=== PATIENT | male | born 1950 | race Caucasian/White ===

== ENCOUNTER 2016-04-23 00:01 | Emergency (ER) | payer OTHER ==
[~2016-04-23 00:01] MED LIST: ATOR1TAB21 PO; LISI-538 PO; METRCRM TOP; MULTCAP PO; NEXI40CA PO; STOO100C PO
[2016-04-23] MEDS ORDERED: ASPIRIN 81 MG CHEW TABLET As Ordered ONE (00:15)
[2016-04-23 01:14] LABS: BASO # 0.1 K/mm3 (0.0-0.2); BASO % 0.7 % (0.0-1.0); EOS # 0.7 K/mm3 (0.0-0.50); EOS % 8.1 % (0.0-3.0); LARGE UNSTAINED CELL # 0.5 K/mm3 (0.0-0.4); LARGE UNSTAINED CELL % 5.2 % (0.0-4.0); LYMPH # 1.7 K/mm3 (1.5-4.5); LYMPH % 20.1 % (24.0-44.0); MEAN CORPUSCULAR HEMOGLOBIN 30.8 pg (27.0-33.0); MEAN CORPUSCULAR HGB CONC 33.4 g/dl (32.0-36.5); MEAN CORPUSCULAR VOLUME 92.4 fl (80.0-96.0); MONO # 0.9 K/mm3 (0.0-0.8); MONO % 10.2 % (0.0-5.0); NEUTROPHILS # 4.8 K/mm3 (1.8-7.7); NEUTROPHILS % 55.7 % (36.0-66.0); PLATELET COUNT, AUTOMATED 351 k/mm3 (150-450); RED CELL DISTRIBUTION WIDTH 13.7 % (11.5-14.5); WHITE BLOOD COUNT 8.7 K/mm3 (4.0-10.0)
[2016-04-23 01:27] LABS: ANION GAP 7 MEQ/L (8-16); BLOOD UREA NITROGEN 20 MG/DL (7-18); CALCIUM LEVEL 8.3 MG/DL (8.8-10.2); CARBON DIOXIDE LEVEL 28 MEQ/L (21-32); CHLORIDE LEVEL 112 MEQ/L (98-107); GLOMERULAR FILTRATION RATE > 60.0 (>49); GLUCOSE, FASTING 123 MG/DL (80-110); POTASSIUM SERUM 3.8 MEQ/L (3.5-5.1); SODIUM LEVEL 147 MEQ/L (136-145)
[2016-04-23] MEDS ORDERED: PERCOCET 5MG/325MG TAB As Ordered ONE (01:28)
[2016-04-23] MEDS ORDERED: ISOVUE-370 76% 100ML VIAL (Q9967) As Ordered ONE (01:34)
--- NOTE | 2016-04-23 02:30 | REPUSA ---
CLINICAL HISTORY: Dyspnea, exclude PE. TECHNIQUE: Multiple incremental axial, coronal and oblique images are obtained from the thoracic inle t to the upper abdomen. Intravenous contrast material was administered as per pulmonary embolism prot ocol. COMMENTS: Comparison is made to the prior exam on 05/01/2015. Calcified mediastinal and hilar lymph nodes. The largest measures 1.5 cm. Bilateral paramediastinal pulmonary interstitial thickening and scarring. Mild bilateral basilar subp leural interstitial chronic pulmonary thickening. Enlarged pulmonary arteries. There is excellent opacification of pulmonary arterial system without evidence for pulmonary embolism . Aorta is of normal caliber without evidence for dissection or aneurysm. Pacemaker lies in good posi tion. There is no evidence of pleural or parenchymal mass. There are no pleural effusions. There is no evid ence of hilar or mediastinal lymphadenopathy. The heart and great vessels are within normal limits. Images of the upper abdomen demonstrate no evidence of adrenal mass. The bony structures are free of lytic or blastic lesions. Multilevel degenerative changes are seen in volving the visualized thoracolumbar spine. Scattered calcifications are seen involving the aorta and major branches compatible with atherosclero sis. Moderate large bowel fecal stasis. IMPRESSION: No evidence for pulmonary embolism. Diffuse bilateral interstitial pulmonary thickening representing a chronic, unchanged finding. Suspected pulmonary hypertension. Cardiomegaly. Thank you for your kind referral of this patient.
--- NOTE | 2016-04-23 03:24 | EDDOCDS ---
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 Aspirin was not taken prior to arrival. Adult Sepsis Screening: The patient does not have new or worsening altered mentation. Patient's respiratory rate is less than 22. Systolic blood pressure is greater than 100. Patient has a qSOFA score of 0- Negative Sepsis Screen. Suicide/Homicide risk assessment- the patient denies having any suicidal and/or homicidal ideations and does not present with any other emotional, behavioral or mental health complaints. 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 Transition of care: patient was not received from another setting of care. 00:06 Acuity: KAREN Level 3 tm5 00:06 Method Of Arrival: Walkin/Carried/Asstd tm5 Triage Assessment: 00:12 General: Appears in no apparent distress, Behavior is appropriate for age, cooperative. tm5 Pain: Location: mid-sternal area Pain currently is 1 out of 10 on a pain scale. Quality of pain is described as aching. Pt Declines HIV testing. The patient is triaged at the bedside. See Assessment in Nurses Notes section of ED record. Neurological: Level of Consciousness is awake, alert, Oriented to person, place, time. Cardiovascular: Chest pain is described as vague, radiates Does not radiate. episodes past 2 days began 2 days. Respiratory: Airway is patent Respiratory effort is even, unlabored, Respiratory pattern is regular, symmetrical. Derm: Skin is pink, warm & dry. Historical: - Allergies: Polysporin; - Home Meds: 1. aspirin 325 mg Oral tab 1 tab once daily 2. lisinopril 20 mg Oral tab 1 tab once daily 3. Nexium 40 mg Oral cpDR 1 cap 2 times per day 4. atorvastatin 20 mg oral tab 1 tab once daily - PMHx: Hiatal Hernia; Hodgkin's Lymphoma; Hypercholesterolemia; Hypertension; - PSHx: Pacemaker Insertion; spleenectomy; - Social history: Smoking status: Patient states was never smoker of tobacco. No barriers to communication noted, The patient speaks fluent [place]. - Family history: Not pertinent. - : The pt / caregiver states he / she is not on anticoagulants. Home medication list is obtained from the patient. - Exposure Risk Screening:: None identified. Screenin:16 Screening information is obtained from the patient. Fall risk: No risks identified. tm5 Assistance ADL's: requires no assistance with activities of daily living. Abuse/DV Screen: The patient / caregiver reports he/she is: not in a situation that causes fear, pain or injury. Nutritional screening: No deficits noted. Advance Directives: Currently, there is no health care proxy. There is no active DNR order. home support is adequate. Assessment: 00:30 General: Appears in no apparent distress, comfortable, Behavior is appropriate for age, cf2 cooperative. 02:57 Cardiovascular: Rhythm is ventricular pacer Chest pain is denied Reports cough cold cf2 symptoms. Vital Signs: 00:12 Pulse 89; Resp 20 S; Temp 98.3(O); Pulse Ox 100% on R/A; Weight 79.38 kg; Height 5 ft. tm5 8 in. (172.72 cm); Pain 1/10; 00:18 BP 153 / 87; tm5 01:17 BP 134 / 64 (auto/); cf2 01:17 Pulse 90 MON; Pulse Ox 93% ; cf2 01:17 BP 122 / 71; cf2 01:23 Pulse 90 MON; Pulse Ox 93% ; cf2 01:33 Pulse 88 MON; Pulse Ox 94% ; cf2 01:49 Pulse 94 MON; Pulse Ox 95% ; cf2 01:55 Pulse 88 MON; Pulse Ox 93% ; cf2 02:02 Pulse 86 MON; Pulse Ox 95% ; cf2 02:12 Pulse 86 MON; Pulse Ox 93% ; cf2 02:19 Pulse 86 MON; Pulse Ox 93% ; cf2 02:27 Pulse 82 MON; Pulse Ox 94% ; cf2 02:34 Pulse 88 MON; Pulse Ox 95% ; cf2 02:41 Pulse 82 MON; Pulse Ox 93% ; cf2 02:45 Pulse 80 MON; Pulse Ox 93% ; cf2 00:12 Body Mass Index 26.61 (79.38 kg, 172.72 cm) tm5 Vitals: 00:12 Log In Time: April 23, 2016 at 00:14. tm5 ED Course: 00:02 Patient visited by Carlene Bauer. jp5 00:02 Patient moved to Waiting jp5 00:05 Patient visited by Suzy Bailey,JIA. tm5 00:05 Patient moved to 11 cz 00:07 Triage Initiated tm5 00:09 Ann Rangel MD is Attending Physician. fg 00:09 Patient visited by Ann Rangel MD. fg 00:11 Criss Jenkins,JIA is Primary Nurse. cf2 00:11 Patient visited by Criss Jenkins RN. cf2 00:12 Family accompanied patient. tm5 00:22 Patient visited by Criss Jenkins RN. cf2 00:24 Pt greeted and oriented to ED. Patient advised of names of staff involved in care, jmv location of call mata, wait times and NPO status. Accompanied by Significant Other, Patient has correct armband on for positive identification. Placed in gown. Bed in low position. Call light in reach. Side rails up X2. telemetry monitor on. Pulse ox on. NIBP on. 00:24 EKG done. (by ED staff). Reviewed by Ann Rangel MD. jmv 00:25 Patient visited by Mike Savage PCA. jmv 00:45 Troponin Sent. cf2 00:56 Patient visited by Criss Jenkins RN. cf2 00:57 -Influenza A&B Rapid Antigen - Nose Sent. cf2 00:57 -Blood Culture Sent. cf2 00:57 B-Type Natiuretic Peptide Sent. cf2 00:57 Basic Metabolic Profile Sent. cf2 00:57 CBC with Diff Sent. cf2 00:57 Cardiac Injury Profile Sent. cf2 01:09 Patient visited by Criss Jenkins RN. cf2 01:43 [facility] Payment Agreement was scanned into [employer] and attached to record. hs2 01:52 Patient visited by Criss Jenkins RN. cf2 02:35 Truong Arambula MD is Referral Physician. fg 02:53 CT Chest Angio R/O PE Returned. EDMS 02:57 Patient visited by Criss Jenkins RN. cf2 03:13 Patient moved to cz 03:23 The patient / caregiver is instructed regarding the plan of care and ED course. cf2 03:23 Discontinued lock. No procedures done that require assistance. cf2 Administered Medications: 00:20 Drug: Aspirin 324 mg [aspirin 81 mg chewable tablet (4 tabs)] Route: PO; cf2 01:30 Drug: oxyCODONE-acetaminophen 1 tabs [oxycodone-acetaminophen 5 mg-325 mg tablet (1 cf2 tabs)] Route: PO; Order Results: Lab Order: B-Type Natiuretic Peptide; SPEC'M 04/23/16 00:26 Test: BRAIN NATRIURETIC PEPTIDE; Value: 161; Range: <100; Abnormal: Above high normal; Units: PG/ML; Status: F Lab Order: Basic Metabolic Profile; SPEC'M 04/23/16 00:26 Test: GLUCOSE, FASTING; Value: 123; Range: 80-110; Abnormal: Above high normal; Units: MG/DL; Status: F Test: BLOOD UREA NITROGEN; Value: 20; Range: 7-18; Abnormal: Above high normal; Units: MG/DL; Status: F Test: CREATININE FOR GFR; Value: 1.00; Range: 0.70-1.30; Units: MG/DL; Status: F Test: GLOMERULAR FILTRATION RATE; Value: > 60.0; Range: >49; Status: F Test: SODIUM LEVEL; Value: 147; Range: 136-145; Abnormal: Above high normal; Units: MEQ/L; Status: F Test: POTASSIUM SERUM; Value: 3.8; Range: 3.5-5.1; Units: MEQ/L; Status: F Test: CHLORIDE LEVEL; Value: 112; Range: 98-107; Abnormal: Above high normal; Units: MEQ/L; Status: F Test: CARBON DIOXIDE LEVEL; Value: 28; Range: 21-32; Units: MEQ/L; Status: F Test: ANION GAP; Value: 7; Range: 8-16; Abnormal: Below low normal; Units: MEQ/L; Status: F Test: CALCIUM LEVEL; Value: 8.3; Range: 8.8-10.2; Abnormal: Below low normal; Units: MG/DL; Status: F Test Note: ; Units are mL/min/1.73 m2 Chronic Kidney Disease Staging per NKF: Stage I & II GFR >=60 Normal to Mildly Decreased Stage III GFR 30-59 Moderately Decreased Stage IV GFR 15-29 Severely Decreased Stage V GFR <15 Very Little GFR Left ESRD GFR <15 on MEDICAL INTERN Lab Order: CBC with Diff; MARILU 04/23/16 00:26 Test: WHITE BLOOD COUNT; Value: 8.7; Range: 4.0-10.0; Units: K/mm3; Status: F Test: RED BLOOD COUNT; Value: 4.37; Range: 4.30-6.10; Units: M/mm3; Status: F Test: HEMOGLOBIN; Value: 13.5; Range: 14.0-18.0; Abnormal: Below low normal; Units: g/dl; Status: F Test: HEMATOCRIT; Value: 40.3; Range: 42.0-52.0; Abnormal: Below low normal; Units: %; Status: F Test: MEAN CORPUSCULAR VOLUME; Value: 92.4; Range: 80.0-96.0; Units: fl; Status: F Test: MEAN CORPUSCULAR HEMOGLOBIN; Value: 30.8; Range: 27.0-33.0; Units: pg; Status: F Test: MEAN CORPUSCULAR HGB CONC; Value: 33.4; Range: 32.0-36.5; Units: g/dl; Status: F Test: RED CELL DISTRIBUTION WIDTH; Value: 13.7; Range: 11.5-14.5; Units: %; Status: F Test: PLATELET COUNT, AUTOMATED; Value: 351; Range: 150-450; Units: k/mm3; Status: F Test: NEUTROPHILS %; Value: 55.7; Range: 36.0-66.0; Units: %; Status: F Test: LYMPH %; Value: 20.1; Range: 24.0-44.0; Abnormal: Below low normal; Units: %; Status: F Test: MONO %; Value: 10.2; Range: 0.0-5.0; Abnormal: Above high normal; Units: %; Status: F Test: EOS %; Value: 8.1; Range: 0.0-3.0; Abnormal: Above high normal; Units: %; Status: F Test: BASO %; Value: 0.7; Range: 0.0-1.0; Units: %; Status: F Test: LARGE UNSTAINED CELL %; Value: 5.2; Range: 0.0-4.0; Abnormal: Above high normal; Units: %; Status: F Test: NEUTROPHILS #; Value: 4.8; Range: 1.8-7.7; Units: K/mm3; Status: F Test: LYMPH #; Value: 1.7; Range: 1.5-4.5; Units: K/mm3; Status: F Test: MONO #; Value: 0.9; Range: 0.0-0.8; Abnormal: Above high normal; Units: K/mm3; Status: F Test: EOS #; Value: 0.7; Range: 0.0-0.50; Abnormal: Above high normal; Units: K/mm3; Status: F Test: BASO #; Value: 0.1; Range: 0.0-0.2; Units: K/mm3; Status: F Test: LARGE UNSTAINED CELL #; Value: 0.5; Range: 0.0-0.4; Abnormal: Above high normal; Units: K/mm3; Status: F Lab Order: Cardiac Injury Profile; SPEC'M 04/23/16 00:26 Test: CPK CREATINE PHOSPHOKINASE; Value: 223; Range: 39-308; Units: U/L; Status: F Test: CK-MB VALUE MASS; Value: 3.7; Range: 0.0-3.6; Abnormal: Above high normal; Units: NG/ML; Status: F Test: MB/CK RELATIVE INDEX; Value: 1.65; Range: < OR =4; Status: F Test Note: ; DIAGNOSIS CRITERIA MMB ng/ml Relative Index (RI) NON-AMI < or = 5 N/A ARANA ZONE > 5 < or = 4 AMI > 5 > 4 Lab Order: Troponin; SPEC'M 04/23/16 00:26 Test: TROPONIN I; Value: 0.05; Range: < 0.10; Units: NG/ML; Status: F Test Note: ; Troponin I Reference Interval for [employer] LOCI: 99th Percentile= 0.00-0.045 ng/ml Risk Stratification: <= 0.10 ng/ml Decreased Risk for Adverse Clinical Events. 0.10-1.50 ng/ml Increased Risk for Adverse Clinical Events. Evaluation of additional criterion and/or repeat testing in 2-6 hours is suggested to rule out myocardial damage. >= 1.50 ng/ml Indicative of Myocardial Injury. Lab Order: -Influenza A&B Rapid Antigen - Nose; SPEC'M 04/23/16 00:26 Test: INFLUENZA A RAPID SCR by ICA; Value: INFLUENZA A RESULTS NEGATIVE; Status: F Test: INFLUENZA A RAPID SCR by ICA; Value: Comments:; Status: F Test: INFLUENZA B RAPID SCR by ICA; Value: INFLUENZA B RESULTS NEGATIVE; Status: F Test Note: ; The Influenza test is a direct rapid immunoassay for the qualitative detection of Influenza viral antigen. Cell culture (Viral Culture) testing should be considered to confirm NEGATIVE results and to assist in detecting other viruses that can provide similar clinical symptoms. Please contact the lab within 24 hours ([phone] if confirmatory testing is desired. Radiology Order: CT Chest Angio R/O PE Test: CT Chest Angio R/O PE REASON FOR EXAMINATION: Chest Pain;Shortness of Breath; ; CLINICAL HISTORY: Dyspnea, exclude PE.; TECHNIQUE: Multiple incremental axial, coronal and oblique images are obtained from the thoracic inle; t to the upper abdomen. Intravenous contrast material was administered as per pulmonary embolism prot; ocol.; COMMENTS:; Comparison is made to the prior exam on 05/01/2015.; Calcified mediastinal and hilar lymph nodes. The largest measures 1.5 cm.; Bilateral paramediastinal pulmonary interstitial thickening and scarring. Mild bilateral basilar subp; leural interstitial chronic pulmonary thickening.; Enlarged pulmonary arteries.; There is excellent opacification of pulmonary arterial system without evidence for pulmonary embolism; . Aorta is of normal caliber without evidence for dissection or aneurysm. Pacemaker lies in good posi; tion.; There is no evidence of pleural or parenchymal mass. There are no pleural effusions. There is no evid; ence of hilar or mediastinal lymphadenopathy. The heart and great vessels are within normal limits.; Images of the upper abdomen demonstrate no evidence of adrenal mass.; The bony structures are free of lytic or blastic lesions. Multilevel degenerative changes are seen in; volving the visualized thoracolumbar spine.; Scattered calcifications are seen involving the aorta and major branches compatible with atherosclero; sis.; Moderate large bowel fecal stasis.; IMPRESSION:; No evidence for pulmonary embolism.; Diffuse bilateral interstitial pulmonary thickening representing a chronic, unchanged finding.; Suspected pulmonary hypertension.; Cardiomegaly.; Thank you for your kind referral of this patient.; ; Outcome: 02:13 Discharge ordered by Provider. fg 02:35 Discharge ordered by Provider. fg 03:22 Discharge Assessment: Patient awake, alert and oriented x 3. No cognitive and/or cf2 functional deficits noted. Patient verbalized understanding of disposition instructions. Patient awake and alert. Oriented to person, place and time. patient administered narcotics - yes. Pt provided with safe discharge. The following High Risk Discharge criteria are identified: None. Discharged to home ambulatory. Condition: good. Discharge instructions given to patient, Instructed on discharge instructions, follow up and referral plans. Demonstrated understanding of instructions, Pt was receptive of discharge instructions/ teaching. CT Study completed. Property :Personal belongings accompany Pt. 03:23 Patient left the ED. cf2 Signatures: Dispatcher [employer] EDMS Donato Valera, RN RN Carlene Billings jp5 Ann Rangel MD MD fg Stanton, Hillary, Reg Reg hs2 Criss JenkinsRN RN cf2 Mike Savage, DISABILITY COORDINATOR DISABILITY COORDINATOR fernandav Suzy Bailey,RN RN tm5 Corrections: (The following items were deleted from the chart) 02:59 02:57 General: Appears in no apparent distress, comfortable, Behavior is appropriate cf2 for age, cooperative, cf2 MTDD
--- NOTE | 2016-04-23 03:24 | EDDOCDS ---
Physician Documentation [facility] Name: Phill Corey Age: 66 yrs Sex: Male : 1950 Arrival Date: 04/23/2016 Time: 00:01 Bed D1 Private MD: Disposition: 04/23/16 02:35 Discharged to Home/Self Care. Impression: Chest pain, unspecified. - Condition is Stable. - Discharge Instructions: Nonspecific Chest Pain. - Medication Reconciliation, Local Pharmacy Hours form. - Follow up: Truong Arambula MD; When: Tomorrow; Reason: Continuance of care. - Problem is an ongoing problem. - Symptoms are unchanged. Historical: - Allergies: Polysporin; - Home Meds: 1. aspirin 325 mg Oral tab 1 tab once daily 2. lisinopril 20 mg Oral tab 1 tab once daily 3. Nexium 40 mg Oral cpDR 1 cap 2 times per day 4. atorvastatin 20 mg oral tab 1 tab once daily - PMHx: Hiatal Hernia; Hodgkin's Lymphoma; Hypercholesterolemia; Hypertension; - PSHx: Pacemaker Insertion; spleenectomy; - Social history: Smoking status: Patient states was never smoker of tobacco. No barriers to communication noted, The patient speaks fluent [place]. - Family history: Not pertinent. - : The pt / caregiver states he / she is not on anticoagulants. Home medication list is obtained from the patient. - Exposure Risk Screening:: None identified. Vital Signs: 04/23 00:12 Pulse 89; Resp 20 S; Temp 98.3(O); Pulse Ox 100% on R/A; Weight 79.38 kg / 175 lbs; tm5 Height 5 ft. 8 in. (172.72 cm); Pain 03/10; 00:18 BP 153 / 87; tm5 01:17 BP 134 / 64 (auto/); cf2 01:17 Pulse 90 MON; Pulse Ox 93% ; cf2 01:17 BP 122 / 71; cf2 01:23 Pulse 90 MON; Pulse Ox 93% ; cf2 01:33 Pulse 88 MON; Pulse Ox 94% ; cf2 01:49 Pulse 94 MON; Pulse Ox 95% ; cf2 01:55 Pulse 88 MON; Pulse Ox 93% ; cf2 02:02 Pulse 86 MON; Pulse Ox 95% ; cf2 02:12 Pulse 86 MON; Pulse Ox 93% ; cf2 02:19 Pulse 86 MON; Pulse Ox 93% ; cf2 02:27 Pulse 82 MON; Pulse Ox 94% ; cf2 02:34 Pulse 88 MON; Pulse Ox 95% ; cf2 02:41 Pulse 82 MON; Pulse Ox 93% ; cf2 02:45 Pulse 80 MON; Pulse Ox 93% ; cf2 00:12 Body Mass Index 26.61 (79.38 kg, 172.72 cm) tm5 MDM: 00:05 ECG WITH READING ER PHYS+CARDIAG ordered. EDMS 00:06 Stringer Up Soldering Machine/Pulse Ox/q 15 min VS ordered. fg 00:06 IV Saline Lock ordered. fg 00:06 Oxygen at 4L/Min NC or Home dosage ordered. fg 00:06 Rhythm Strip to chart ordered. fg 00:06 Aspirin 324 mg PO once ordered. fg 00:07 -Blood Culture Ordered. EDMS 00:07 B-Type Natiuretic Peptide Ordered. EDMS 00:07 Basic Metabolic Profile Ordered. EDMS 00:07 CBC with Diff Ordered. EDMS 00:07 Cardiac Injury Profile Ordered. EDMS 00:07 Troponin Ordered. EDMS 00:09 Chest, 1 View Ordered. EDMS 00:28 CT Chest Angio R/O PE Ordered. EDMS 00:51 Obtain sample by nasal aspiration ordered. fg 00:52 -Influenza A&B Rapid Antigen - Nose Ordered. EDMS 01:14 Financial registration complete. hs2 01:25 oxyCODONE-acetaminophen 5 mg-325 mg 1 tabs PO once ordered. fg 01:43 [facility] Payment Agreement was scanned into [email or web address] and attached to record. hs2 Administered Medications: 00:20 Drug: Aspirin 324 mg [aspirin 81 mg chewable tablet (4 tabs)] Route: PO; cf2 01:30 Drug: oxyCODONE-acetaminophen 1 tabs [oxycodone-acetaminophen 5 mg-325 mg tablet (1 cf2 tabs)] Route: PO; Signatures: Dispatcher [employer] EDMS Ann Rangel MD MD fg Vania Klein, Reg Reg hs2 Criss Jenkins,RN RN cf2 Suzy Bailey RN RN tm5 The chart was reviewed and I authenticate all verbal orders and agree with the evaluation and treatment provided.Attachments: 01:43 [facility] Payment Agreement hs2 MTDD
--- NOTE | 2016-04-23 08:08 | REP ---
Clinical: Chest pain. Comparison: 07/19/2015 Findings: Mediastinum and cardiac silhouette are stable. Innumerable calcified hilar and mediastinal lymph nodes are again identified. Pacemaker. Lung dejesus are clear without acute consolidation, effusion or pneumothorax. Impression: Chronic stable changes. No acute cardiopulmonary process. Signed by Travis Shepherd MD 04/23/2016 08:00 A
--- NOTE | 2016-04-24 15:08 | ECGEPIP ---
Stationary ECG Study [facility] - ED Test Date: 2016-04-23 Pat Name: STEPHEN TODD Department: Room: - Gender: M Privacy Director: padilla : 1950 Requested By: RADHA Jackson Order Number: [id number] Reading MD: Nohemi Mathur Measurements Intervals [place] Rate: 94 P: 49 HI: 197 QRS: -54 QRSD: 169 T: 99 QT: 399 QTc: 499 Interpretive Statements ELECTRONIC VENTRICULAR PACEMAKER ABNORMAL RHYTHM ECG SINUS RHYTHM PRIOR 07/19/15 NOT PACED Electronically Signed On 04-24-2016 15:07:40 EST by Nohemi Mathur
--- NOTE | 2016-04-25 04:24 | EDDOCDS ---
Physician Documentation [facility] Name: Phill Corey Age: 66 yrs Sex: Male : 1950 Arrival Date: 04/23/2016 Time: 00:01 Bed D1 Private MD: Disposition: 04/23/16 02:35 Discharged to Home/Self Care. Impression: Chest pain, unspecified. - Condition is Stable. - Discharge Instructions: Nonspecific Chest Pain. - Medication Reconciliation, Local Pharmacy Hours form. - Follow up: Truong Arambula MD; When: Tomorrow; Reason: Continuance of care. - Problem is an ongoing problem. - Symptoms are unchanged. Historical: - Allergies: Polysporin; - Home Meds: 1. aspirin 325 mg Oral tab 1 tab once daily 2. lisinopril 20 mg Oral tab 1 tab once daily 3. Nexium 40 mg Oral cpDR 1 cap 2 times per day 4. atorvastatin 20 mg oral tab 1 tab once daily - PMHx: Hiatal Hernia; Hodgkin's Lymphoma; Hypercholesterolemia; Hypertension; - PSHx: Pacemaker Insertion; spleenectomy; - Social history: Smoking status: Patient states was never smoker of tobacco. No barriers to communication noted, The patient speaks fluent Croatian. - Family history: Not pertinent. - : The pt / caregiver states he / she is not on anticoagulants. Home medication list is obtained from the patient. - Exposure Risk Screening:: None identified. Vital Signs: 04/23 00:12 Pulse 89; Resp 20 S; Temp 98.3(O); Pulse Ox 100% on R/A; Weight 79.38 kg / 175 lbs; tm5 Height 5 ft. 8 in. (172.72 cm); Pain 03/10; 00:18 BP 153 / 87; tm5 01:17 BP 134 / 64 (auto/); cf2 01:17 Pulse 90 MON; Pulse Ox 93% ; cf2 01:17 BP 122 / 71; cf2 01:23 Pulse 90 MON; Pulse Ox 93% ; cf2 01:33 Pulse 88 MON; Pulse Ox 94% ; cf2 01:49 Pulse 94 MON; Pulse Ox 95% ; cf2 01:55 Pulse 88 MON; Pulse Ox 93% ; cf2 02:02 Pulse 86 MON; Pulse Ox 95% ; cf2 02:12 Pulse 86 MON; Pulse Ox 93% ; cf2 02:19 Pulse 86 MON; Pulse Ox 93% ; cf2 02:27 Pulse 82 MON; Pulse Ox 94% ; cf2 02:34 Pulse 88 MON; Pulse Ox 95% ; cf2 02:41 Pulse 82 MON; Pulse Ox 93% ; cf2 02:45 Pulse 80 MON; Pulse Ox 93% ; cf2 00:12 Body Mass Index 26.61 (79.38 kg, 172.72 cm) tm5 MDM: 00:05 ECG WITH READING ER PHYS+CARDIAG ordered. EDMS 00:06 Planer Hand/Pulse Ox/q 15 min VS ordered. fg 00:06 IV Saline Lock ordered. fg 00:06 Oxygen at 4L/Min NC or Home dosage ordered. fg 00:06 Rhythm Strip to chart ordered. fg 00:06 Aspirin 324 mg PO once ordered. fg 00:07 -Blood Culture Ordered. EDMS 00:07 B-Type Natiuretic Peptide Ordered. EDMS 00:07 Basic Metabolic Profile Ordered. EDMS 00:07 CBC with Diff Ordered. EDMS 00:07 Cardiac Injury Profile Ordered. EDMS 00:07 Troponin Ordered. EDMS 00:09 Chest, 1 View Ordered. EDMS 00:28 CT Chest Angio R/O PE Ordered. EDMS 00:51 Obtain sample by nasal aspiration ordered. fg 00:52 -Influenza A&B Rapid Antigen - Nose Ordered. EDMS 01:14 Financial registration complete. hs2 01:25 oxyCODONE-acetaminophen 5 mg-325 mg 1 tabs PO once ordered. fg 01:43 [facility] [place] Agreement was scanned into [email or web address] and attached to record. hs2 21:21 T-Sheet-- Draft Copy was scanned into [email or web address] and attached to record. klr Administered Medications: 00:20 Drug: Aspirin 324 mg [aspirin 81 mg chewable tablet (4 tabs)] Route: PO; cf2 01:30 Drug: oxyCODONE-acetaminophen 1 tabs [oxycodone-acetaminophen 5 mg-325 mg tablet (1 cf2 tabs)] Route: PO; Signatures: Dispatcher [employer] EDMS Ann Rangel MD MD fg Vania Klein, Reg Reg hs2 Hannah Griffith klCriss Marshall RN RN cf2 Suzy Bailey RN RN tm5 The chart was reviewed and I authenticate all verbal orders and agree with the evaluation and treatment provided.Attachments: 01:43 [facility] Payment Agreement hs2 21:21 T-Sheet-- Draft Copy klr Chart Complete MTDD
--- NOTE | 2016-04-25 04:25 | EDDOCDS ---
Physician Documentation [facility] Name: Phill Corey Age: 66 yrs Sex: Male : 1950 Arrival Date: 04/23/2016 Time: 00:01 Bed D1 Private MD: Disposition: 04/23/16 02:35 Discharged to Home/Self Care. Impression: Chest pain, unspecified. - Condition is Stable. - Discharge Instructions: Nonspecific Chest Pain. - Medication Reconciliation, Local Pharmacy Hours form. - Follow up: Truong Arambula MD; When: Tomorrow; Reason: Continuance of care. - Problem is an ongoing problem. - Symptoms are unchanged. Historical: - Allergies: Polysporin; - Home Meds: 1. aspirin 325 mg Oral tab 1 tab once daily 2. lisinopril 20 mg Oral tab 1 tab once daily 3. Nexium 40 mg Oral cpDR 1 cap 2 times per day 4. atorvastatin 20 mg oral tab 1 tab once daily - PMHx: Hiatal Hernia; Hodgkin's Lymphoma; Hypercholesterolemia; Hypertension; - PSHx: Pacemaker Insertion; spleenectomy; - Social history: Smoking status: Patient states was never smoker of tobacco. No barriers to communication noted, The patient speaks fluent Vietnamese. - Family history: Not pertinent. - : The pt / caregiver states he / she is not on anticoagulants. Home medication list is obtained from the patient. - Exposure Risk Screening:: None identified. Vital Signs: 04/23 00:12 Pulse 89; Resp 20 S; Temp 98.3(O); Pulse Ox 100% on R/A; Weight 79.38 kg / 175 lbs; tm5 Height 5 ft. 8 in. (172.72 cm); Pain 03/10; 00:18 BP 153 / 87; tm5 01:17 BP 134 / 64 (auto/); cf2 01:17 Pulse 90 MON; Pulse Ox 93% ; cf2 01:17 BP 122 / 71; cf2 01:23 Pulse 90 MON; Pulse Ox 93% ; cf2 01:33 Pulse 88 MON; Pulse Ox 94% ; cf2 01:49 Pulse 94 MON; Pulse Ox 95% ; cf2 01:55 Pulse 88 MON; Pulse Ox 93% ; cf2 02:02 Pulse 86 MON; Pulse Ox 95% ; cf2 02:12 Pulse 86 MON; Pulse Ox 93% ; cf2 02:19 Pulse 86 MON; Pulse Ox 93% ; cf2 02:27 Pulse 82 MON; Pulse Ox 94% ; cf2 02:34 Pulse 88 MON; Pulse Ox 95% ; cf2 02:41 Pulse 82 MON; Pulse Ox 93% ; cf2 02:45 Pulse 80 MON; Pulse Ox 93% ; cf2 00:12 Body Mass Index 26.61 (79.38 kg, 172.72 cm) tm5 MDM: 00:05 ECG WITH READING ER PHYS+CARDIAG ordered. EDMS 00:06 General Engineer/Pulse Ox/q 15 min VS ordered. fg 00:06 IV Saline Lock ordered. fg 00:06 Oxygen at 4L/Min NC or Home dosage ordered. fg 00:06 Rhythm Strip to chart ordered. fg 00:06 Aspirin 324 mg PO once ordered. fg 00:07 -Blood Culture Ordered. EDMS 00:07 B-Type Natiuretic Peptide Ordered. EDMS 00:07 Basic Metabolic Profile Ordered. EDMS 00:07 CBC with Diff Ordered. EDMS 00:07 Cardiac Injury Profile Ordered. EDMS 00:07 Troponin Ordered. EDMS 00:09 Chest, 1 View Ordered. EDMS 00:28 CT Chest Angio R/O PE Ordered. EDMS 00:51 Obtain sample by nasal aspiration ordered. fg 00:52 -Influenza A&B Rapid Antigen - Nose Ordered. EDMS 01:14 Financial registration complete. hs2 01:25 oxyCODONE-acetaminophen 5 mg-325 mg 1 tabs PO once ordered. fg 01:43 [facility] [place] Payment Agreement was scanned into [employer] and attached to record. hs2 21:21 T-Sheet-- Draft Copy was scanned into [employer] and attached to record. klr Administered Medications: 00:20 Drug: Aspirin 324 mg [aspirin 81 mg chewable tablet (4 tabs)] Route: PO; cf2 01:30 Drug: oxyCODONE-acetaminophen 1 tabs [oxycodone-acetaminophen 5 mg-325 mg tablet (1 cf2 tabs)] Route: PO; Signatures: Dispatcher MedHost EDMS Ann Rangel MD MD fg Vania Klein, Reg Reg hs2 Hannah Griffith klCriss Marshall RN RN cf2 Suzy Bailey RN RN tm5 The chart was reviewed and I authenticate all verbal orders and agree with the evaluation and treatment provided.Attachments: 01:43 [facility] Payment Agreement hs2 21:21 T-Sheet-- Draft Copy klr Chart Complete MTDD
--- NOTE | 2016-04-25 04:25 | EDDOCDS ---
Nurse's Notes [facility] Name: Stephen Corey Age: 66 yrs Sex: Male : 1950 Arrival Date: 04/23/2016 Time: 00:01 Bed D1 Private MD: Diagnosis: Chest pain, unspecified Presentation: 04/23 00:06 Presenting complaint: Patient states: per pt chest pain & SOB started a few days ago, tm5 but tonight chest pain became worse, pt was seen by his PMD today for neck pain, dry, HAMMERER cough as well, pt with history of Pacemaker. Aspirin was not taken prior to arrival. Adult Sepsis Screening: The patient does not have new or worsening altered mentation. Patient's respiratory rate is less than 22. Systolic blood pressure is greater than 100. Patient has a qSOFA score of 0- Negative Sepsis Screen. Suicide/Homicide risk assessment- the patient denies having any suicidal and/or homicidal ideations and does not present with any other emotional, behavioral or mental health complaints. Status: Patient is not a gas line servicer or dependent. Transition of care: patient was not received from another setting of care. 00:06 Acuity: KAREN Level 3 tm5 00:06 Method Of Arrival: Walkin/Carried/Asstd tm5 Triage Assessment: 00:12 General: Appears in no apparent distress, Behavior is appropriate for age, cooperative. tm5 Pain: Location: mid-sternal area Pain currently is 1 out of 10 on a pain scale. Quality of pain is described as aching. Pt Declines HIV testing. The patient is triaged at the bedside. See Assessment in Nurses Notes section of ED record. Neurological: Level of Consciousness is awake, alert, Oriented to person, place, time. Cardiovascular: Chest pain is described as vague, radiates Does not radiate. episodes past 2 days began 2 days. Respiratory: Airway is patent Respiratory effort is even, unlabored, Respiratory pattern is regular, symmetrical. Derm: Skin is pink, warm & dry. Historical: - Allergies: Polysporin; - Home Meds: 1. aspirin 325 mg Oral tab 1 tab once daily 2. lisinopril 20 mg Oral tab 1 tab once daily 3. Nexium 40 mg Oral cpDR 1 cap 2 times per day 4. atorvastatin 20 mg oral tab 1 tab once daily - PMHx: Hiatal Hernia; Hodgkin's Lymphoma; Hypercholesterolemia; Hypertension; - PSHx: Pacemaker Insertion; spleenectomy; - Social history: Smoking status: Patient states was never smoker of tobacco. No barriers to communication noted, The patient speaks fluent [place]. - Family history: Not pertinent. - : The pt / caregiver states he / she is not on anticoagulants. Home medication list is obtained from the patient. - Exposure Risk Screening:: None identified. Screenin:16 Screening information is obtained from the patient. Fall risk: No risks identified. tm5 Assistance ADL's: requires no assistance with activities of daily living. Abuse/DV Screen: The patient / caregiver reports he/she is: not in a situation that causes fear, pain or injury. Nutritional screening: No deficits noted. Advance Directives: Currently, there is no health care proxy. There is no active DNR order. home support is adequate. Assessment: 00:30 General: Appears in no apparent distress, comfortable, Behavior is appropriate for age, cf2 cooperative. 02:57 Cardiovascular: Rhythm is ventricular pacer Chest pain is denied Reports cough cold cf2 symptoms. Vital Signs: 00:12 Pulse 89; Resp 20 S; Temp 98.3(O); Pulse Ox 100% on R/A; Weight 79.38 kg; Height 5 ft. tm5 8 in. (172.72 cm); Pain 1/10; 00:18 BP 153 / 87; tm5 01:17 BP 134 / 64 (auto/); cf2 01:17 Pulse 90 MON; Pulse Ox 93% ; cf2 01:17 BP 122 / 71; cf2 01:23 Pulse 90 MON; Pulse Ox 93% ; cf2 01:33 Pulse 88 MON; Pulse Ox 94% ; cf2 01:49 Pulse 94 MON; Pulse Ox 95% ; cf2 01:55 Pulse 88 MON; Pulse Ox 93% ; cf2 02:02 Pulse 86 MON; Pulse Ox 95% ; cf2 02:12 Pulse 86 MON; Pulse Ox 93% ; cf2 02:19 Pulse 86 MON; Pulse Ox 93% ; cf2 02:27 Pulse 82 MON; Pulse Ox 94% ; cf2 02:34 Pulse 88 MON; Pulse Ox 95% ; cf2 02:41 Pulse 82 MON; Pulse Ox 93% ; cf2 02:45 Pulse 80 MON; Pulse Ox 93% ; cf2 00:12 Body Mass Index 26.61 (79.38 kg, 172.72 cm) tm5 Vitals: 00:12 Log In Time: April 23, 2016 at 00:14. tm5 ED Course: 00:02 Patient visited by Carlene Bauer. jp5 00:02 Patient moved to Waiting jp5 00:05 Patient visited by Suzy Bailey,JIA. tm5 00:05 Patient moved to 11 cz 00:07 Triage Initiated tm5 00:09 Ann Rangel MD is Attending Physician. fg 00:09 Patient visited by Ann Rangel MD. fg 00:11 Criss Jenkins,JIA is Primary Nurse. cf2 00:11 Patient visited by Criss Jenkins RN. cf2 00:12 Family accompanied patient. tm5 00:22 Patient visited by Criss Jenkins RN. cf2 00:24 Pt greeted and oriented to ED. Patient advised of names of staff involved in care, jmv location of call mata, wait times and NPO status. Accompanied by Significant Other, Patient has correct armband on for positive identification. Placed in gown. Bed in low position. Call light in reach. Side rails up X2. quality control tester on. Pulse ox on. NIBP on. 00:24 EKG done. (by ED staff). Reviewed by Ann Rangel MD. jmv 00:25 Patient visited by Mike Savage PCA. jmv 00:45 Troponin Sent. cf2 00:56 Patient visited by Criss Jenkins RN. cf2 00:57 -Influenza A&B Rapid Antigen - Nose Sent. cf2 00:57 -Blood Culture Sent. cf2 00:57 B-Type Natiuretic Peptide Sent. cf2 00:57 Basic Metabolic Profile Sent. cf2 00:57 CBC with Diff Sent. cf2 00:57 Cardiac Injury Profile Sent. cf2 01:09 Patient visited by Criss Jenkins RN. cf2 01:43 [facility] Payment Agreement was scanned into [employer] and attached to record. hs2 01:52 Patient visited by Criss Jenkins RN. cf2 02:35 Truong Arambula MD is Referral Physician. fg 02:53 CT Chest Angio R/O PE Returned. EDMS 02:57 Patient visited by Criss Jenkins RN. cf2 03:13 Patient moved to D1 cz 03:23 The patient / caregiver is instructed regarding the plan of care and ED course. cf2 03:23 Discontinued lock. No procedures done that require assistance. cf2 08:33 Chest, 1 View Returned. EDMS 21:21 T-Sheet-- Draft Copy was scanned into Cognitive Code and attached to record. [facility] 04/24 15:14 EKG-ADULT Returned. EDMS Administered Medications: 04/23 00:20 Drug: Aspirin 324 mg [aspirin 81 mg chewable tablet (4 tabs)] Route: PO; cf2 01:30 Drug: oxyCODONE-acetaminophen 1 tabs [oxycodone-acetaminophen 5 mg-325 mg tablet (1 cf2 tabs)] Route: PO; Order Results: Lab Order: -Blood Culture; SPEC'M 04/23/16 00:26 Test: BLOOD CULTURE; Value: No growth after 24 hours . All specimens observed; Status: F Test: BLOOD CULTURE; Value: for 5 days. Results final at that time.; Status: F Test: BLOOD CULTURE; Value: No Growth after 48 hours. All Specimens observed; Status: F Test: BLOOD CULTURE; Value: for 7 days. Results final at that time.; Status: F Lab Order: B-Type Natiuretic Peptide; SPEC'M 04/23/16 00:26 Test: BRAIN NATRIURETIC PEPTIDE; Value: 161; Range: <100; Abnormal: Above high normal; Units: PG/ML; Status: F Lab Order: Basic Metabolic Profile; SPEC'M 04/23/16 00:26 Test: GLUCOSE, FASTING; Value: 123; Range: 80-110; Abnormal: Above high normal; Units: MG/DL; Status: F Test: BLOOD UREA NITROGEN; Value: 20; Range: 7-18; Abnormal: Above high normal; Units: MG/DL; Status: F Test: CREATININE FOR GFR; Value: 1.00; Range: 0.70-1.30; Units: MG/DL; Status: F Test: GLOMERULAR FILTRATION RATE; Value: > 60.0; Range: >49; Status: F Test: SODIUM LEVEL; Value: 147; Range: 136-145; Abnormal: Above high normal; Units: MEQ/L; Status: F Test: POTASSIUM SERUM; Value: 3.8; Range: 3.5-5.1; Units: MEQ/L; Status: F Test: CHLORIDE LEVEL; Value: 112; Range: 98-107; Abnormal: Above high normal; Units: MEQ/L; Status: F Test: CARBON DIOXIDE LEVEL; Value: 28; Range: 21-32; Units: MEQ/L; Status: F Test: ANION GAP; Value: 7; Range: 8-16; Abnormal: Below low normal; Units: MEQ/L; Status: F Test: CALCIUM LEVEL; Value: 8.3; Range: 8.8-10.2; Abnormal: Below low normal; Units: MG/DL; Status: F Test Note: ; Units are mL/min/1.73 m2 Chronic Kidney Disease Staging per NKF: Stage I & II GFR >=60 Normal to Mildly Decreased Stage III GFR 30-59 Moderately Decreased Stage IV GFR 15-29 Severely Decreased Stage V GFR <15 Very Little GFR Left ESRD GFR <15 on REED FIXER Lab Order: CBC with Diff; SPEC'M 04/23/16 00:26 Test: WHITE BLOOD COUNT; Value: 8.7; Range: 4.0-10.0; Units: K/mm3; Status: F Test: RED BLOOD COUNT; Value: 4.37; Range: 4.30-6.10; Units: M/mm3; Status: F Test: HEMOGLOBIN; Value: 13.5; Range: 14.0-18.0; Abnormal: Below low normal; Units: g/dl; Status: F Test: HEMATOCRIT; Value: 40.3; Range: 42.0-52.0; Abnormal: Below low normal; Units: %; Status: F Test: MEAN CORPUSCULAR VOLUME; Value: 92.4; Range: 80.0-96.0; Units: fl; Status: F Test: MEAN CORPUSCULAR HEMOGLOBIN; Value: 30.8; Range: 27.0-33.0; Units: pg; Status: F Test: MEAN CORPUSCULAR HGB CONC; Value: 33.4; Range: 32.0-36.5; Units: g/dl; Status: F Test: RED CELL DISTRIBUTION WIDTH; Value: 13.7; Range: 11.5-14.5; Units: %; Status: F Test: PLATELET COUNT, AUTOMATED; Value: 351; Range: 150-450; Units: k/mm3; Status: F Test: NEUTROPHILS %; Value: 55.7; Range: 36.0-66.0; Units: %; Status: F Test: LYMPH %; Value: 20.1; Range: 24.0-44.0; Abnormal: Below low normal; Units: %; Status: F Test: MONO %; Value: 10.2; Range: 0.0-5.0; Abnormal: Above high normal; Units: %; Status: F Test: EOS %; Value: 8.1; Range: 0.0-3.0; Abnormal: Above high normal; Units: %; Status: F Test: BASO %; Value: 0.7; Range: 0.0-1.0; Units: %; Status: F Test: LARGE UNSTAINED CELL %; Value: 5.2; Range: 0.0-4.0; Abnormal: Above high normal; Units: %; Status: F Test: NEUTROPHILS #; Value: 4.8; Range: 1.8-7.7; Units: K/mm3; Status: F Test: LYMPH #; Value: 1.7; Range: 1.5-4.5; Units: K/mm3; Status: F Test: MONO #; Value: 0.9; Range: 0.0-0.8; Abnormal: Above high normal; Units: K/mm3; Status: F Test: EOS #; Value: 0.7; Range: 0.0-0.50; Abnormal: Above high normal; Units: K/mm3; Status: F Test: BASO #; Value: 0.1; Range: 0.0-0.2; Units: K/mm3; Status: F Test: LARGE UNSTAINED CELL #; Value: 0.5; Range: 0.0-0.4; Abnormal: Above high normal; Units: K/mm3; Status: F Lab Order: Cardiac Injury Profile; SPEC'M 04/23/16 00:26 Test: CPK CREATINE PHOSPHOKINASE; Value: 223; Range: 39-308; Units: U/L; Status: F Test: CK-MB VALUE MASS; Value: 3.7; Range: 0.0-3.6; Abnormal: Above high normal; Units: NG/ML; Status: F Test: MB/CK RELATIVE INDEX; Value: 1.65; Range: < OR =4; Status: F Test Note: ; DIAGNOSIS CRITERIA MMB ng/ml Relative Index (RI) NON-AMI < or = 5 N/A ARANA ZONE > 5 < or = 4 AMI > 5 > 4 Lab Order: Troponin; SPEC'M 04/23/16 00:26 Test: TROPONIN I; Value: 0.05; Range: < 0.10; Units: NG/ML; Status: F Test Note: ; Troponin I Reference Interval for Siemens [employer]. LOCI: 99th Percentile= 0.00-0.045 ng/ml Risk Stratification: <= 0.10 ng/ml Decreased Risk for Adverse Clinical Events. 0.10-1.50 ng/ml Increased Risk for Adverse Clinical Events. Evaluation of additional criterion and/or repeat testing in 2-6 hours is suggested to rule out myocardial damage. >= 1.50 ng/ml Indicative of Myocardial Injury. Lab Order: -Influenza A&B Rapid Antigen - Nose; SPEC'M 04/23/16 00:26 Test: INFLUENZA A RAPID SCR by ICA; Value: INFLUENZA A RESULTS NEGATIVE; Status: F Test: INFLUENZA A RAPID SCR by ICA; Value: Comments:; Status: F Test: INFLUENZA B RAPID SCR by ICA; Value: INFLUENZA B RESULTS NEGATIVE; Status: F Test Note: ; The Influenza test is a direct rapid immunoassay for the qualitative detection of Influenza viral antigen. Cell culture (Viral Culture) testing should be considered to confirm NEGATIVE results and to assist in detecting other viruses that can provide similar clinical symptoms. Please contact the lab within 24 hours ([phone] if confirmatory testing is desired. Radiology Order: EKG-ADULT Test: EKG-ADULT REASON FOR EXAMINATION: Chest Pain; Stationary ECG Study; 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 Innumerable calcified hilar and; mediastinal lymph nodes are again identified. Pacemaker. Lung dejesus are clear; without acute consolidation, effusion or pneumothorax.; ; Impression:; Chronic stable changes. No acute cardiopulmonary process.; ; ; Signed by; Travis Shepherd MD 04/23/2016 08:00 A; Radiology Order: CT Chest Angio R/O PE Test: CT Chest Angio R/O PE REASON FOR EXAMINATION: Chest Pain;Shortness of Breath; ; CLINICAL HISTORY: Dyspnea, exclude PE.; TECHNIQUE: Multiple incremental axial, coronal and oblique images are obtained from the thoracic inle; t to the upper abdomen. Intravenous contrast material was administered as per pulmonary embolism prot; ocol.; COMMENTS:; Comparison is made to the prior exam on 05/01/2015.; Calcified mediastinal and hilar lymph nodes. The largest measures 1.5 cm.; Bilateral paramediastinal pulmonary interstitial thickening and scarring. Mild bilateral basilar subp; leural interstitial chronic pulmonary thickening.; Enlarged pulmonary arteries.; There is excellent opacification of pulmonary arterial system without evidence for pulmonary embolism; . Aorta is of normal caliber without evidence for dissection or aneurysm. Pacemaker lies in good posi; tion.; There is no evidence of pleural or parenchymal mass. There are no pleural effusions. There is no evid; ence of hilar or mediastinal lymphadenopathy. The heart and great vessels are within normal limits.; Images of the upper abdomen demonstrate no evidence of adrenal mass.; The bony structures are free of lytic or blastic lesions. Multilevel degenerative changes are seen in; volving the visualized thoracolumbar spine.; Scattered calcifications are seen involving the aorta and major branches compatible with atherosclero; sis.; Moderate large bowel fecal stasis.; IMPRESSION:; No evidence for pulmonary embolism.; Diffuse bilateral interstitial pulmonary thickening representing a chronic, unchanged finding.; Suspected pulmonary hypertension.; Cardiomegaly.; Thank you for your kind referral of this patient.; ; Outcome: 02:13 Discharge ordered by Provider. fg 02:35 Discharge ordered by Provider. fg 03:22 Discharge Assessment: Patient awake, alert and oriented x 3. No cognitive and/or cf2 functional deficits noted. Patient verbalized understanding of disposition instructions. Patient awake and alert. Oriented to person, place and time. patient administered narcotics - yes. Pt provided with safe discharge. The following High Risk Discharge criteria are identified: None. Discharged to home ambulatory. Condition: good. Discharge instructions given to patient, Instructed on discharge instructions, follow up and referral plans. Demonstrated understanding of instructions, Pt was receptive of discharge instructions/ teaching. CT Study completed. Property :Personal belongings accompany Pt. 03:23 Patient left the ED. cf2 Signatures: Dispatcher Med[employer] EDMS Donato Valera, RN RN cz Carlene Bauer jp5 Ann Rangel MD MD Vania Klein, Reg Reg hs2 Hannah Griffith Christina,RN RN cf2 Mike Savage, CAN STERILIZER CAN STERILIZER Suzy Subramanian,RN RN tm5 Corrections: (The following items were deleted from the chart) 02:59 02:57 General: Appears in no apparent distress, comfortable, Behavior is appropriate cf2 for age, cooperative, cf2 Chart Complete MTDD
--- NOTE | 2016-04-25 20:24 | EDDOCDS ---
Physician Documentation [facility] Name: Phill Corey Age: 66 yrs Sex: Male : 1950 Arrival Date: 04/23/2016 Time: 00:01 Bed D1 Private MD: Disposition: 04/23/16 02:35 Discharged to Home/Self Care. Impression: Chest pain, unspecified. - Condition is Stable. - Discharge Instructions: Nonspecific Chest Pain. - Medication Reconciliation, Local Pharmacy Hours form. - Follow up: Truong Arambula MD; When: Tomorrow; Reason: Continuance of care. - Problem is an ongoing problem. - Symptoms are unchanged. Historical: - Allergies: Polysporin; - Home Meds: 1. aspirin 325 mg Oral tab 1 tab once daily 2. lisinopril 20 mg Oral tab 1 tab once daily 3. Nexium 40 mg Oral cpDR 1 cap 2 times per day 4. atorvastatin 20 mg oral tab 1 tab once daily - PMHx: Hiatal Hernia; Hodgkin's Lymphoma; Hypercholesterolemia; Hypertension; - PSHx: Pacemaker Insertion; spleenectomy; - Social history: Smoking status: Patient states was never smoker of tobacco. No barriers to communication noted, The patient speaks fluent Urdu. - Family history: Not pertinent. - : The pt / caregiver states he / she is not on anticoagulants. Home medication list is obtained from the patient. - Exposure Risk Screening:: None identified. Vital Signs: 04/23 00:12 Pulse 89; Resp 20 S; Temp 98.3(O); Pulse Ox 100% on R/A; Weight 79.38 kg / 175 lbs; tm5 Height 5 ft. 8 in. (172.72 cm); Pain 03/10; 00:18 BP 153 / 87; tm5 01:17 BP 134 / 64 (auto/); cf2 01:17 Pulse 90 MON; Pulse Ox 93% ; cf2 01:17 BP 122 / 71; cf2 01:23 Pulse 90 MON; Pulse Ox 93% ; cf2 01:33 Pulse 88 MON; Pulse Ox 94% ; cf2 01:49 Pulse 94 MON; Pulse Ox 95% ; cf2 01:55 Pulse 88 MON; Pulse Ox 93% ; cf2 02:02 Pulse 86 MON; Pulse Ox 95% ; cf2 02:12 Pulse 86 MON; Pulse Ox 93% ; cf2 02:19 Pulse 86 MON; Pulse Ox 93% ; cf2 02:27 Pulse 82 MON; Pulse Ox 94% ; cf2 02:34 Pulse 88 MON; Pulse Ox 95% ; cf2 02:41 Pulse 82 MON; Pulse Ox 93% ; cf2 02:45 Pulse 80 MON; Pulse Ox 93% ; cf2 00:12 Body Mass Index 26.61 (79.38 kg, 172.72 cm) tm5 MDM: 00:05 ECG WITH READING ER PHYS+CARDIAG ordered. EDMS 00:06 Nurse Supervisor/Pulse Ox/q 15 min VS ordered. fg 00:06 IV Saline Lock ordered. fg 00:06 Oxygen at 4L/Min NC or Home dosage ordered. fg 00:06 Rhythm Strip to chart ordered. fg 00:06 Aspirin 324 mg PO once ordered. fg 00:07 -Blood Culture Ordered. EDMS 00:07 B-Type Natiuretic Peptide Ordered. EDMS 00:07 Basic Metabolic Profile Ordered. EDMS 00:07 CBC with Diff Ordered. EDMS 00:07 Cardiac Injury Profile Ordered. EDMS 00:07 Troponin Ordered. EDMS 00:09 Chest, 1 View Ordered. EDMS 00:28 CT Chest Angio R/O PE Ordered. EDMS 00:51 Obtain sample by nasal aspiration ordered. fg 00:52 -Influenza A&B Rapid Antigen - Nose Ordered. EDMS 01:14 Financial registration complete. hs2 01:25 oxyCODONE-acetaminophen 5 mg-325 mg 1 tabs PO once ordered. fg 01:43 [facility] [place] Payment Agreement was scanned into [employer] and attached to record. hs2 21:21 T-Sheet-- Draft Copy was scanned into [employer] and attached to record. klr Administered Medications: 00:20 Drug: Aspirin 324 mg [aspirin 81 mg chewable tablet (4 tabs)] Route: PO; cf2 01:30 Drug: oxyCODONE-acetaminophen 1 tabs [oxycodone-acetaminophen 5 mg-325 mg tablet (1 cf2 tabs)] Route: PO; Signatures: Dispatcher [employer] EDMS Ann Rangel MD MD fg Vania Klein, Reg Reg hs2 Hannah Griffith klCriss Marshall RN RN cf2 Suzy Bailey RN RN tm5 The chart was reviewed and I authenticate all verbal orders and agree with the evaluation and treatment provided.Attachments: 01:43 [facility] Payment Agreement hs2 21:21 T-Sheet-- Draft Copy klr Chart Complete MTDD
--- NOTE | 2016-04-25 20:24 | EDDOCDS ---
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 Aspirin was not taken prior to arrival. Adult Sepsis Screening: The patient does not have new or worsening altered mentation. Patient's respiratory rate is less than 22. Systolic blood pressure is greater than 100. Patient has a qSOFA score of 0- Negative Sepsis Screen. Suicide/Homicide risk assessment- the patient denies having any suicidal and/or homicidal ideations and does not present with any other emotional, behavioral or mental health complaints. 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 Transition of care: patient was not received from another setting of care. 00:06 Acuity: KAREN Level 3 tm5 00:06 Method Of Arrival: Walkin/Carried/Asstd tm5 Triage Assessment: 00:12 General: Appears in no apparent distress, Behavior is appropriate for age, cooperative. tm5 Pain: Location: mid-sternal area Pain currently is 1 out of 10 on a pain scale. Quality of pain is described as aching. Pt Declines HIV testing. The patient is triaged at the bedside. See Assessment in Nurses Notes section of ED record. Neurological: Level of Consciousness is awake, alert, Oriented to person, place, time. Cardiovascular: Chest pain is described as vague, radiates Does not radiate. episodes past 2 days began 2 days. Respiratory: Airway is patent Respiratory effort is even, unlabored, Respiratory pattern is regular, symmetrical. Derm: Skin is pink, warm & dry. Historical: - Allergies: Polysporin; - Home Meds: 1. aspirin 325 mg Oral tab 1 tab once daily 2. lisinopril 20 mg Oral tab 1 tab once daily 3. Nexium 40 mg Oral cpDR 1 cap 2 times per day 4. atorvastatin 20 mg oral tab 1 tab once daily - PMHx: Hiatal Hernia; Hodgkin's Lymphoma; Hypercholesterolemia; Hypertension; - PSHx: Pacemaker Insertion; spleenectomy; - Social history: Smoking status: Patient states was never smoker of tobacco. No barriers to communication noted, The patient speaks fluent Somali. - Family history: Not pertinent. - : The pt / caregiver states he / she is not on anticoagulants. Home medication list is obtained from the patient. - Exposure Risk Screening:: None identified. Screenin:16 Screening information is obtained from the patient. Fall risk: No risks identified. tm5 Assistance ADL's: requires no assistance with activities of daily living. Abuse/DV Screen: The patient / caregiver reports he/she is: not in a situation that causes fear, pain or injury. Nutritional screening: No deficits noted. Advance Directives: Currently, there is no health care proxy. There is no active DNR order. home support is adequate. Assessment: 00:30 General: Appears in no apparent distress, comfortable, Behavior is appropriate for age, cf2 cooperative. 02:57 Cardiovascular: Rhythm is ventricular pacer Chest pain is denied Reports cough cold cf2 symptoms. Vital Signs: 00:12 Pulse 89; Resp 20 S; Temp 98.3(O); Pulse Ox 100% on R/A; Weight 79.38 kg; Height 5 ft. tm5 8 in. (172.72 cm); Pain 1/10; 00:18 BP 153 / 87; tm5 01:17 BP 134 / 64 (auto/); cf2 01:17 Pulse 90 MON; Pulse Ox 93% ; cf2 01:17 BP 122 / 71; cf2 01:23 Pulse 90 MON; Pulse Ox 93% ; cf2 01:33 Pulse 88 MON; Pulse Ox 94% ; cf2 01:49 Pulse 94 MON; Pulse Ox 95% ; cf2 01:55 Pulse 88 MON; Pulse Ox 93% ; cf2 02:02 Pulse 86 MON; Pulse Ox 95% ; cf2 02:12 Pulse 86 MON; Pulse Ox 93% ; cf2 02:19 Pulse 86 MON; Pulse Ox 93% ; cf2 02:27 Pulse 82 MON; Pulse Ox 94% ; cf2 02:34 Pulse 88 MON; Pulse Ox 95% ; cf2 02:41 Pulse 82 MON; Pulse Ox 93% ; cf2 02:45 Pulse 80 MON; Pulse Ox 93% ; cf2 00:12 Body Mass Index 26.61 (79.38 kg, 172.72 cm) tm5 Vitals: 00:12 Log In Time: April 23, 2016 at 00:14. tm5 ED Course: 00:02 Patient visited by Carlene Bauer. jp5 00:02 Patient moved to Waiting jp5 00:05 Patient visited by Suzy Bailey,JIA. tm5 00:05 Patient moved to 11 cz 00:07 Triage Initiated tm5 00:09 Ann Rangel MD is Attending Physician. fg 00:09 Patient visited by Ann Rangel MD. fg 00:11 Criss Jenkins,JIA is Primary Nurse. cf2 00:11 Patient visited by Criss Jenkins RN. cf2 00:12 Family accompanied patient. tm5 00:22 Patient visited by Criss Jenkins RN. cf2 00:24 Pt greeted and oriented to ED. Patient advised of names of staff involved in care, jmv location of call mata, wait times and NPO status. Accompanied by Significant Other, Patient has correct armband on for positive identification. Placed in gown. Bed in low position. Call light in reach. Side rails up X2. monitoring specialist on. Pulse ox on. NIBP on. 00:24 EKG done. (by ED staff). Reviewed by Ann Rangel MD. jmv 00:25 Patient visited by Mike Savage PCA. jmv 00:45 Troponin Sent. cf2 00:56 Patient visited by Criss Jenkins RN. cf2 00:57 -Influenza A&B Rapid Antigen - Nose Sent. cf2 00:57 -Blood Culture Sent. cf2 00:57 B-Type Natiuretic Peptide Sent. cf2 00:57 Basic Metabolic Profile Sent. cf2 00:57 CBC with Diff Sent. cf2 00:57 Cardiac Injury Profile Sent. cf2 01:09 Patient visited by Criss Jenkins RN. cf2 01:43 [facility] Payment Agreement was scanned into [employer] and attached to record. hs2 01:52 Patient visited by Criss Jenkins RN. cf2 02:35 Truong Arambula MD is Referral Physician. fg 02:53 CT Chest Angio R/O PE Returned. EDMS 02:57 Patient visited by Criss Jenkins RN. cf2 03:13 Patient moved to D1 cz 03:23 The patient / caregiver is instructed regarding the plan of care and ED course. cf2 03:23 Discontinued lock. No procedures done that require assistance. cf2 08:33 Chest, 1 View Returned. EDMS 21:21 T-Sheet-- Draft Copy was scanned into [employer] and attached to record. [facility] 04/24 15:14 EKG-ADULT Returned. EDMS Administered Medications: 04/23 00:20 Drug: Aspirin 324 mg [aspirin 81 mg chewable tablet (4 tabs)] Route: PO; cf2 01:30 Drug: oxyCODONE-acetaminophen 1 tabs [oxycodone-acetaminophen 5 mg-325 mg tablet (1 cf2 tabs)] Route: PO; Order Results: Lab Order: -Blood Culture; SPEC'M 04/23/16 00:26 Test: BLOOD CULTURE; Value: No growth after 24 hours . All specimens observed; Status: F Test: BLOOD CULTURE; Value: for 5 days. Results final at that time.; Status: F Test: BLOOD CULTURE; Value: No Growth after 48 hours. All Specimens observed; Status: F Test: BLOOD CULTURE; Value: for 7 days. Results final at that time.; Status: F Lab Order: B-Type Natiuretic Peptide; SPEC'M 04/23/16 00:26 Test: BRAIN NATRIURETIC PEPTIDE; Value: 161; Range: <100; Abnormal: Above high normal; Units: PG/ML; Status: F Lab Order: Basic Metabolic Profile; SPEC'M 04/23/16 00:26 Test: GLUCOSE, FASTING; Value: 123; Range: 80-110; Abnormal: Above high normal; Units: MG/DL; Status: F Test: BLOOD UREA NITROGEN; Value: 20; Range: 7-18; Abnormal: Above high normal; Units: MG/DL; Status: F Test: CREATININE FOR GFR; Value: 1.00; Range: 0.70-1.30; Units: MG/DL; Status: F Test: GLOMERULAR FILTRATION RATE; Value: > 60.0; Range: >49; Status: F Test: SODIUM LEVEL; Value: 147; Range: 136-145; Abnormal: Above high normal; Units: MEQ/L; Status: F Test: POTASSIUM SERUM; Value: 3.8; Range: 3.5-5.1; Units: MEQ/L; Status: F Test: CHLORIDE LEVEL; Value: 112; Range: 98-107; Abnormal: Above high normal; Units: MEQ/L; Status: F Test: CARBON DIOXIDE LEVEL; Value: 28; Range: 21-32; Units: MEQ/L; Status: F Test: ANION GAP; Value: 7; Range: 8-16; Abnormal: Below low normal; Units: MEQ/L; Status: F Test: CALCIUM LEVEL; Value: 8.3; Range: 8.8-10.2; Abnormal: Below low normal; Units: MG/DL; Status: F Test Note: ; Units are mL/min/1.73 m2 Chronic Kidney Disease Staging per NKF: Stage I & II GFR >=60 Normal to Mildly Decreased Stage III GFR 30-59 Moderately Decreased Stage IV GFR 15-29 Severely Decreased Stage V GFR <15 Very Little GFR Left ESRD GFR <15 on WORKFORCE DEVELOPMENT SPECIALIST Lab Order: CBC with Diff; SPEC'M 04/23/16 00:26 Test: WHITE BLOOD COUNT; Value: 8.7; Range: 4.0-10.0; Units: K/mm3; Status: F Test: RED BLOOD COUNT; Value: 4.37; Range: 4.30-6.10; Units: M/mm3; Status: F Test: HEMOGLOBIN; Value: 13.5; Range: 14.0-18.0; Abnormal: Below low normal; Units: g/dl; Status: F Test: HEMATOCRIT; Value: 40.3; Range: 42.0-52.0; Abnormal: Below low normal; Units: %; Status: F Test: MEAN CORPUSCULAR VOLUME; Value: 92.4; Range: 80.0-96.0; Units: fl; Status: F Test: MEAN CORPUSCULAR HEMOGLOBIN; Value: 30.8; Range: 27.0-33.0; Units: pg; Status: F Test: MEAN CORPUSCULAR HGB CONC; Value: 33.4; Range: 32.0-36.5; Units: g/dl; Status: F Test: RED CELL DISTRIBUTION WIDTH; Value: 13.7; Range: 11.5-14.5; Units: %; Status: F Test: PLATELET COUNT, AUTOMATED; Value: 351; Range: 150-450; Units: k/mm3; Status: F Test: NEUTROPHILS %; Value: 55.7; Range: 36.0-66.0; Units: %; Status: F Test: LYMPH %; Value: 20.1; Range: 24.0-44.0; Abnormal: Below low normal; Units: %; Status: F Test: MONO %; Value: 10.2; Range: 0.0-5.0; Abnormal: Above high normal; Units: %; Status: F Test: EOS %; Value: 8.1; Range: 0.0-3.0; Abnormal: Above high normal; Units: %; Status: F Test: BASO %; Value: 0.7; Range: 0.0-1.0; Units: %; Status: F Test: LARGE UNSTAINED CELL %; Value: 5.2; Range: 0.0-4.0; Abnormal: Above high normal; Units: %; Status: F Test: NEUTROPHILS #; Value: 4.8; Range: 1.8-7.7; Units: K/mm3; Status: F Test: LYMPH #; Value: 1.7; Range: 1.5-4.5; Units: K/mm3; Status: F Test: MONO #; Value: 0.9; Range: 0.0-0.8; Abnormal: Above high normal; Units: K/mm3; Status: F Test: EOS #; Value: 0.7; Range: 0.0-0.50; Abnormal: Above high normal; Units: K/mm3; Status: F Test: BASO #; Value: 0.1; Range: 0.0-0.2; Units: K/mm3; Status: F Test: LARGE UNSTAINED CELL #; Value: 0.5; Range: 0.0-0.4; Abnormal: Above high normal; Units: K/mm3; Status: F Lab Order: Cardiac Injury Profile; SPEC'M 04/23/16 00:26 Test: CPK CREATINE PHOSPHOKINASE; Value: 223; Range: 39-308; Units: U/L; Status: F Test: CK-MB VALUE MASS; Value: 3.7; Range: 0.0-3.6; Abnormal: Above high normal; Units: NG/ML; Status: F Test: MB/CK RELATIVE INDEX; Value: 1.65; Range: < OR =4; Status: F Test Note: ; DIAGNOSIS CRITERIA MMB ng/ml Relative Index (RI) NON-AMI < or = 5 N/A ARANA ZONE > 5 < or = 4 AMI > 5 > 4 Lab Order: Troponin; SPEC'M 04/23/16 00:26 Test: TROPONIN I; Value: 0.05; Range: < 0.10; Units: NG/ML; Status: F Test Note: ; Troponin I Reference Interval for Siemens Nugg-it LOCI: 99th Percentile= 0.00-0.045 ng/ml Risk Stratification: <= 0.10 ng/ml Decreased Risk for Adverse Clinical Events. 0.10-1.50 ng/ml Increased Risk for Adverse Clinical Events. Evaluation of additional criterion and/or repeat testing in 2-6 hours is suggested to rule out myocardial damage. >= 1.50 ng/ml Indicative of Myocardial Injury. Lab Order: -Influenza A&B Rapid Antigen - Nose; SPEC'M 04/23/16 00:26 Test: INFLUENZA A RAPID SCR by ICA; Value: INFLUENZA A RESULTS NEGATIVE; Status: F Test: INFLUENZA A RAPID SCR by ICA; Value: Comments:; Status: F Test: INFLUENZA B RAPID SCR by ICA; Value: INFLUENZA B RESULTS NEGATIVE; Status: F Test Note: ; The Influenza test is a direct rapid immunoassay for the qualitative detection of Influenza viral antigen. Cell culture (Viral Culture) testing should be considered to confirm NEGATIVE results and to assist in detecting other viruses that can provide similar clinical symptoms. Please contact the lab within 24 hours ([phone]) if confirmatory testing is desired. 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 Innumerable calcified hilar and; mediastinal lymph nodes are again identified. Pacemaker. Lung dejesus are clear; without acute consolidation, effusion or pneumothorax.; ; Impression:; Chronic stable changes. No acute cardiopulmonary process.; ; ; Signed by; Travis Shepherd MD 04/23/2016 08:00 A; Radiology Order: CT Chest Angio R/O PE Test: CT Chest Angio R/O PE REASON FOR EXAMINATION: Chest Pain;Shortness of Breath; ; CLINICAL HISTORY: Dyspnea, exclude PE.; TECHNIQUE: Multiple incremental axial, coronal and oblique images are obtained from the thoracic inle; t to the upper abdomen. Intravenous contrast material was administered as per pulmonary embolism prot; ocol.; COMMENTS:; Comparison is made to the prior exam on 05/01/2015.; Calcified mediastinal and hilar lymph nodes. The largest measures 1.5 cm.; Bilateral paramediastinal pulmonary interstitial thickening and scarring. Mild bilateral basilar subp; leural interstitial chronic pulmonary thickening.; Enlarged pulmonary arteries.; There is excellent opacification of pulmonary arterial system without evidence for pulmonary embolism; . Aorta is of normal caliber without evidence for dissection or aneurysm. Pacemaker lies in good posi; tion.; There is no evidence of pleural or parenchymal mass. There are no pleural effusions. There is no evid; ence of hilar or mediastinal lymphadenopathy. The heart and great vessels are within normal limits.; Images of the upper abdomen demonstrate no evidence of adrenal mass.; The bony structures are free of lytic or blastic lesions. Multilevel degenerative changes are seen in; volving the visualized thoracolumbar spine.; Scattered calcifications are seen involving the aorta and major branches compatible with atherosclero; sis.; Moderate large bowel fecal stasis.; IMPRESSION:; No evidence for pulmonary embolism.; Diffuse bilateral interstitial pulmonary thickening representing a chronic, unchanged finding.; Suspected pulmonary hypertension.; Cardiomegaly.; Thank you for your kind referral of this patient.; ; Outcome: 02:13 Discharge ordered by Provider. fg 02:35 Discharge ordered by Provider. fg 03:22 Discharge Assessment: Patient awake, alert and oriented x 3. No cognitive and/or cf2 functional deficits noted. Patient verbalized understanding of disposition instructions. Patient awake and alert. Oriented to person, place and time. patient administered narcotics - yes. Pt provided with safe discharge. The following High Risk Discharge criteria are identified: None. Discharged to home ambulatory. Condition: good. Discharge instructions given to patient, Instructed on discharge instructions, follow up and referral plans. Demonstrated understanding of instructions, Pt was receptive of discharge instructions/ teaching. CT Study completed. Property :Personal belongings accompany Pt. 03:23 Patient left the ED. cf2 Signatures: Dispatcher [employer] EDMS Donato Valera, RN RN cz Carlene Bauer jp5 Ann Rangel MD MD Vania Klein, Reg Reg hs2 Hannah Griffith Christina,RN RN cf2 Mike Savage, RECYCLING MANAGER RECYCLING MANAGER Suzy Subramanian,RN RN tm5 Corrections: (The following items were deleted from the chart) 02:59 02:57 General: Appears in no apparent distress, comfortable, Behavior is appropriate cf2 for age, cooperative, cf2 Chart Complete MTDD
--- NOTE | 2016-04-25 20:24 | EDDOCDS ---
Physician Documentation [facility] Name: Phill Corey Age: 66 yrs Sex: Male : 1950 Arrival Date: 04/23/2016 Time: 00:01 Bed D1 Private MD: Disposition: 04/23/16 02:35 Discharged to Home/Self Care. Impression: Chest pain, unspecified. - Condition is Stable. - Discharge Instructions: Nonspecific Chest Pain. - Medication Reconciliation, Local Pharmacy Hours form. - Follow up: Truong Arambula MD; When: Tomorrow; Reason: Continuance of care. - Problem is an ongoing problem. - Symptoms are unchanged. Historical: - Allergies: Polysporin; - Home Meds: 1. aspirin 325 mg Oral tab 1 tab once daily 2. lisinopril 20 mg Oral tab 1 tab once daily 3. Nexium 40 mg Oral cpDR 1 cap 2 times per day 4. atorvastatin 20 mg oral tab 1 tab once daily - PMHx: Hiatal Hernia; Hodgkin's Lymphoma; Hypercholesterolemia; Hypertension; - PSHx: Pacemaker Insertion; spleenectomy; - Social history: Smoking status: Patient states was never smoker of tobacco. No barriers to communication noted, The patient speaks fluent Chinese. - Family history: Not pertinent. - : The pt / caregiver states he / she is not on anticoagulants. Home medication list is obtained from the patient. - Exposure Risk Screening:: None identified. Vital Signs: 04/23 00:12 Pulse 89; Resp 20 S; Temp 98.3(O); Pulse Ox 100% on R/A; Weight 79.38 kg / 175 lbs; tm5 Height 5 ft. 8 in. (172.72 cm); Pain 03/10; 00:18 BP 153 / 87; tm5 01:17 BP 134 / 64 (auto/); cf2 01:17 Pulse 90 MON; Pulse Ox 93% ; cf2 01:17 BP 122 / 71; cf2 01:23 Pulse 90 MON; Pulse Ox 93% ; cf2 01:33 Pulse 88 MON; Pulse Ox 94% ; cf2 01:49 Pulse 94 MON; Pulse Ox 95% ; cf2 01:55 Pulse 88 MON; Pulse Ox 93% ; cf2 02:02 Pulse 86 MON; Pulse Ox 95% ; cf2 02:12 Pulse 86 MON; Pulse Ox 93% ; cf2 02:19 Pulse 86 MON; Pulse Ox 93% ; cf2 02:27 Pulse 82 MON; Pulse Ox 94% ; cf2 02:34 Pulse 88 MON; Pulse Ox 95% ; cf2 02:41 Pulse 82 MON; Pulse Ox 93% ; cf2 02:45 Pulse 80 MON; Pulse Ox 93% ; cf2 00:12 Body Mass Index 26.61 (79.38 kg, 172.72 cm) tm5 MDM: 00:05 ECG WITH READING ER PHYS+CARDIAG ordered. EDMS 00:06 Compress Engineer/Pulse Ox/q 15 min VS ordered. fg 00:06 IV Saline Lock ordered. fg 00:06 Oxygen at 4L/Min NC or Home dosage ordered. fg 00:06 Rhythm Strip to chart ordered. fg 00:06 Aspirin 324 mg PO once ordered. fg 00:07 -Blood Culture Ordered. EDMS 00:07 B-Type Natiuretic Peptide Ordered. EDMS 00:07 Basic Metabolic Profile Ordered. EDMS 00:07 CBC with Diff Ordered. EDMS 00:07 Cardiac Injury Profile Ordered. EDMS 00:07 Troponin Ordered. EDMS 00:09 Chest, 1 View Ordered. EDMS 00:28 CT Chest Angio R/O PE Ordered. EDMS 00:51 Obtain sample by nasal aspiration ordered. fg 00:52 -Influenza A&B Rapid Antigen - Nose Ordered. EDMS 01:14 Financial registration complete. hs2 01:25 oxyCODONE-acetaminophen 5 mg-325 mg 1 tabs PO once ordered. fg 01:43 [facility] [place] [facility] Payment Agreement was scanned into [employer] and attached to record. hs2 21:21 T-Sheet-- Draft Copy was scanned into [employer] and attached to record. klr Administered Medications: 00:20 Drug: Aspirin 324 mg [aspirin 81 mg chewable tablet (4 tabs)] Route: PO; cf2 01:30 Drug: oxyCODONE-acetaminophen 1 tabs [oxycodone-acetaminophen 5 mg-325 mg tablet (1 cf2 tabs)] Route: PO; Signatures: Dispatcher [employer] EDMS Ann Rangel MD MD fg Vania Klein, Reg Reg hs2 Hannah Griffith klCriss Marshall RN RN cf2 Suzy Bailey RN RN tm5 The chart was reviewed and I authenticate all verbal orders and agree with the evaluation and treatment provided.Attachments: 01:43 [facility] Payment Agreement hs2 21:21 T-Sheet-- Draft Copy klr Chart Complete MTDD
--- NOTE | 2016-04-25 20:26 | EDDOCDS ---
Nurse's Notes 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 Aspirin was not taken prior to arrival. Adult Sepsis Screening: The patient does not have new or worsening altered mentation. Patient's respiratory rate is less than 22. Systolic blood pressure is greater than 100. Patient has a qSOFA score of 0- Negative Sepsis Screen. Suicide/Homicide risk assessment- the patient denies having any suicidal and/or homicidal ideations and does not present with any other emotional, behavioral or mental health complaints. 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 Transition of care: patient was not received from another setting of care. 00:06 Acuity: KAREN Level 3 tm5 00:06 Method Of Arrival: Walkin/Carried/Asstd tm5 Triage Assessment: 00:12 General: Appears in no apparent distress, Behavior is appropriate for age, cooperative. tm5 Pain: Location: mid-sternal area Pain currently is 1 out of 10 on a pain scale. Quality of pain is described as aching. Pt Declines HIV testing. The patient is triaged at the bedside. See Assessment in Nurses Notes section of ED record. Neurological: Level of Consciousness is awake, alert, Oriented to person, place, time. Cardiovascular: Chest pain is described as vague, radiates Does not radiate. episodes past 2 days began 2 days. Respiratory: Airway is patent Respiratory effort is even, unlabored, Respiratory pattern is regular, symmetrical. Derm: Skin is pink, warm & dry. Historical: - Allergies: Polysporin; - Home Meds: 1. aspirin 325 mg Oral tab 1 tab once daily 2. lisinopril 20 mg Oral tab 1 tab once daily 3. Nexium 40 mg Oral cpDR 1 cap 2 times per day 4. atorvastatin 20 mg oral tab 1 tab once daily - PMHx: Hiatal Hernia; Hodgkin's Lymphoma; Hypercholesterolemia; Hypertension; - PSHx: Pacemaker Insertion; spleenectomy; - Social history: Smoking status: Patient states was never smoker of tobacco. No barriers to communication noted, The patient speaks fluent Burkinan. - Family history: Not pertinent. - : The pt / caregiver states he / she is not on anticoagulants. Home medication list is obtained from the patient. - Exposure Risk Screening:: None identified. Screenin:16 Screening information is obtained from the patient. Fall risk: No risks identified. tm5 Assistance ADL's: requires no assistance with activities of daily living. Abuse/DV Screen: The patient / caregiver reports he/she is: not in a situation that causes fear, pain or injury. Nutritional screening: No deficits noted. Advance Directives: Currently, there is no health care proxy. There is no active DNR order. home support is adequate. Assessment: 00:30 General: Appears in no apparent distress, comfortable, Behavior is appropriate for age, cf2 cooperative. 02:57 Cardiovascular: Rhythm is ventricular pacer Chest pain is denied Reports cough cold cf2 symptoms. Vital Signs: 00:12 Pulse 89; Resp 20 S; Temp 98.3(O); Pulse Ox 100% on R/A; Weight 79.38 kg; Height 5 ft. tm5 8 in. (172.72 cm); Pain 1/10; 00:18 BP 153 / 87; tm5 01:17 BP 134 / 64 (auto/); cf2 01:17 Pulse 90 MON; Pulse Ox 93% ; cf2 01:17 BP 122 / 71; cf2 01:23 Pulse 90 MON; Pulse Ox 93% ; cf2 01:33 Pulse 88 MON; Pulse Ox 94% ; cf2 01:49 Pulse 94 MON; Pulse Ox 95% ; cf2 01:55 Pulse 88 MON; Pulse Ox 93% ; cf2 02:02 Pulse 86 MON; Pulse Ox 95% ; cf2 02:12 Pulse 86 MON; Pulse Ox 93% ; cf2 02:19 Pulse 86 MON; Pulse Ox 93% ; cf2 02:27 Pulse 82 MON; Pulse Ox 94% ; cf2 02:34 Pulse 88 MON; Pulse Ox 95% ; cf2 02:41 Pulse 82 MON; Pulse Ox 93% ; cf2 02:45 Pulse 80 MON; Pulse Ox 93% ; cf2 00:12 Body Mass Index 26.61 (79.38 kg, 172.72 cm) tm5 Vitals: 00:12 Log In Time: April 23, 2016 at 00:14. tm5 ED Course: 00:02 Patient visited by Carlene Bauer. jp5 00:02 Patient moved to Waiting jp5 00:05 Patient visited by Suzy Bailey,JIA. tm5 00:05 Patient moved to 11 cz 00:07 Triage Initiated tm5 00:09 Ann Rangel MD is Attending Physician. fg 00:09 Patient visited by Ann Rangel MD. fg 00:11 Criss Jenkins,JIA is Primary Nurse. cf2 00:11 Patient visited by Criss Jenkins RN. cf2 00:12 Family accompanied patient. tm5 00:22 Patient visited by Criss Jenkins RN. cf2 00:24 Pt greeted and oriented to ED. Patient advised of names of staff involved in care, jmv location of call mata, wait times and NPO status. Accompanied by Significant Other, Patient has correct armband on for positive identification. Placed in gown. Bed in low position. Call light in reach. Side rails up X2. broadcast meteorologist on. Pulse ox on. NIBP on. 00:24 EKG done. (by ED staff). Reviewed by Ann Rangel MD. jmv 00:25 Patient visited by Mike Savage PCA. jmv 00:45 Troponin Sent. cf2 00:56 Patient visited by Criss Jenkins RN. cf2 00:57 -Influenza A&B Rapid Antigen - Nose Sent. cf2 00:57 -Blood Culture Sent. cf2 00:57 B-Type Natiuretic Peptide Sent. cf2 00:57 Basic Metabolic Profile Sent. cf2 00:57 CBC with Diff Sent. cf2 00:57 Cardiac Injury Profile Sent. cf2 01:09 Patient visited by Criss Jenkins RN. cf2 01:43 [facility] Payment Agreement was scanned into [employer] and attached to record. hs2 01:52 Patient visited by Criss Jenkins RN. cf2 02:35 Truong Arambula MD is Referral Physician. fg 02:53 CT Chest Angio R/O PE Returned. EDMS 02:57 Patient visited by Criss Jenkins RN. cf2 03:13 Patient moved to D1 cz 03:23 The patient / caregiver is instructed regarding the plan of care and ED course. cf2 03:23 Discontinued lock. No procedures done that require assistance. cf2 08:33 Chest, 1 View Returned. EDMS 21:21 T-Sheet-- Draft Copy was scanned into [employer] and attached to record. [facility] 04/24 15:14 EKG-ADULT Returned. EDMS Administered Medications: 04/23 00:20 Drug: Aspirin 324 mg [aspirin 81 mg chewable tablet (4 tabs)] Route: PO; cf2 01:30 Drug: oxyCODONE-acetaminophen 1 tabs [oxycodone-acetaminophen 5 mg-325 mg tablet (1 cf2 tabs)] Route: PO; Order Results: Lab Order: -Blood Culture; SPEC'M 04/23/16 00:26 Test: BLOOD CULTURE; Value: No growth after 24 hours . All specimens observed; Status: F Test: BLOOD CULTURE; Value: for 5 days. Results final at that time.; Status: F Test: BLOOD CULTURE; Value: No Growth after 48 hours. All Specimens observed; Status: F Test: BLOOD CULTURE; Value: for 7 days. Results final at that time.; Status: F Lab Order: B-Type Natiuretic Peptide; SPEC'M 04/23/16 00:26 Test: BRAIN NATRIURETIC PEPTIDE; Value: 161; Range: <100; Abnormal: Above high normal; Units: PG/ML; Status: F Lab Order: Basic Metabolic Profile; SPEC'M 04/23/16 00:26 Test: GLUCOSE, FASTING; Value: 123; Range: 80-110; Abnormal: Above high normal; Units: MG/DL; Status: F Test: BLOOD UREA NITROGEN; Value: 20; Range: 7-18; Abnormal: Above high normal; Units: MG/DL; Status: F Test: CREATININE FOR GFR; Value: 1.00; Range: 0.70-1.30; Units: MG/DL; Status: F Test: GLOMERULAR FILTRATION RATE; Value: > 60.0; Range: >49; Status: F Test: SODIUM LEVEL; Value: 147; Range: 136-145; Abnormal: Above high normal; Units: MEQ/L; Status: F Test: POTASSIUM SERUM; Value: 3.8; Range: 3.5-5.1; Units: MEQ/L; Status: F Test: CHLORIDE LEVEL; Value: 112; Range: 98-107; Abnormal: Above high normal; Units: MEQ/L; Status: F Test: CARBON DIOXIDE LEVEL; Value: 28; Range: 21-32; Units: MEQ/L; Status: F Test: ANION GAP; Value: 7; Range: 8-16; Abnormal: Below low normal; Units: MEQ/L; Status: F Test: CALCIUM LEVEL; Value: 8.3; Range: 8.8-10.2; Abnormal: Below low normal; Units: MG/DL; Status: F Test Note: ; Units are mL/min/1.73 m2 Chronic Kidney Disease Staging per NKF: Stage I & II GFR >=60 Normal to Mildly Decreased Stage III GFR 30-59 Moderately Decreased Stage IV GFR 15-29 Severely Decreased Stage V GFR <15 Very Little GFR Left ESRD GFR <15 on [employer]ICE [employer]IDENT [employer]ELOPMENT Lab Order: CBC with Diff; SPEC'M 04/23/16 00:26 Test: WHITE BLOOD COUNT; Value: 8.7; Range: 4.0-10.0; Units: K/mm3; Status: F Test: RED BLOOD COUNT; Value: 4.37; Range: 4.30-6.10; Units: M/mm3; Status: F Test: HEMOGLOBIN; Value: 13.5; Range: 14.0-18.0; Abnormal: Below low normal; Units: g/dl; Status: F Test: HEMATOCRIT; Value: 40.3; Range: 42.0-52.0; Abnormal: Below low normal; Units: %; Status: F Test: MEAN CORPUSCULAR VOLUME; Value: 92.4; Range: 80.0-96.0; Units: fl; Status: F Test: MEAN CORPUSCULAR HEMOGLOBIN; Value: 30.8; Range: 27.0-33.0; Units: pg; Status: F Test: MEAN CORPUSCULAR HGB CONC; Value: 33.4; Range: 32.0-36.5; Units: g/dl; Status: F Test: RED CELL DISTRIBUTION WIDTH; Value: 13.7; Range: 11.5-14.5; Units: %; Status: F Test: PLATELET COUNT, AUTOMATED; Value: 351; Range: 150-450; Units: k/mm3; Status: F Test: NEUTROPHILS %; Value: 55.7; Range: 36.0-66.0; Units: %; Status: F Test: LYMPH %; Value: 20.1; Range: 24.0-44.0; Abnormal: Below low normal; Units: %; Status: F Test: MONO %; Value: 10.2; Range: 0.0-5.0; Abnormal: Above high normal; Units: %; Status: F Test: EOS %; Value: 8.1; Range: 0.0-3.0; Abnormal: Above high normal; Units: %; Status: F Test: BASO %; Value: 0.7; Range: 0.0-1.0; Units: %; Status: F Test: LARGE UNSTAINED CELL %; Value: 5.2; Range: 0.0-4.0; Abnormal: Above high normal; Units: %; Status: F Test: NEUTROPHILS #; Value: 4.8; Range: 1.8-7.7; Units: K/mm3; Status: F Test: LYMPH #; Value: 1.7; Range: 1.5-4.5; Units: K/mm3; Status: F Test: MONO #; Value: 0.9; Range: 0.0-0.8; Abnormal: Above high normal; Units: K/mm3; Status: F Test: EOS #; Value: 0.7; Range: 0.0-0.50; Abnormal: Above high normal; Units: K/mm3; Status: F Test: BASO #; Value: 0.1; Range: 0.0-0.2; Units: K/mm3; Status: F Test: LARGE UNSTAINED CELL #; Value: 0.5; Range: 0.0-0.4; Abnormal: Above high normal; Units: K/mm3; Status: F Lab Order: Cardiac Injury Profile; SPEC'M 04/23/16 00:26 Test: CPK CREATINE PHOSPHOKINASE; Value: 223; Range: 39-308; Units: U/L; Status: F Test: CK-MB VALUE MASS; Value: 3.7; Range: 0.0-3.6; Abnormal: Above high normal; Units: NG/ML; Status: F Test: MB/CK RELATIVE INDEX; Value: 1.65; Range: < OR =4; Status: F Test Note: ; DIAGNOSIS CRITERIA MMB ng/ml Relative Index (RI) NON-AMI < or = 5 N/A ARANA ZONE > 5 < or = 4 AMI > 5 > 4 Lab Order: Troponin; SPEC'M 04/23/16 00:26 Test: TROPONIN I; Value: 0.05; Range: < 0.10; Units: NG/ML; Status: F Test Note: ; Troponin I Reference Interval for Siemens turntable.fm LOCI: 99th Percentile= 0.00-0.045 ng/ml Risk Stratification: <= 0.10 ng/ml Decreased Risk for Adverse Clinical Events. 0.10-1.50 ng/ml Increased Risk for Adverse Clinical Events. Evaluation of additional criterion and/or repeat testing in 2-6 hours is suggested to rule out myocardial damage. >= 1.50 ng/ml Indicative of Myocardial Injury. Lab Order: -Influenza A&B Rapid Antigen - Nose; SPEC'M 04/23/16 00:26 Test: INFLUENZA A RAPID SCR by ICA; Value: INFLUENZA A RESULTS NEGATIVE; Status: F Test: INFLUENZA A RAPID SCR by ICA; Value: Comments:; Status: F Test: INFLUENZA B RAPID SCR by ICA; Value: INFLUENZA B RESULTS NEGATIVE; Status: F Test Note: ; The Influenza test is a direct rapid immunoassay for the qualitative detection of Influenza viral antigen. Cell culture (Viral Culture) testing should be considered to confirm NEGATIVE results and to assist in detecting other viruses that can provide similar clinical symptoms. Please contact the lab within 24 hours ([phone]) if confirmatory testing is desired. 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 Innumerable calcified hilar and; mediastinal lymph nodes are again identified. Pacemaker. Lung dejesus are clear; without acute consolidation, effusion or pneumothorax.; ; Impression:; Chronic stable changes. No acute cardiopulmonary process.; ; ; Signed by; Travis Shepherd MD 04/23/2016 08:00 A; Radiology Order: CT Chest Angio R/O PE Test: CT Chest Angio R/O PE REASON FOR EXAMINATION: Chest Pain;Shortness of Breath; ; CLINICAL HISTORY: Dyspnea, exclude PE.; TECHNIQUE: Multiple incremental axial, coronal and oblique images are obtained from the thoracic inle; t to the upper abdomen. Intravenous contrast material was administered as per pulmonary embolism prot; ocol.; COMMENTS:; Comparison is made to the prior exam on 05/01/2015.; Calcified mediastinal and hilar lymph nodes. The largest measures 1.5 cm.; Bilateral paramediastinal pulmonary interstitial thickening and scarring. Mild bilateral basilar subp; leural interstitial chronic pulmonary thickening.; Enlarged pulmonary arteries.; There is excellent opacification of pulmonary arterial system without evidence for pulmonary embolism; . Aorta is of normal caliber without evidence for dissection or aneurysm. Pacemaker lies in good posi; tion.; There is no evidence of pleural or parenchymal mass. There are no pleural effusions. There is no evid; ence of hilar or mediastinal lymphadenopathy. The heart and great vessels are within normal limits.; Images of the upper abdomen demonstrate no evidence of adrenal mass.; The bony structures are free of lytic or blastic lesions. Multilevel degenerative changes are seen in; volving the visualized thoracolumbar spine.; Scattered calcifications are seen involving the aorta and major branches compatible with atherosclero; sis.; Moderate large bowel fecal stasis.; IMPRESSION:; No evidence for pulmonary embolism.; Diffuse bilateral interstitial pulmonary thickening representing a chronic, unchanged finding.; Suspected pulmonary hypertension.; Cardiomegaly.; Thank you for your kind referral of this patient.; ; Outcome: 02:13 Discharge ordered by Provider. fg 02:35 Discharge ordered by Provider. fg 03:22 Discharge Assessment: Patient awake, alert and oriented x 3. No cognitive and/or cf2 functional deficits noted. Patient verbalized understanding of disposition instructions. Patient awake and alert. Oriented to person, place and time. patient administered narcotics - yes. Pt provided with safe discharge. The following High Risk Discharge criteria are identified: None. Discharged to home ambulatory. Condition: good. Discharge instructions given to patient, Instructed on discharge instructions, follow up and referral plans. Demonstrated understanding of instructions, Pt was receptive of discharge instructions/ teaching. CT Study completed. Property :Personal belongings accompany Pt. 03:23 Patient left the ED. cf2 Signatures: Dispatcher [employer] EDMS Donato Valera, RN RN cz Carlene Bauer jp5 Ann Rangel MD MD Vania Klein, Reg Reg hs2 Hannah Griffith Christina,RN RN cf2 Mike Savage, DIRECTOR OF STRATEGY & MOBILE DIRECTOR OF STRATEGY & MOBILE Suzy Subramanian,RN RN tm5 Corrections: (The following items were deleted from the chart) 02:59 02:57 General: Appears in no apparent distress, comfortable, Behavior is appropriate cf2 for age, cooperative, cf2 Chart Complete MTDD
--- NOTE | 2016-04-25 20:26 | EDDOCDS ---
Physician Documentation [facility] Name: Phill Corey Age: 66 yrs Sex: Male : 1950 Arrival Date: 04/23/2016 Time: 00:01 Bed D1 Private MD: Disposition: 04/23/16 02:35 Discharged to Home/Self Care. Impression: Chest pain, unspecified. - Condition is Stable. - Discharge Instructions: Nonspecific Chest Pain. - Medication Reconciliation, Local Pharmacy Hours form. - Follow up: Truong Arambula MD; When: Tomorrow; Reason: Continuance of care. - Problem is an ongoing problem. - Symptoms are unchanged. Historical: - Allergies: Polysporin; - Home Meds: 1. aspirin 325 mg Oral tab 1 tab once daily 2. lisinopril 20 mg Oral tab 1 tab once daily 3. Nexium 40 mg Oral cpDR 1 cap 2 times per day 4. atorvastatin 20 mg oral tab 1 tab once daily - PMHx: Hiatal Hernia; Hodgkin's Lymphoma; Hypercholesterolemia; Hypertension; - PSHx: Pacemaker Insertion; spleenectomy; - Social history: Smoking status: Patient states was never smoker of tobacco. No barriers to communication noted, The patient speaks fluent Yi. - Family history: Not pertinent. - : The pt / caregiver states he / she is not on anticoagulants. Home medication list is obtained from the patient. - Exposure Risk Screening:: None identified. Vital Signs: 04/23 00:12 Pulse 89; Resp 20 S; Temp 98.3(O); Pulse Ox 100% on R/A; Weight 79.38 kg / 175 lbs; tm5 Height 5 ft. 8 in. (172.72 cm); Pain 03/10; 00:18 BP 153 / 87; tm5 01:17 BP 134 / 64 (auto/); cf2 01:17 Pulse 90 MON; Pulse Ox 93% ; cf2 01:17 BP 122 / 71; cf2 01:23 Pulse 90 MON; Pulse Ox 93% ; cf2 01:33 Pulse 88 MON; Pulse Ox 94% ; cf2 01:49 Pulse 94 MON; Pulse Ox 95% ; cf2 01:55 Pulse 88 MON; Pulse Ox 93% ; cf2 02:02 Pulse 86 MON; Pulse Ox 95% ; cf2 02:12 Pulse 86 MON; Pulse Ox 93% ; cf2 02:19 Pulse 86 MON; Pulse Ox 93% ; cf2 02:27 Pulse 82 MON; Pulse Ox 94% ; cf2 02:34 Pulse 88 MON; Pulse Ox 95% ; cf2 02:41 Pulse 82 MON; Pulse Ox 93% ; cf2 02:45 Pulse 80 MON; Pulse Ox 93% ; cf2 00:12 Body Mass Index 26.61 (79.38 kg, 172.72 cm) tm5 MDM: 00:05 ECG WITH READING ER PHYS+CARDIAG ordered. EDMS 00:06 Automobile And Property Underwriter/Pulse Ox/q 15 min VS ordered. fg 00:06 IV Saline Lock ordered. fg 00:06 Oxygen at 4L/Min NC or Home dosage ordered. fg 00:06 Rhythm Strip to chart ordered. fg 00:06 Aspirin 324 mg PO once ordered. fg 00:07 -Blood Culture Ordered. EDMS 00:07 B-Type Natiuretic Peptide Ordered. EDMS 00:07 Basic Metabolic Profile Ordered. EDMS 00:07 CBC with Diff Ordered. EDMS 00:07 Cardiac Injury Profile Ordered. EDMS 00:07 Troponin Ordered. EDMS 00:09 Chest, 1 View Ordered. EDMS 00:28 CT Chest Angio R/O PE Ordered. EDMS 00:51 Obtain sample by nasal aspiration ordered. fg 00:52 -Influenza A&B Rapid Antigen - Nose Ordered. EDMS 01:14 Financial registration complete. hs2 01:25 oxyCODONE-acetaminophen 5 mg-325 mg 1 tabs PO once ordered. fg 01:43 [facility] Payment Agreement was scanned into [employer] and attached to record. hs2 21:21 T-Sheet-- Draft Copy was scanned into [employer] and attached to record. klr Administered Medications: 00:20 Drug: Aspirin 324 mg [aspirin 81 mg chewable tablet (4 tabs)] Route: PO; cf2 01:30 Drug: oxyCODONE-acetaminophen 1 tabs [oxycodone-acetaminophen 5 mg-325 mg tablet (1 cf2 tabs)] Route: PO; Signatures: Dispatcher [employer] EDMS Ann Rangel MD MD fg Vania Klein, Reg Reg hs2 Hannah Griffith klCriss Marshall RN RN cf2 Suzy Bailey RN RN tm5 The chart was reviewed and I authenticate all verbal orders and agree with the evaluation and treatment provided.Attachments: 01:43 [facility] Payment Agreement hs2 21:21 T-Sheet-- Draft Copy klr Chart Complete MTDD
--- NOTE | 2016-04-25 20:26 | EDDOCDS ---
Physician Documentation [facility] Name: Phill Corey Age: 66 yrs Sex: Male : 1950 Arrival Date: 04/23/2016 Time: 00:01 Bed D1 Private MD: Disposition: 04/23/16 02:35 Discharged to Home/Self Care. Impression: Chest pain, unspecified. - Condition is Stable. - Discharge Instructions: Nonspecific Chest Pain. - Medication Reconciliation, Local Pharmacy Hours form. - Follow up: Truong Arambula MD; When: Tomorrow; Reason: Continuance of care. - Problem is an ongoing problem. - Symptoms are unchanged. Historical: - Allergies: Polysporin; - Home Meds: 1. aspirin 325 mg Oral tab 1 tab once daily 2. lisinopril 20 mg Oral tab 1 tab once daily 3. Nexium 40 mg Oral cpDR 1 cap 2 times per day 4. atorvastatin 20 mg oral tab 1 tab once daily - PMHx: Hiatal Hernia; Hodgkin's Lymphoma; Hypercholesterolemia; Hypertension; - PSHx: Pacemaker Insertion; spleenectomy; - Social history: Smoking status: Patient states was never smoker of tobacco. No barriers to communication noted, The patient speaks fluent Setswana. - Family history: Not pertinent. - : The pt / caregiver states he / she is not on anticoagulants. Home medication list is obtained from the patient. - Exposure Risk Screening:: None identified. Vital Signs: 04/23 00:12 Pulse 89; Resp 20 S; Temp 98.3(O); Pulse Ox 100% on R/A; Weight 79.38 kg / 175 lbs; tm5 Height 5 ft. 8 in. (172.72 cm); Pain 03/10; 00:18 BP 153 / 87; tm5 01:17 BP 134 / 64 (auto/); cf2 01:17 Pulse 90 MON; Pulse Ox 93% ; cf2 01:17 BP 122 / 71; cf2 01:23 Pulse 90 MON; Pulse Ox 93% ; cf2 01:33 Pulse 88 MON; Pulse Ox 94% ; cf2 01:49 Pulse 94 MON; Pulse Ox 95% ; cf2 01:55 Pulse 88 MON; Pulse Ox 93% ; cf2 02:02 Pulse 86 MON; Pulse Ox 95% ; cf2 02:12 Pulse 86 MON; Pulse Ox 93% ; cf2 02:19 Pulse 86 MON; Pulse Ox 93% ; cf2 02:27 Pulse 82 MON; Pulse Ox 94% ; cf2 02:34 Pulse 88 MON; Pulse Ox 95% ; cf2 02:41 Pulse 82 MON; Pulse Ox 93% ; cf2 02:45 Pulse 80 MON; Pulse Ox 93% ; cf2 00:12 Body Mass Index 26.61 (79.38 kg, 172.72 cm) tm5 MDM: 00:05 ECG WITH READING ER PHYS+CARDIAG ordered. EDMS 00:06 Electrode Turner And Finisher/Pulse Ox/q 15 min VS ordered. fg 00:06 IV Saline Lock ordered. fg 00:06 Oxygen at 4L/Min NC or Home dosage ordered. fg 00:06 Rhythm Strip to chart ordered. fg 00:06 Aspirin 324 mg PO once ordered. fg 00:07 -Blood Culture Ordered. EDMS 00:07 B-Type Natiuretic Peptide Ordered. EDMS 00:07 Basic Metabolic Profile Ordered. EDMS 00:07 CBC with Diff Ordered. EDMS 00:07 Cardiac Injury Profile Ordered. EDMS 00:07 Troponin Ordered. EDMS 00:09 Chest, 1 View Ordered. EDMS 00:28 CT Chest Angio R/O PE Ordered. EDMS 00:51 Obtain sample by nasal aspiration ordered. fg 00:52 -Influenza A&B Rapid Antigen - Nose Ordered. EDMS 01:14 Financial registration complete. hs2 01:25 oxyCODONE-acetaminophen 5 mg-325 mg 1 tabs PO once ordered. fg 01:43 [facility] Payment Agreement was scanned into [employer] and attached to record. hs2 21:21 T-Sheet-- Draft Copy was scanned into [employer] and attached to record. klr Administered Medications: 00:20 Drug: Aspirin 324 mg [aspirin 81 mg chewable tablet (4 tabs)] Route: PO; cf2 01:30 Drug: oxyCODONE-acetaminophen 1 tabs [oxycodone-acetaminophen 5 mg-325 mg tablet (1 cf2 tabs)] Route: PO; Signatures: Dispatcher [employer] EDMS Ann Rangel MD MD fg Vania Klein, Reg Reg hs2 Hannah Griffith klCriss Marshall RN RN cf2 Suzy Bailey RN RN tm5 The chart was reviewed and I authenticate all verbal orders and agree with the evaluation and treatment provided.Attachments: 01:43 [facility] Payment Agreement hs2 21:21 T-Sheet-- Draft Copy klr Chart Complete MTDD
--- NOTE | 2016-04-26 20:11 | EDDOCDS ---
Physician Documentation [facility] Name: Phill Corey Age: 66 yrs Sex: Male : 1950 Arrival Date: 04/23/2016 Time: 00:01 Bed D1 Private MD: Disposition: 04/23/16 02:35 Discharged to Home/Self Care. Impression: Chest pain, unspecified. - Condition is Stable. - Discharge Instructions: Nonspecific Chest Pain. - Medication Reconciliation, Local Pharmacy Hours form. - Follow up: Truong Arambula MD; When: Tomorrow; Reason: Continuance of care. - Problem is an ongoing problem. - Symptoms are unchanged. Historical: - Allergies: Polysporin; - Home Meds: 1. aspirin 325 mg Oral tab 1 tab once daily 2. lisinopril 20 mg Oral tab 1 tab once daily 3. Nexium 40 mg Oral cpDR 1 cap 2 times per day 4. atorvastatin 20 mg oral tab 1 tab once daily - PMHx: Hiatal Hernia; Hodgkin's Lymphoma; Hypercholesterolemia; Hypertension; - PSHx: Pacemaker Insertion; spleenectomy; - Social history: Smoking status: Patient states was never smoker of tobacco. No barriers to communication noted, The patient speaks fluent Kyrgyz. - Family history: Not pertinent. - : The pt / caregiver states he / she is not on anticoagulants. Home medication list is obtained from the patient. - Exposure Risk Screening:: None identified. Vital Signs: 04/23 00:12 Pulse 89; Resp 20 S; Temp 98.3(O); Pulse Ox 100% on R/A; Weight 79.38 kg / 175 lbs; tm5 Height 5 ft. 8 in. (172.72 cm); Pain 03/10; 00:18 BP 153 / 87; tm5 01:17 BP 134 / 64 (auto/); cf2 01:17 Pulse 90 MON; Pulse Ox 93% ; cf2 01:17 BP 122 / 71; cf2 01:23 Pulse 90 MON; Pulse Ox 93% ; cf2 01:33 Pulse 88 MON; Pulse Ox 94% ; cf2 01:49 Pulse 94 MON; Pulse Ox 95% ; cf2 01:55 Pulse 88 MON; Pulse Ox 93% ; cf2 02:02 Pulse 86 MON; Pulse Ox 95% ; cf2 02:12 Pulse 86 MON; Pulse Ox 93% ; cf2 02:19 Pulse 86 MON; Pulse Ox 93% ; cf2 02:27 Pulse 82 MON; Pulse Ox 94% ; cf2 02:34 Pulse 88 MON; Pulse Ox 95% ; cf2 02:41 Pulse 82 MON; Pulse Ox 93% ; cf2 02:45 Pulse 80 MON; Pulse Ox 93% ; cf2 00:12 Body Mass Index 26.61 (79.38 kg, 172.72 cm) tm5 MDM: 00:05 ECG WITH READING ER PHYS+CARDIAG ordered. EDMS 00:06 Occupational Health Professional/Pulse Ox/q 15 min VS ordered. fg 00:06 IV Saline Lock ordered. fg 00:06 Oxygen at 4L/Min NC or Home dosage ordered. fg 00:06 Rhythm Strip to chart ordered. fg 00:06 Aspirin 324 mg PO once ordered. fg 00:07 -Blood Culture Ordered. EDMS 00:07 B-Type Natiuretic Peptide Ordered. EDMS 00:07 Basic Metabolic Profile Ordered. EDMS 00:07 CBC with Diff Ordered. EDMS 00:07 Cardiac Injury Profile Ordered. EDMS 00:07 Troponin Ordered. EDMS 00:09 Chest, 1 View Ordered. EDMS 00:28 CT Chest Angio R/O PE Ordered. EDMS 00:51 Obtain sample by nasal aspiration ordered. fg 00:52 -Influenza A&B Rapid Antigen - Nose Ordered. EDMS 01:14 Financial registration complete. hs2 01:25 oxyCODONE-acetaminophen 5 mg-325 mg 1 tabs PO once ordered. fg 01:43 [facility] [place] was scanned into [email or web address] and attached to record. hs2 21:21 T-Sheet-- Draft Copy was scanned into [email or web address] and attached to record. klr Administered Medications: 00:20 Drug: Aspirin 324 mg [aspirin 81 mg chewable tablet (4 tabs)] Route: PO; cf2 01:30 Drug: oxyCODONE-acetaminophen 1 tabs [oxycodone-acetaminophen 5 mg-325 mg tablet (1 cf2 tabs)] Route: PO; Signatures: Dispatcher [employer] EDMS Ann Rangel MD MD fg Vania Klein, Reg Reg hs2 Hannah Griffith klCriss Marshall RN RN cf2 Suzy Bailey RN RN tm5 The chart was reviewed and I authenticate all verbal orders and agree with the evaluation and treatment provided.Attachments: 01:43 [facility] Payment Agreement hs2 21:21 T-Sheet-- Draft Copy klr Chart Complete MTDD
--- NOTE | 2016-04-26 20:11 | EDDOCDS ---
Physician Documentation [facility] Name: Phill Corey Age: 66 yrs Sex: Male : 1950 Arrival Date: 04/23/2016 Time: 00:01 Bed D1 Private MD: Disposition: 04/23/16 02:35 Discharged to Home/Self Care. Impression: Chest pain, unspecified. - Condition is Stable. - Discharge Instructions: Nonspecific Chest Pain. - Medication Reconciliation, Local Pharmacy Hours form. - Follow up: Truong Arambula MD; When: Tomorrow; Reason: Continuance of care. - Problem is an ongoing problem. - Symptoms are unchanged. Historical: - Allergies: Polysporin; - Home Meds: 1. aspirin 325 mg Oral tab 1 tab once daily 2. lisinopril 20 mg Oral tab 1 tab once daily 3. Nexium 40 mg Oral cpDR 1 cap 2 times per day 4. atorvastatin 20 mg oral tab 1 tab once daily - PMHx: Hiatal Hernia; Hodgkin's Lymphoma; Hypercholesterolemia; Hypertension; - PSHx: Pacemaker Insertion; spleenectomy; - Social history: Smoking status: Patient states was never smoker of tobacco. No barriers to communication noted, The patient speaks fluent Portuguese. - Family history: Not pertinent. - : The pt / caregiver states he / she is not on anticoagulants. Home medication list is obtained from the patient. - Exposure Risk Screening:: None identified. Vital Signs: 04/23 00:12 Pulse 89; Resp 20 S; Temp 98.3(O); Pulse Ox 100% on R/A; Weight 79.38 kg / 175 lbs; tm5 Height 5 ft. 8 in. (172.72 cm); Pain 03/10; 00:18 BP 153 / 87; tm5 01:17 BP 134 / 64 (auto/); cf2 01:17 Pulse 90 MON; Pulse Ox 93% ; cf2 01:17 BP 122 / 71; cf2 01:23 Pulse 90 MON; Pulse Ox 93% ; cf2 01:33 Pulse 88 MON; Pulse Ox 94% ; cf2 01:49 Pulse 94 MON; Pulse Ox 95% ; cf2 01:55 Pulse 88 MON; Pulse Ox 93% ; cf2 02:02 Pulse 86 MON; Pulse Ox 95% ; cf2 02:12 Pulse 86 MON; Pulse Ox 93% ; cf2 02:19 Pulse 86 MON; Pulse Ox 93% ; cf2 02:27 Pulse 82 MON; Pulse Ox 94% ; cf2 02:34 Pulse 88 MON; Pulse Ox 95% ; cf2 02:41 Pulse 82 MON; Pulse Ox 93% ; cf2 02:45 Pulse 80 MON; Pulse Ox 93% ; cf2 00:12 Body Mass Index 26.61 (79.38 kg, 172.72 cm) tm5 MDM: 00:05 ECG WITH READING ER PHYS+CARDIAG ordered. EDMS 00:06 Choke Setter/Pulse Ox/q 15 min VS ordered. fg 00:06 IV Saline Lock ordered. fg 00:06 Oxygen at 4L/Min NC or Home dosage ordered. fg 00:06 Rhythm Strip to chart ordered. fg 00:06 Aspirin 324 mg PO once ordered. fg 00:07 -Blood Culture Ordered. EDMS 00:07 B-Type Natiuretic Peptide Ordered. EDMS 00:07 Basic Metabolic Profile Ordered. EDMS 00:07 CBC with Diff Ordered. EDMS 00:07 Cardiac Injury Profile Ordered. EDMS 00:07 Troponin Ordered. EDMS 00:09 Chest, 1 View Ordered. EDMS 00:28 CT Chest Angio R/O PE Ordered. EDMS 00:51 Obtain sample by nasal aspiration ordered. fg 00:52 -Influenza A&B Rapid Antigen - Nose Ordered. EDMS 01:14 Financial registration complete. hs2 01:25 oxyCODONE-acetaminophen 5 mg-325 mg 1 tabs PO once ordered. fg 01:43 [facility] [place] was scanned into [employer] and attached to record. hs2 21:21 T-Sheet-- Draft Copy was scanned into [employer] and attached to record. klr Administered Medications: 00:20 Drug: Aspirin 324 mg [aspirin 81 mg chewable tablet (4 tabs)] Route: PO; cf2 01:30 Drug: oxyCODONE-acetaminophen 1 tabs [oxycodone-acetaminophen 5 mg-325 mg tablet (1 cf2 tabs)] Route: PO; Signatures: Dispatcher [employer] EDMS Ann Rangel MD MD fg Vania Klein, Reg Reg hs2 Hannah Griffith klCriss Marshall RN RN cf2 Suzy Bailey RN RN tm5 The chart was reviewed and I authenticate all verbal orders and agree with the evaluation and treatment provided.Attachments: 01:43 [facility] Payment Agreement hs2 21:21 T-Sheet-- Draft Copy klr Chart Complete MTDD
--- NOTE | 2016-04-26 20:12 | EDDOCDS ---
Nurse's Notes [facility] Name: Stephen Corey Age: 66 yrs Sex: Male : 1950 Arrival Date: 04/23/2016 Time: 00:01 Bed D1 Private MD: Diagnosis: Chest pain, unspecified Presentation: 04/23 00:06 Presenting complaint: Patient states: per pt chest pain & SOB started a few days ago, tm5 but tonight chest pain became worse, pt was seen by his PMD today for neck pain, dry, CHIEF OF INTERNAL MEDICINE cough as well, pt with history of Pacemaker. Aspirin was not taken prior to arrival. Adult Sepsis Screening: The patient does not have new or worsening altered mentation. Patient's respiratory rate is less than 22. Systolic blood pressure is greater than 100. Patient has a qSOFA score of 0- Negative Sepsis Screen. Suicide/Homicide risk assessment- the patient denies having any suicidal and/or homicidal ideations and does not present with any other emotional, behavioral or mental health complaints. 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 Transition of care: patient was not received from another setting of care. 00:06 Acuity: KAREN Level 3 tm5 00:06 Method Of Arrival: Walkin/Carried/Asstd tm5 Triage Assessment: 00:12 General: Appears in no apparent distress, Behavior is appropriate for age, cooperative. tm5 Pain: Location: mid-sternal area Pain currently is 1 out of 10 on a pain scale. Quality of pain is described as aching. Pt Declines HIV testing. The patient is triaged at the bedside. See Assessment in Nurses Notes section of ED record. Neurological: Level of Consciousness is awake, alert, Oriented to person, place, time. Cardiovascular: Chest pain is described as vague, radiates Does not radiate. episodes past 2 days began 2 days. Respiratory: Airway is patent Respiratory effort is even, unlabored, Respiratory pattern is regular, symmetrical. Derm: Skin is pink, warm & dry. Historical: - Allergies: Polysporin; - Home Meds: 1. aspirin 325 mg Oral tab 1 tab once daily 2. lisinopril 20 mg Oral tab 1 tab once daily 3. Nexium 40 mg Oral cpDR 1 cap 2 times per day 4. atorvastatin 20 mg oral tab 1 tab once daily - PMHx: Hiatal Hernia; Hodgkin's Lymphoma; Hypercholesterolemia; Hypertension; - PSHx: Pacemaker Insertion; spleenectomy; - Social history: Smoking status: Patient states was never smoker of tobacco. No barriers to communication noted, The patient speaks fluent Guinean. - Family history: Not pertinent. - : The pt / caregiver states he / she is not on anticoagulants. Home medication list is obtained from the patient. - Exposure Risk Screening:: None identified. Screenin:16 Screening information is obtained from the patient. Fall risk: No risks identified. tm5 Assistance ADL's: requires no assistance with activities of daily living. Abuse/DV Screen: The patient / caregiver reports he/she is: not in a situation that causes fear, pain or injury. Nutritional screening: No deficits noted. Advance Directives: Currently, there is no health care proxy. There is no active DNR order. home support is adequate. Assessment: 00:30 General: Appears in no apparent distress, comfortable, Behavior is appropriate for age, cf2 cooperative. 02:57 Cardiovascular: Rhythm is ventricular pacer Chest pain is denied Reports cough cold cf2 symptoms. Vital Signs: 00:12 Pulse 89; Resp 20 S; Temp 98.3(O); Pulse Ox 100% on R/A; Weight 79.38 kg; Height 5 ft. tm5 8 in. (172.72 cm); Pain 1/10; 00:18 BP 153 / 87; tm5 01:17 BP 134 / 64 (auto/); cf2 01:17 Pulse 90 MON; Pulse Ox 93% ; cf2 01:17 BP 122 / 71; cf2 01:23 Pulse 90 MON; Pulse Ox 93% ; cf2 01:33 Pulse 88 MON; Pulse Ox 94% ; cf2 01:49 Pulse 94 MON; Pulse Ox 95% ; cf2 01:55 Pulse 88 MON; Pulse Ox 93% ; cf2 02:02 Pulse 86 MON; Pulse Ox 95% ; cf2 02:12 Pulse 86 MON; Pulse Ox 93% ; cf2 02:19 Pulse 86 MON; Pulse Ox 93% ; cf2 02:27 Pulse 82 MON; Pulse Ox 94% ; cf2 02:34 Pulse 88 MON; Pulse Ox 95% ; cf2 02:41 Pulse 82 MON; Pulse Ox 93% ; cf2 02:45 Pulse 80 MON; Pulse Ox 93% ; cf2 00:12 Body Mass Index 26.61 (79.38 kg, 172.72 cm) tm5 Vitals: 00:12 Log In Time: April 23, 2016 at 00:14. tm5 ED Course: 00:02 Patient visited by Carlene Bauer. jp5 00:02 Patient moved to Waiting jp5 00:05 Patient visited by Suzy Bailey,JIA. tm5 00:05 Patient moved to 11 cz 00:07 Triage Initiated tm5 00:09 Ann Rangel MD is Attending Physician. fg 00:09 Patient visited by Ann Rangel MD. fg 00:11 Criss Jenkins,JIA is Primary Nurse. cf2 00:11 Patient visited by Criss Jenkins RN. cf2 00:12 Family accompanied patient. tm5 00:22 Patient visited by Criss Jenkins RN. cf2 00:24 Pt greeted and oriented to ED. Patient advised of names of staff involved in care, jmv location of call mata, wait times and NPO status. Accompanied by Significant Other, Patient has correct armband on for positive identification. Placed in gown. Bed in low position. Call light in reach. Side rails up X2. cardiac monitor on. Pulse ox on. NIBP on. 00:24 EKG done. (by ED staff). Reviewed by Ann Rangel MD. jmv 00:25 Patient visited by Mike Savage PCA. jmv 00:45 Troponin Sent. cf2 00:56 Patient visited by Criss Jenkins RN. cf2 00:57 -Influenza A&B Rapid Antigen - Nose Sent. cf2 00:57 -Blood Culture Sent. cf2 00:57 B-Type Natiuretic Peptide Sent. cf2 00:57 Basic Metabolic Profile Sent. cf2 00:57 CBC with Diff Sent. cf2 00:57 Cardiac Injury Profile Sent. cf2 01:09 Patient visited by Criss Jenkins RN. cf2 01:43 [facility] Payment Agreement was scanned into [employer] and attached to record. hs2 01:52 Patient visited by Criss Jenkins RN. cf2 02:35 Truong Arambula MD is Referral Physician. fg 02:53 CT Chest Angio R/O PE Returned. EDMS 02:57 Patient visited by Criss Jenkins RN. cf2 03:13 Patient moved to cz 03:23 The patient / caregiver is instructed regarding the plan of care and ED course. cf2 03:23 Discontinued lock. No procedures done that require assistance. cf2 08:33 Chest, 1 View Returned. EDMS 21:21 T-Sheet-- Draft Copy was scanned into [employer] and attached to record. [facility] 04/24 15:14 EKG-ADULT Returned. EDMS Administered Medications: 04/23 00:20 Drug: Aspirin 324 mg [aspirin 81 mg chewable tablet (4 tabs)] Route: PO; cf2 01:30 Drug: oxyCODONE-acetaminophen 1 tabs [oxycodone-acetaminophen 5 mg-325 mg tablet (1 cf2 tabs)] Route: PO; Order Results: Lab Order: -Blood Culture; SPEC'M 04/23/16 00:26 Test: BLOOD CULTURE; Value: No growth after 48 hours . All specimens observed; Status: F Test: BLOOD CULTURE; Value: for 5 days. Results final at that time.; Status: F Test: BLOOD CULTURE; Status: F Test: BLOOD CULTURE; Value: No growth after 24 hours . All specimens observed; Status: F Test: BLOOD CULTURE; Value: for 5 days. Results final at that time.; Status: F Test: BLOOD CULTURE; Value: No Growth after 72 hours. All specimens observed; Status: F Test: BLOOD CULTURE; Value: for 7 days. Results final at that time.; Status: F Lab Order: B-Type Natiuretic Peptide; SPEC' 04/23/16 00:26 Test: BRAIN NATRIURETIC PEPTIDE; Value: 161; Range: <100; Abnormal: Above high normal; Units: PG/ML; Status: F Lab Order: Basic Metabolic Profile; SPEC'M 04/23/16 00:26 Test: GLUCOSE, FASTING; Value: 123; Range: 80-110; Abnormal: Above high normal; Units: MG/DL; Status: F Test: BLOOD UREA NITROGEN; Value: 20; Range: 7-18; Abnormal: Above high normal; Units: MG/DL; Status: F Test: CREATININE FOR GFR; Value: 1.00; Range: 0.70-1.30; Units: MG/DL; Status: F Test: GLOMERULAR FILTRATION RATE; Value: > 60.0; Range: >49; Status: F Test: SODIUM LEVEL; Value: 147; Range: 136-145; Abnormal: Above high normal; Units: MEQ/L; Status: F Test: POTASSIUM SERUM; Value: 3.8; Range: 3.5-5.1; Units: MEQ/L; Status: F Test: CHLORIDE LEVEL; Value: 112; Range: 98-107; Abnormal: Above high normal; Units: MEQ/L; Status: F Test: CARBON DIOXIDE LEVEL; Value: 28; Range: 21-32; Units: MEQ/L; Status: F Test: ANION GAP; Value: 7; Range: 8-16; Abnormal: Below low normal; Units: MEQ/L; Status: F Test: CALCIUM LEVEL; Value: 8.3; Range: 8.8-10.2; Abnormal: Below low normal; Units: MG/DL; Status: F Test Note: ; Units are mL/min/1.73 m2 Chronic Kidney Disease Staging per NKF: Stage I & II GFR >=60 Normal to Mildly Decreased Stage III GFR 30-59 Moderately Decreased Stage IV GFR 15-29 Severely Decreased Stage V GFR <15 Very Little GFR Left ESRD GFR <15 on EXCEL EXPERT Lab Order: CBC with Diff; SPEC'M 04/23/16 00:26 Test: WHITE BLOOD COUNT; Value: 8.7; Range: 4.0-10.0; Units: K/mm3; Status: F Test: RED BLOOD COUNT; Value: 4.37; Range: 4.30-6.10; Units: M/mm3; Status: F Test: HEMOGLOBIN; Value: 13.5; Range: 14.0-18.0; Abnormal: Below low normal; Units: g/dl; Status: F Test: HEMATOCRIT; Value: 40.3; Range: 42.0-52.0; Abnormal: Below low normal; Units: %; Status: F Test: MEAN CORPUSCULAR VOLUME; Value: 92.4; Range: 80.0-96.0; Units: fl; Status: F Test: MEAN CORPUSCULAR HEMOGLOBIN; Value: 30.8; Range: 27.0-33.0; Units: pg; Status: F Test: MEAN CORPUSCULAR HGB CONC; Value: 33.4; Range: 32.0-36.5; Units: g/dl; Status: F Test: RED CELL DISTRIBUTION WIDTH; Value: 13.7; Range: 11.5-14.5; Units: %; Status: F Test: PLATELET COUNT, AUTOMATED; Value: 351; Range: 150-450; Units: k/mm3; Status: F Test: NEUTROPHILS %; Value: 55.7; Range: 36.0-66.0; Units: %; Status: F Test: LYMPH %; Value: 20.1; Range: 24.0-44.0; Abnormal: Below low normal; Units: %; Status: F Test: MONO %; Value: 10.2; Range: 0.0-5.0; Abnormal: Above high normal; Units: %; Status: F Test: EOS %; Value: 8.1; Range: 0.0-3.0; Abnormal: Above high normal; Units: %; Status: F Test: BASO %; Value: 0.7; Range: 0.0-1.0; Units: %; Status: F Test: LARGE UNSTAINED CELL %; Value: 5.2; Range: 0.0-4.0; Abnormal: Above high normal; Units: %; Status: F Test: NEUTROPHILS #; Value: 4.8; Range: 1.8-7.7; Units: K/mm3; Status: F Test: LYMPH #; Value: 1.7; Range: 1.5-4.5; Units: K/mm3; Status: F Test: MONO #; Value: 0.9; Range: 0.0-0.8; Abnormal: Above high normal; Units: K/mm3; Status: F Test: EOS #; Value: 0.7; Range: 0.0-0.50; Abnormal: Above high normal; Units: K/mm3; Status: F Test: BASO #; Value: 0.1; Range: 0.0-0.2; Units: K/mm3; Status: F Test: LARGE UNSTAINED CELL #; Value: 0.5; Range: 0.0-0.4; Abnormal: Above high normal; Units: K/mm3; Status: F Lab Order: Cardiac Injury Profile; SPEC'M 04/23/16 00:26 Test: CPK CREATINE PHOSPHOKINASE; Value: 223; Range: 39-308; Units: U/L; Status: F Test: CK-MB VALUE MASS; Value: 3.7; Range: 0.0-3.6; Abnormal: Above high normal; Units: NG/ML; Status: F Test: MB/CK RELATIVE INDEX; Value: 1.65; Range: < OR =4; Status: F Test Note: ; DIAGNOSIS CRITERIA MMB ng/ml Relative Index (RI) NON-AMI < or = 5 N/A ARANA ZONE > 5 < or = 4 AMI > 5 > 4 Lab Order: Troponin; SPEC'M 04/23/16 00:26 Test: TROPONIN I; Value: 0.05; Range: < 0.10; Units: NG/ML; Status: F Test Note: ; Troponin I Reference Interval for [employer] LOCI: 99th Percentile= 0.00-0.045 ng/ml Risk Stratification: <= 0.10 ng/ml Decreased Risk for Adverse Clinical Events. 0.10-1.50 ng/ml Increased Risk for Adverse Clinical Events. Evaluation of additional criterion and/or repeat testing in 2-6 hours is suggested to rule out myocardial damage. >= 1.50 ng/ml Indicative of Myocardial Injury. Lab Order: -Influenza A&B Rapid Antigen - Nose; SPEC'M 04/23/16 00:26 Test: INFLUENZA A RAPID SCR by ICA; Value: INFLUENZA A RESULTS NEGATIVE; Status: F Test: INFLUENZA A RAPID SCR by ICA; Value: Comments:; Status: F Test: INFLUENZA B RAPID SCR by ICA; Value: INFLUENZA B RESULTS NEGATIVE; Status: F Test Note: ; The Influenza test is a direct rapid immunoassay for the qualitative detection of Influenza viral antigen. Cell culture (Viral Culture) testing should be considered to confirm NEGATIVE results and to assist in detecting other viruses that can provide similar clinical symptoms. Please contact the lab within 24 hours ([phone]) if confirmatory testing is desired. Radiology Order: EKG-ADULT Test: EKG-ADULT REASON FOR EXAMINATION: Chest Pain; Stationary ECG Study; [facility] - ED; ; Test Date: 2016-04-23; Pat Name: STEPHEN [place] Department:; Room: -; Gender: M Director Instructional Material: padilla; : 1950 Requested By: ANN Jackson; Order Number: [id number] Reading MD: Nohemi Mathur; Measurements; Intervals [place]; Rate: 94 P: 49; WA: 197 QRS: -54; QRSD: 169 T: 99; QT: 399; QTc: 499; Interpretive Statements; ELECTRONIC VENTRICULAR PACEMAKER; ABNORMAL RHYTHM ECG; SINUS RHYTHM; PRIOR 07/19/15 NOT PACED; Electronically Signed On 04-24-2016 15:07:40 EST by Nohemi Mathur; Radiology Order: Chest, 1 View Test: Chest, 1 View REASON FOR EXAMINATION: Chest Pain; Clinical: Chest pain.; ; Comparison: 07/19/2015; ; Findings:; Mediastinum and cardiac silhouette are stable. Innumerable calcified hilar and; mediastinal lymph nodes are again identified. Pacemaker. Lung dejesus are clear; without acute consolidation, effusion or pneumothorax.; ; Impression:; Chronic stable changes. No acute cardiopulmonary process.; ; ; Signed by; Travis Shepherd MD 04/23/2016 08:00 A; Radiology Order: CT Chest Angio R/O PE Test: CT Chest Angio R/O PE REASON FOR EXAMINATION: Chest Pain;Shortness of Breath; ; CLINICAL HISTORY: Dyspnea, exclude PE.; TECHNIQUE: Multiple incremental axial, coronal and oblique images are obtained from the thoracic inle; t to the upper abdomen. Intravenous contrast material was administered as per pulmonary embolism prot; ocol.; COMMENTS:; Comparison is made to the prior exam on 05/01/2015.; Calcified mediastinal and hilar lymph nodes. The largest measures 1.5 cm.; Bilateral paramediastinal pulmonary interstitial thickening and scarring. Mild bilateral basilar subp; leural interstitial chronic pulmonary thickening.; Enlarged pulmonary arteries.; There is excellent opacification of pulmonary arterial system without evidence for pulmonary embolism; . Aorta is of normal caliber without evidence for dissection or aneurysm. Pacemaker lies in good posi; tion.; There is no evidence of pleural or parenchymal mass. There are no pleural effusions. There is no evid; ence of hilar or mediastinal lymphadenopathy. The heart and great vessels are within normal limits.; Images of the upper abdomen demonstrate no evidence of adrenal mass.; The bony structures are free of lytic or blastic lesions. Multilevel degenerative changes are seen in; volving the visualized thoracolumbar spine.; Scattered calcifications are seen involving the aorta and major branches compatible with atherosclero; sis.; Moderate large bowel fecal stasis.; IMPRESSION:; No evidence for pulmonary embolism.; Diffuse bilateral interstitial pulmonary thickening representing a chronic, unchanged finding.; Suspected pulmonary hypertension.; Cardiomegaly.; Thank you for your kind referral of this patient.; ; Outcome: 02:13 Discharge ordered by Provider. fg 02:35 Discharge ordered by Provider. fg 03:22 Discharge Assessment: Patient awake, alert and oriented x 3. No cognitive and/or cf2 functional deficits noted. Patient verbalized understanding of disposition instructions. Patient awake and alert. Oriented to person, place and time. patient administered narcotics - yes. Pt provided with safe discharge. The following High Risk Discharge criteria are identified: None. Discharged to home ambulatory. Condition: good. Discharge instructions given to patient, Instructed on discharge instructions, follow up and referral plans. Demonstrated understanding of instructions, Pt was receptive of discharge instructions/ teaching. CT Study completed. Property :Personal belongings accompany Pt. 03:23 Patient left the ED. cf2 Signatures: Dispatcher [employer] EDMS Donato Valera, RN RN Carlene Billings jp5 Ann Rangel MD MD fg Vania Klein, Reg Reg hs2 Hannah Griffith Christina,RN RN cf2 Mike Savage, SANDWICH WRAPPER SANDWICH WRAPPER jmv Suzy Bailey,RN RN tm5 Corrections: (The following items were deleted from the chart) 02:59 02:57 General: Appears in no apparent distress, comfortable, Behavior is appropriate cf2 for age, cooperative, cf2 Chart Complete MTDD
== END 2016-04-23 03:23 | disposition home or self-care (01) ==
LOC: M ED 00:01
DX: R07.9 Chest pain, unspecified (principal); I51.7 Cardiomegaly; I10 Essential (primary) hypertension; K44.9 Diaphragmatic hernia without obstruction or gangrene; E78.00 Pure hypercholesterolemia, unspecified; C81.90 Hodgkin lymphoma, unspecified, unspecified site; Z90.5 Acquired absence of kidney; Z90.89 Acquired absence of other organs; Z79.82 Long term (current) use of aspirin; Z79.899 Other long term (current) drug therapy; Z88.8 Allergy status to other drugs, medicaments and biological substances
CPT/HCPCS: 71010; 71275; 80048; 82550; 82553; 83880; 85025; 87040; 87804; 93005; 93041; 99285; Q9967

== ENCOUNTER → 2016-10-06 | Outpatient (REF) | payer OTHER ==
[2016-10-06 19:33] LABS: INR 0.85
== END ==
LOC: M LAB REF 18:07
PROVIDERS: ATTEND Family Medicine
DX: D69.2 Other nonthrombocytopenic purpura (principal)

== ENCOUNTER 2016-10-28 10:30 | Outpatient (RCR) | payer OTHER | END 2016-10-29 | LOC: M CR 10:30 | PROVIDERS: ATTEND Internal Medicine Cardiovascular Disease | DX: Z51.89 Encounter for other specified aftercare (principal) ==

== ENCOUNTER → 2016-11-16 | Outpatient (REF) | payer OTHER | LOC: M LAB REF 09:26 | PROVIDERS: ATTEND Family Medicine | DX: R74.8 Abnormal levels of other serum enzymes (principal) ==

== ENCOUNTER 2016-11-27 11:02 | Outpatient (RCR) | payer OTHER | END 2016-11-28 | LOC: M CR 11:02 | PROVIDERS: ATTEND Internal Medicine Cardiovascular Disease | DX: Z51.89 Encounter for other specified aftercare (principal); Z95.4 Presence of other heart-valve replacement ==

== ENCOUNTER → 2017-08-06 | Outpatient (REF) | payer MEDICARE, OTHER ==
[2017-08-11 00:06] LABS: C6 BORRELIA BURGDORFERI (LYME) <0.91 index (0.00-0.90)
== END ==
LOC: M LAB REF 16:19
DX: D23.9 Other benign neoplasm of skin, unspecified (principal); A69.29 Other conditions associated with Lyme disease
CPT/HCPCS: 86618

== ENCOUNTER → 2017-08-10 | Day surgery (SDC) | payer OTHER ==
[~2017-08-10] MED LIST changes: -ATOR1TAB21 PO; +LIDOCAINE 2% INJ 100 MG/5 ML SDV (FOR ANES.) As Ordered; -LISI-538 PO; -METRCRM TOP; -MULTCAP PO; -NEXI40CA PO; +PROPOFOL 200 MG/20 ML VIAL As Ordered; -STOO100C PO; +fentaNYL 100 MCG/2 ML INJECTION (J3010) As Ordered
[2017-08-10] MEDS: NS 1,000 ML IV (09:28)
== END | disposition home or self-care (01) ==
LOC: M OPP 08:54
DX: Z12.11 Encounter for screening for malignant neoplasm of colon (principal); D12.2 Benign neoplasm of ascending colon; Q43.8 Other specified congenital malformations of intestine; Z86.010 Personal history of colon polyps; R13.10 Dysphagia, unspecified; K44.9 Diaphragmatic hernia without obstruction or gangrene; R12 Heartburn; K64.8 Other hemorrhoids; I48.91 Unspecified atrial fibrillation; I35.1 Nonrheumatic aortic (valve) insufficiency; I34.8 Other nonrheumatic mitral valve disorders; I10 Essential (primary) hypertension; R23.3 Spontaneous ecchymoses; Z79.01 Long term (current) use of anticoagulants; Z79.899 Other long term (current) drug therapy; Z88.0 Allergy status to penicillin; Z88.8 Allergy status to other drugs, medicaments and biological substances; Z91.040 Latex allergy status; Z95.0 Presence of cardiac pacemaker
CPT/HCPCS: 45385

== ENCOUNTER → 2017-12-22 | Outpatient (REF) | payer MEDICARE, OTHER ==
[2017-12-22 17:39] LABS: INR 1.02; PROTHROMBIN TIME 13.5 SECONDS (12.1-14.4)
== END ==
LOC: M LABDRAW1 16:45
DX: Z51.81 Encounter for therapeutic drug level monitoring (principal); Z79.01 Long term (current) use of anticoagulants; M75.112 Incomplete rotator cuff tear or rupture of left shoulder, not specified as traumatic
CPT/HCPCS: 85610

== ENCOUNTER → 2017-12-31 | Outpatient (CLI) | payer MEDICARE, OTHER ==
[~2017-12-31] MED LIST changes: +LIDOCAINE 1% MDV 20ML VIAL As Ordered; -LIDOCAINE 2% INJ 100 MG/5 ML SDV (FOR ANES.) As Ordered; -PROPOFOL 200 MG/20 ML VIAL As Ordered; +TRIAMCINOLONE ACETONIDE SUSP 40 MG/ML VIAL (J3301) As Ordered; -fentaNYL 100 MCG/2 ML INJECTION (J3010) As Ordered
== END ==
LOC: M RADPRO 12:24
DX: M75.112 Incomplete rotator cuff tear or rupture of left shoulder, not specified as traumatic (principal); M75.102 Unspecified rotator cuff tear or rupture of left shoulder, not specified as traumatic (principal); Z79.01 Long term (current) use of anticoagulants
CPT/HCPCS: 20550

== ENCOUNTER → 2018-02-01 | Outpatient (REF) | payer MEDICARE, OTHER ==
[2018-02-01 12:53] LABS: INR 1.08; PROTHROMBIN TIME 14.1 SECONDS (12.1-14.4)
== END ==
LOC: M LABDRAW1 10:26
DX: M75.112 Incomplete rotator cuff tear or rupture of left shoulder, not specified as traumatic (principal); Z79.01 Long term (current) use of anticoagulants
CPT/HCPCS: 85610

== ENCOUNTER → 2018-02-10 | Outpatient (CLI) | payer MEDICARE, OTHER ==
[~2018-02-10] MED LIST changes: +ATOR1TAB21 PO; +CLIN150C14 PO; +ELIQ5TAB PO; -LIDOCAINE 1% MDV 20ML VIAL As Ordered; +LIDOCAINE 1% MDV 20ML VIAL As Ordered ONE; +LISI-538 PO; +LISI-542 PO; +MAGN64TASA PO; +METRCRM TOP; +MULTCAP PO; +NEXI40CA PO; +NORITATE TOP; +STOO100C PO; -TRIAMCINOLONE ACETONIDE SUSP 40 MG/ML VIAL (J3301) As Ordered; +TRIAMCINOLONE ACETONIDE SUSP 40 MG/ML VIAL (J3301) As Ordered ONE
--- NOTE | 2018-02-10 17:15 | REP ---
ULTRASOUND-GUIDED LEFT BICEPS TENDON SHEATH INJECTION The procedure was performed under the direct supervision of Dr. Keller. The risks and benefits of the procedure were explained to the patient and informed consent was obtained. The left biceps tendon sheath was localized using ultrasound guidance. The skin was prepped and draped in a sterile fashion. 1% lidocaine was used as a local anesthetic. Using ultrasound guidance 822 gauge needle was inserted and advanced into the tendon sheath. 3 ml of a solution containing 2 ml of 1% lidocaine and 1 ml of Kenalog 40 mg injected. The needle was then removed. The patient tolerated the procedure well and there were no immediate complications. After the appropriate amount of monitored convalescence the patient was discharged from the department. Reviewed by BERNARDO Leiva 02/10/2018 04:40 P Electronically Signed by Blayne Keller MD 02/10/2018 05:06 P
== END ==
LOC: M RADPRO 10:40
PROVIDERS: ATTEND Orthopaedic Surgery
DX: M75.112 Incomplete rotator cuff tear or rupture of left shoulder, not specified as traumatic (principal)
CPT/HCPCS: 20611; J3301

== ENCOUNTER → 2018-05-18 | Outpatient (CLI) | payer MEDICARE, OTHER ==
[~2018-05-18] MED LIST changes: -LIDOCAINE 1% MDV 20ML VIAL As Ordered ONE; -TRIAMCINOLONE ACETONIDE SUSP 40 MG/ML VIAL (J3301) As Ordered ONE
--- NOTE | 2018-05-18 13:44 | REP ---
Chest two views HISTORY: Fall Comparison: 07/19/2015 Calcified granulomas are present in the right lung apex. The left lung is clear. Calcified lymph nodes are present in the brianna and mediastinum. The heart is normal in size. The pulmonary vasculature is normal in appearance. The bony structure is intact. A cardiac pacemaker is present. IMPRESSION: No acute disease. Electronically Signed by Filemon Wilcox MD 05/18/2018 01:36 P
--- NOTE | 2018-05-18 14:58 | REP ---
RIGHT SHOULDER, THREE VIEWS: HISTORY: Fall. There is no acute fracture or dislocation. There is mild narrowing of the glenohumeral joint and marked narrowing of the acromioclavicular joint. A calcified granuloma is present in the right lung apex. Calcified lymph nodes are present in the brianna and mediastinum. IMPRESSION: There is no acute fracture or dislocation. Electronically Signed by Filemon Wilcox MD 05/18/2018 03:00 P
== END ==
LOC: M RAD 13:07
PROVIDERS: ATTEND Family Medicine
DX: M25.511 Pain in right shoulder (principal); Z95.0 Presence of cardiac pacemaker; J84.10 Pulmonary fibrosis, unspecified

== ENCOUNTER → 2019-06-07 | Outpatient (CLI) | payer MEDICARE, OTHER ==
[~2019-06-07] MED LIST changes: +METR0.752 TOP; -METRCRM TOP; +MM S100C PO; -STOO100C PO
== END ==
LOC: M LABSMTC 10:03
PROVIDERS: ATTEND Family Medicine
DX: Z11.59 Encounter for screening for other viral diseases (principal); Z20.828 Contact with and (suspected) exposure to other viral communicable diseases

== ENCOUNTER → 2020-01-05 | Outpatient (CLI) | payer MEDICARE, OTHER ==
[~2020-01-05] MED LIST changes: +DEXI60CA2 PO
== END ==
LOC: M LABSMTC 11:42
PROVIDERS: ATTEND Anesthesiology
DX: Z01.818 Encounter for other preprocedural examination (principal); Z20.828 Contact with and (suspected) exposure to other viral communicable diseases
CPT/HCPCS: C9803; U0003

== ENCOUNTER 2020-01-10 09:51 | Day surgery (SDC) | payer MEDICARE, OTHER ==
[~2020-01-10] VITALS: Ht 172.7 cm; Wt 79.4 kg
[~2020-01-10 09:51] MED LIST changes: +LR 1,000 ML IV ONE; +ceFAZolin SOD 2 GM in IV 1 EA IV ONE
[2020-01-10] MEDS ORDERED: ROPIvacaine 0.5% 30ML INJECTION (J2795 PER 1MG) ONE (09:52)
[2020-01-10] MEDS ORDERED: dexameTHASONE 10MG/1ML VIAL PRES.FREE (J1100 PER 1MG) ONE (09:52)
[2020-01-10] MEDS ORDERED: LIDOCAINE 1% MDV 20ML VIAL ONE (09:52)
[2020-01-10] MEDS ORDERED: MIDAZOLAM INJ 2MG/2ML VIAL (J2250 PER 1MG) As Ordered ONE ×2 (12:51→14:36)
[2020-01-10] MEDS ORDERED: fentaNYL 100 MCG/2 ML INJECTION (J3010) As Ordered ONE ×2 (12:51→14:36)
[2020-01-10] MEDS: fentaNYL 100 MCG/2 ML INJECTION (J3010) IV SCH ×2 (13:29→13:34)
[2020-01-10] MEDS: MIDAZOLAM INJ 2MG/2ML VIAL (J2250 PER 1MG) IV SCH ×2 (13:29→13:30)
[2020-01-10] MEDS ORDERED: EPINEPHrine 1MG/ML INJ 30ML MD-VIAL As Ordered ONE (13:57)
[2020-01-10] MEDS ORDERED: LIDOCAINE 1% MDV 20ML VIAL As Ordered ONE (13:57)
[2020-01-10] MEDS ORDERED: ROCURONIUM BROMIDE 50 MG/5 ML VIAL As Ordered ONE (14:36)
[2020-01-10] MEDS ORDERED: LIDOCAINE 2% 100MG/5ML SDV (FOR ANES.) As Ordered ONE (14:36)
[2020-01-10] MEDS ORDERED: propofoL 200 MG/20 ML VIAL As Ordered ONE (14:36)
[2020-01-10] MEDS ORDERED: ONDANSETRON 4MG/2ML VIAL As Ordered ONE (14:36)
[2020-01-10] MEDS ORDERED: dexameTHASONE 4 MG/ML 1ML VIAL (J1100 PER 1MG) As Ordered ONE (14:36)
[2020-01-10] MEDS ORDERED: METOCLOPRAMIDE INJ 10MG/2ML VIAL (J2765 PER 1) As Ordered ONE (14:36)
[2020-01-10] MEDS ORDERED: SUGAMMADEX SODIUM 500 MG/5 ML VIAL (BRIDION) As Ordered ONE (14:36)
[2020-01-10] MEDS ORDERED: ACETAMINOPHEN 1000MG 100ML IV BTL (OFIRMEV) (J0131 PER 10MG) As Ordered ONE (14:37)
[2020-01-10] MEDS ORDERED: ONDANSETRON 4MG/2ML VIAL IV PRN (17:30)
[2020-01-10] MEDS ORDERED: oxyCODONE 5MG TAB PO PRN (17:30)
[2020-01-10] MEDS ORDERED: LR 1,000 ML IV SCH ×2 (17:30)
[2020-01-10] MEDS ORDERED: fentaNYL 100 MCG/2 ML INJECTION (J3010) IV PRN (17:30)
[2020-01-10 18:50] VITALS: BP 172/79
== END 2020-01-10 18:55 | disposition home or self-care (01) ==
LOC: M SDC 09:51
PROVIDERS: ATTEND Orthopaedic Surgery
DX: M75.102 Unspecified rotator cuff tear or rupture of left shoulder, not specified as traumatic (principal); M75.42 Impingement syndrome of left shoulder; M75.21 Bicipital tendinitis, right shoulder; I48.0 Paroxysmal atrial fibrillation; I10 Essential (primary) hypertension; K44.9 Diaphragmatic hernia without obstruction or gangrene; I34.8 Other nonrheumatic mitral valve disorders; I35.8 Other nonrheumatic aortic valve disorders; Z95.3 Presence of xenogenic heart valve; Z95.0 Presence of cardiac pacemaker; Z85.71 Personal history of Hodgkin lymphoma; Z92.21 Personal history of antineoplastic chemotherapy; Z92.3 Personal history of irradiation; Z87.891 Personal history of nicotine dependence; Z79.1 Long term (current) use of non-steroidal anti-inflammatories (NSAID); R94.31 Abnormal electrocardiogram [ECG] [EKG]; Z79.899 Other long term (current) drug therapy; Z91.040 Latex allergy status
CPT/HCPCS: 23430; 29826; 29827; C1713; J0131; J0690; J1100; J2250; J2405; J2765; J2795; J3010

== ENCOUNTER → 2020-02-19 | Outpatient (CLI) | payer SELFPAY ==
[~2020-02-19] MED LIST changes: -LR 1,000 ML IV ONE; -ceFAZolin SOD 2 GM in IV 1 EA IV ONE
== END ==
LOC: M LABSMTC 10:54
PROVIDERS: ATTEND Pediatrics
DX: Z20.828 Contact with and (suspected) exposure to other viral communicable diseases (principal)

== ENCOUNTER → 2020-09-30 | Outpatient (CLI) | payer MEDICARE, OTHER ==
[~2020-09-30] MED LIST changes: -CLIN150C14 PO; +CLIN150C15 PO; -LISI-538 PO; -LISI-542 PO; +LISI-898 PO; +LISI20TA33 PO
--- NOTE | 2020-09-30 14:07 | REP ---
INDICATION: SYNCOPE/COLLAPSE COMPARISON: None. TECHNIQUE: Real-time ultrasound evaluation and duplex Doppler interrogation of the extracranial carotid vasculature is performed. FINDINGS: There is mild to moderate plaquing and narrowing in both carotid bulbs extending into the internal and external carotid arteries. Luminal narrowing is less than 50%. There is no evidence of hemodynamically significant stenosis of either internal carotid artery. Normal flow velocities are seen. The vertebral arteries demonstrate normal direction of flow. RIGHT LEFT Peak systolic velocity ICA 112.2 cm/s 79.8 cm/s End diastolic velocity ICA 29.7 cm/s 22.0 cm/s Peak systolic velocity CCA 98.5 cm/s 115.7cm/s Peak systolic velocity ECA 122.3 cm/s 116.6 cm/s ICA/CCA ratio 1.14 0.69 IMPRESSION: Bilateral luminal narrowing of the internal carotid arteries less than 50%. No evidence of hemodynamically significant stenosis. <Electronically signed by Blayne Keller > 09/30/20 [id number]
== END ==
LOC: M RAD 12:53
PROVIDERS: ATTEND Physician Assistant
DX: R55 Syncope and collapse (principal)

== ENCOUNTER 2021-04-20 09:36 | Emergency (ER) | payer MEDICARE, OTHER ==
[~2021-04-20] VITALS: Ht 172.7 cm; Wt 78.2 kg
[~2021-04-20 09:36] MED LIST changes: -CLIN150C15 PO; +CLIN150C17 PO; +FAMO20TA PO; -LISI-898 PO; +LISI5TAB11 PO; +PRES10CA2 PO; +TRAM50TA2 PO; +VITMTA PO
[2021-04-20] MEDS ORDERED: GI COCKTAIL 50ML BTL(HYOSCYAMINE/MAALOX/LIDOCAINE VISCOUS)(1:3:1) PO ONE (10:00)
[2021-04-20 10:25] LABS: BASO # 0.1 10^3/uL (0.0-0.2); BASO % 0.9 % (0.0-1.0); EOS # 0.2 10^3/uL (0.0-0.5); EOS % 1.8 % (0.0-3.0); HEMOGLOBIN 14.3 g/dl (13.5-17.5); LYMPH # 0.9 10^3/uL (1.5-5.0); LYMPH % 9.3 % (24.0-44.0); MEAN CORPUSCULAR HEMOGLOBIN 30.7 pg (27.0-33.0); MEAN CORPUSCULAR HGB CONC 33.3 g/dl (32.0-36.5); MEAN CORPUSCULAR VOLUME 92.3 fl (80.0-96.0); MONO # 1.3 10^3/uL (0.0-0.8); MONO % 13.3 % (2.0-8.0); NEUTROPHILS # 7.1 10^3/uL (1.5-8.5); NEUTROPHILS % 74.4 % (36.0-66.0); PLATELET COUNT, AUTOMATED 362 10^3/uL (150-450); RED BLOOD COUNT 4.66 10^6/uL (4.30-6.10); WHITE BLOOD COUNT 9.6 10^3/uL (4.0-10.0)
[2021-04-20 10:37] LABS: INR 1.08; PROTHROMBIN TIME 14.4 SECONDS (12.7-14.5)
[2021-04-20 10:55] LABS: CK-MB VALUE MASS 5.3 NG/ML (<3.6); MB/CK RELATIVE INDEX 1.32 (< OR =4)
[2021-04-20 11:15] LABS: ALT/SGPT 41 U/L (12-78); BILIRUBIN,DIRECT 0.1 MG/DL (0.0-0.2); BILIRUBIN,TOTAL 0.4 MG/DL (0.2-1.0); BLOOD UREA NITROGEN 14 MG/DL (7-18); CARBON DIOXIDE LEVEL 25 MEQ/L (21-32); CHLORIDE LEVEL 108 MEQ/L (98-107); CREATININE FOR GFR 0.86 MG/DL (0.70-1.30); GLOMERULAR FILTRATION RATE > 60.0 (>49); GLUCOSE, FASTING 90 MG/DL (70-100); LIPASE 118 U/L (73-393); NT-PRO BNP 354 PG/ML (<125); POTASSIUM SERUM 4.4 MEQ/L (3.5-5.1); SODIUM LEVEL 141 MEQ/L (136-145); TOTAL PROTEIN 6.9 GM/DL (6.4-8.2)
[2021-04-20 12:08] LABS: CK-MB VALUE MASS 5.1 NG/ML (<3.6); MB/CK RELATIVE INDEX 1.37 (< OR =4)
[2021-04-20] MEDS ORDERED: ISOVUE-370 76% 100ML VIAL As Ordered ONE (12:16)
[2021-04-20] MEDS ORDERED: SUCR1SS PO (14:23)
[2021-04-20 14:50] VITALS: BP 147/75
== END 2021-04-20 14:50 | disposition home or self-care (01) ==
LOC: M ED 09:36
DX: R07.9 Chest pain, unspecified (principal); I10 Essential (primary) hypertension; E78.5 Hyperlipidemia, unspecified; K21.9 Gastro-esophageal reflux disease without esophagitis; Z85.71 Personal history of Hodgkin lymphoma; Z92.21 Personal history of antineoplastic chemotherapy; Z79.899 Other long term (current) drug therapy; Z79.01 Long term (current) use of anticoagulants; Z88.1 Allergy status to other antibiotic agents; Z88.8 Allergy status to other drugs, medicaments and biological substances; Z91.040 Latex allergy status
CPT/HCPCS: 36415; 71045; 71275; 80048; 80076; 82550; 82553; 83690; 83880; 84443; 84484; 85025; 85610; 93005; 93041; 94760; 99285; Q9967

== ENCOUNTER → 2021-04-28 | Outpatient (CLI) | payer MEDICARE, OTHER ==
[~2021-04-28] MED LIST changes: +SUCR1SS PO
== END ==
LOC: M LABSMTC 09:31
PROVIDERS: ATTEND Anesthesiology
DX: Z01.818 Encounter for other preprocedural examination (principal); Z11.52 Encounter for screening for COVID-19

== ENCOUNTER 2021-05-02 06:14 | Day surgery (SDC) | payer MEDICARE, OTHER ==
[~2021-05-02] VITALS: Ht 172.7 cm; Wt 79.8 kg
[~2021-05-02 06:14] MED LIST changes: +LIDOCAINE 1% MDV 20ML VIAL SQ PRN; +LR 1,000 ML IV ONE; +ceFAZolin SOD 2 GM in IV 1 EA IV ONE
[2021-05-02] MEDS ORDERED: DESFLURANE 240 ML INHALANT As Ordered ONE (06:58)
[2021-05-02] MEDS ORDERED: ROCURONIUM BROMIDE 50 MG/5 ML VIAL As Ordered ONE (07:09)
[2021-05-02] MEDS ORDERED: MIDAZOLAM INJ 2MG/2ML VIAL (J2250 PER 1MG) As Ordered ONE (07:09)
[2021-05-02] MEDS ORDERED: fentaNYL 100 MCG/2 ML INJECTION As Ordered ONE (07:09)
[2021-05-02] MEDS ORDERED: LIDOCAINE 2% 100MG/5ML SDV (FOR ANES.) As Ordered ONE (07:09)
[2021-05-02] MEDS ORDERED: dexameTHASONE 4 MG/ML 1ML VIAL (J1100 PER 1MG) As Ordered ONE (07:09)
[2021-05-02] MEDS ORDERED: ONDANSETRON 4MG/2ML VIAL As Ordered ONE (07:09)
[2021-05-02] MEDS ORDERED: propofoL 200 MG/20 ML VIAL As Ordered ONE (07:09)
[2021-05-02] MEDS ORDERED: LIDOCAINE W/EPINEPHRINE 1% 20ML VIAL As Ordered ONE (07:22)
[2021-05-02] MEDS ORDERED: ACETAMINOPHEN 1000MG 100ML IV BTL (OFIRMEV) (J0131 PER 10MG) As Ordered ONE (09:00)
[2021-05-02] MEDS ORDERED: traMADol 50 MG TAB PO PRN (09:40)
[2021-05-02] MEDS ORDERED: NS 1,000 ML IV SCH (09:40)
[2021-05-02] MEDS ORDERED: ONDANSETRON 4MG/2ML VIAL IV PRN (09:40)
[2021-05-02] MEDS ORDERED: oxyCODONE 5MG TAB PO PRN (09:40)
[2021-05-02] MEDS ORDERED: fentaNYL 100 MCG/2 ML INJECTION IV PRN (09:40)
[2021-05-02] MEDS ORDERED: METOCLOPRAMIDE INJ 10MG/2ML VIAL (J2765 PER 1) IV PRN (09:40)
[2021-05-02] MEDS ORDERED: LR 1,000 ML IV SCH (09:40)
[2021-05-02 10:45] VITALS: BP 130/64
== END 2021-05-02 10:50 | disposition home or self-care (01) ==
LOC: M SDC 06:14
PROVIDERS: ATTEND Surgery
DX: K40.90 Unilateral inguinal hernia, without obstruction or gangrene, not specified as recurrent (principal); I10 Essential (primary) hypertension; I47.9 Paroxysmal tachycardia, unspecified; E78.00 Pure hypercholesterolemia, unspecified; K21.9 Gastro-esophageal reflux disease without esophagitis; Z85.71 Personal history of Hodgkin lymphoma; Z95.0 Presence of cardiac pacemaker; Z79.899 Other long term (current) drug therapy; Z79.01 Long term (current) use of anticoagulants; Z88.1 Allergy status to other antibiotic agents; Z88.8 Allergy status to other drugs, medicaments and biological substances; Z91.040 Latex allergy status; Z87.891 Personal history of nicotine dependence
CPT/HCPCS: 49650; C1781; J0131; J0690; J1100; J2250; J2405; J3010; S2900

== ENCOUNTER → 2021-09-17 | Outpatient (CLI) | payer MEDICARE, OTHER ==
[~2021-09-17] MED LIST changes: -LIDOCAINE 1% MDV 20ML VIAL SQ PRN; -LR 1,000 ML IV ONE; -ceFAZolin SOD 2 GM in IV 1 EA IV ONE
== END ==
LOC: M WUC 13:56
PROVIDERS: ATTEND Physician Assistant Medical
DX: M25.562 Pain in left knee (principal)

== ENCOUNTER → 2021-10-21 | Outpatient (CLI) | payer MEDICARE, OTHER ==
[~2021-10-21] MED LIST changes: +METHACHOLINE KIT (J7674) INH ONE
== END ==
LOC: M CARPUL 10:36
PROVIDERS: ATTEND Physician Assistant
DX: R06.00 Dyspnea, unspecified (principal)
CPT/HCPCS: 94070; 95070; J7674

== ENCOUNTER → 2022-02-27 | Outpatient (CLI) | payer MEDICARE, OTHER ==
[~2022-02-27] MED LIST changes: +E-Z-GAS II EFFERVESCENT PACKET (SODIUM BICARB./CITRIC ACID/SIMETHICONE) As Ordered ONE; +E-Z-HD 98% w/w 340GM SUSP BTL As Ordered ONE; +E-Z-PAQUE 96% w/w SUSP 176GM BTL As Ordered ONE; -METHACHOLINE KIT (J7674) INH ONE
== END ==
LOC: M RAD 08:06
PROVIDERS: ATTEND Physician Assistant Medical
DX: R07.9 Chest pain, unspecified (principal); K21.9 Gastro-esophageal reflux disease without esophagitis; R10.84 Generalized abdominal pain

== ENCOUNTER 2022-06-16 12:09 | Day surgery (SDC) | payer MEDICARE, OTHER ==
[~2022-06-16] VITALS: Ht 172.7 cm; Wt 73.1 kg
[~2022-06-16 12:09] MED LIST changes: -E-Z-GAS II EFFERVESCENT PACKET (SODIUM BICARB./CITRIC ACID/SIMETHICONE) As Ordered ONE; -E-Z-HD 98% w/w 340GM SUSP BTL As Ordered ONE; -E-Z-PAQUE 96% w/w SUSP 176GM BTL As Ordered ONE; +GABA-282 PO; +METR0.7526 TOP; +TRAM37.53 PO
[2022-06-16] MEDS ORDERED: LIDOCAINE 2% 100MG/5ML SDV (FOR ANES.) As Ordered ONE (13:42)
[2022-06-16] MEDS ORDERED: propofoL 200 MG/20 ML VIAL As Ordered ONE (13:42)
[2022-06-16] MEDS ORDERED: fentaNYL 100 MCG/2 ML INJECTION As Ordered ONE (13:42)
[2022-06-16 14:50] VITALS: BP 138/85
== END 2022-06-16 15:04 | disposition home or self-care (01) ==
LOC: M OPP 12:09
PROVIDERS: ATTEND Internal Medicine Gastroenterology
DX: D12.5 Benign neoplasm of sigmoid colon (principal); K44.9 Diaphragmatic hernia without obstruction or gangrene; R10.9 Unspecified abdominal pain; K57.30 Diverticulosis of large intestine without perforation or abscess without bleeding; K64.8 Other hemorrhoids; Z86.010 Personal history of colon polyps; R07.9 Chest pain, unspecified
CPT/HCPCS: 43235; 45385; 88305; J3010

== ENCOUNTER → 2022-07-29 | Outpatient (CLI) | payer MEDICARE, OTHER ==
[2022-07-29 12:20] LABS: PLATELET COUNT, AUTOMATED 392 10^3/uL (150-450)
[2022-07-29 12:31] LABS: INR 1.11; PROTHROMBIN TIME 14.5 SECONDS (12.5-14.5)
[2022-07-29 12:32] LABS: PARTIAL THROMBOPLASTIN TIME 32.1 SECONDS (24.8-34.2)
== END ==
LOC: M LAB 11:09
PROVIDERS: ATTEND Physician Assistant Surgical
DX: Z01.818 Encounter for other preprocedural examination (principal)

== ENCOUNTER 2022-08-11 07:47 | Observation (INO) | payer MEDICARE, OTHER ==
[~2022-08-11] VITALS: Ht 172.7 cm; Wt 79.7 kg
[2022-08-11] MEDS ORDERED: lisinopriL 5 MG TAB PO ONE (09:20)
[2022-08-11 09:46] LABS: BASO # 0.1 10^3/uL (0.0-0.2); BASO % 0.6 % (0.0-1.0); EOS # 0.1 10^3/uL (0.0-0.5); EOS % 0.7 % (0.0-3.0); HEMATOCRIT 42.6 % (42.0-52.0); LYMPH # 0.6 10^3/uL (1.5-5.0); LYMPH % 5.1 % (24.0-44.0); MEAN CORPUSCULAR HEMOGLOBIN 29.7 pg (27.0-33.0); MEAN CORPUSCULAR HGB CONC 32.9 g/dl (32.0-36.5); MEAN CORPUSCULAR VOLUME 90.4 fl (80.0-96.0); MONO # 1.2 10^3/uL (0.0-0.8); MONO % 9.4 % (2.0-8.0); NEUTROPHILS # 10.4 10^3/uL (1.5-8.5); NEUTROPHILS % 83.9 % (36.0-66.0); PLATELET COUNT, AUTOMATED 408 10^3/uL (150-450); RED BLOOD COUNT 4.71 10^6/uL (4.30-6.10); WHITE BLOOD COUNT 12.4 10^3/uL (4.0-10.0)
[2022-08-11 09:55] LABS: INR 1.13; PROTHROMBIN TIME 14.7 SECONDS (12.5-14.5)
[2022-08-11 09:56] LABS: PARTIAL THROMBOPLASTIN TIME 26.3 SECONDS (24.8-34.2)
[2022-08-11 10:13] LABS: CK-MB VALUE MASS 5.3 NG/ML (<3.6)
[2022-08-11 10:16] LABS: BLOOD UREA NITROGEN 14 MG/DL (9-23); CALCIUM LEVEL 8.7 MG/DL (8.3-10.6); CARBON DIOXIDE LEVEL 26 MMOL/L (20-31); CHLORIDE LEVEL 107 MMOL/L (98-107); CREATININE FOR GFR 0.66 MG/DL (0.70-1.30); GLOMERULAR FILTRATION RATE > 60.0 (>42); GLUCOSE, FASTING 100 MG/DL (74-106); POTASSIUM SERUM 4.7 MMOL/L (3.5-5.1); SODIUM LEVEL 142 MMOL/L (136-145)
[2022-08-11 10:18] LABS: RSV AMPLIFICATION NEGATIVE (NEGATIVE)
[2022-08-11 10:19] LABS: CPK CREATINE PHOSPHOKINASE 307 U/L (46-171); MB/CK RELATIVE INDEX 1.72 (< OR =4)
[2022-08-11] MEDS ORDERED: predniSONE 20 MG TAB PO ONE (11:30)
[2022-08-11] MEDS ORDERED: MIRA3350 PO (13:45)
[2022-08-11] MEDS ORDERED: ACET-907 PO (13:45)
[2022-08-11] MEDS ORDERED: FAMO20TA PO (13:45)
[2022-08-11] MEDS ORDERED: HOME MED LIST COMPLETE! XX SCH (13:50)
[2022-08-11] MEDS ORDERED: FAMOTIDINE 20 MG TAB PO PRN (14:30)
[2022-08-11] MEDS ORDERED: ACETAMINOPHEN TAB 650MG DOSE (2X325MG) PO PRN (14:30)
[2022-08-11] MEDS ORDERED: MIRALAX *UNIT DOSE* 17GM PACKET PO PRN (14:30)
[2022-08-11] MEDS ORDERED: ULTRACET TAB PO PRN (14:30)
[2022-08-11 15:50] VITALS: BP 150/86; TEMP 98.6; O2SAT 94
[2022-08-11 15:59] LABS: PROTHROMBIN TIME 13.4 SECONDS (12.5-14.5)
[2022-08-11] MEDS: MULTIVITAMINS/MINERALS THERAP 1 TAB PO SCH (16:16)
[2022-08-11] MEDS: PANTOPRAZOLE 40MG TAB (PROTONIX) PO SCH (16:16)
[2022-08-11] MEDS: ATORVASTATIN 20 MG TAB PO SCH (16:16)
[2022-08-11 19:29] VITALS: BP 105/58; TEMP 98.6; O2SAT 93
[2022-08-11] MEDS: GABAPENTIN 300 MG CAP PO SCH (21:30)
[2022-08-11] MEDS: DOCUSATE SODIUM 100MG CAPSULE PO SCH (21:30)
[2022-08-11] MEDS: APIXABAN 5 MG TAB (ELIQUIS) PO SCH (21:30)
[2022-08-12 05:46] VITALS: BP 108/68; TEMP 97.9; O2SAT 95
[2022-08-12 06:31] LABS: HEMATOCRIT 39.7 % (42.0-52.0); HEMOGLOBIN 13.1 g/dl (13.5-17.5); MEAN CORPUSCULAR VOLUME 91.1 fl (80.0-96.0); PLATELET COUNT, AUTOMATED 399 10^3/uL (150-450); RED BLOOD COUNT 4.36 10^6/uL (4.30-6.10)
[2022-08-12 06:45] LABS: ALBUMIN 3.4 G/DL (3.2-5.2); ALKALINE PHOSPHATASE 74 U/L (46-116); ALT/SGPT 31 U/L (7.0-40); AST/SGOT 21 U/L (<34); BILIRUBIN,TOTAL 0.9 MG/DL (0.3-1.2); BLOOD UREA NITROGEN 18 MG/DL (9-23); CALCIUM LEVEL 9.2 MG/DL (8.3-10.6); CARBON DIOXIDE LEVEL 25 MMOL/L (20-31); CHLORIDE LEVEL 106 MMOL/L (98-107); CREATININE FOR GFR 0.67 MG/DL (0.70-1.30); GLOMERULAR FILTRATION RATE > 60.0 (>42); GLUCOSE, FASTING 96 MG/DL (74-106); POTASSIUM SERUM 4.2 MMOL/L (3.5-5.1); SODIUM LEVEL 139 MMOL/L (136-145)
[2022-08-12] MEDS: DOCUSATE SODIUM 100MG CAPSULE PO SCH (08:21)
[2022-08-12] MEDS: ATORVASTATIN 20 MG TAB PO SCH (08:21)
[2022-08-12] MEDS: GABAPENTIN 300 MG CAP PO SCH (08:21)
[2022-08-12] MEDS: MULTIVITAMINS/MINERALS THERAP 1 TAB PO SCH (08:22)
[2022-08-12] MEDS: PANTOPRAZOLE 40MG TAB (PROTONIX) PO SCH (08:22)
[2022-08-12] MEDS: APIXABAN 5 MG TAB (ELIQUIS) PO SCH (08:22)
[2022-08-12 08:25] VITALS: BP 124/83
[2022-08-12] MEDS ORDERED: lisinopriL 5 MG TAB PO SCH (09:00)
[2022-08-12] MEDS ORDERED: predniSONE 20 MG TAB PO SCH (11:15)
[2022-08-12] MEDS ORDERED: MECL-86 PO (11:16)
[2022-08-12] MEDS ORDERED: PRED20TA PO (11:16)
== END 2022-08-12 13:19 | disposition home health service (06) ==
LOC: EDBD 07:47 → M ED 07:47 → M ED INP 14:29 → ENRESERV 14:57 → M MSPAV 15:46
PROVIDERS: ADMIT Internal Medicine; ATTEND Internal Medicine
DX: R42 Dizziness and giddiness (principal); R26.81 Unsteadiness on feet; I48.91 Unspecified atrial fibrillation; I44.2 Atrioventricular block, complete; Z95.0 Presence of cardiac pacemaker; I10 Essential (primary) hypertension; E78.5 Hyperlipidemia, unspecified; C81.90 Hodgkin lymphoma, unspecified, unspecified site; M54.50 Low back pain, unspecified; G89.29 Other chronic pain; K21.9 Gastro-esophageal reflux disease without esophagitis; L71.9 Rosacea, unspecified; K44.9 Diaphragmatic hernia without obstruction or gangrene; H55.00 Unspecified nystagmus; I67.82 Cerebral ischemia; G31.1 Senile degeneration of brain, not elsewhere classified; G43.709 Chronic migraine without aura, not intractable, without status migrainosus; G43.B0 Ophthalmoplegic migraine, not intractable; Z87.891 Personal history of nicotine dependence; Z88.1 Allergy status to other antibiotic agents; Z88.8 Allergy status to other drugs, medicaments and biological substances; Z91.040 Latex allergy status; Z79.899 Other long term (current) drug therapy; Z79.01 Long term (current) use of anticoagulants
CPT/HCPCS: 36415; 70450; 71045; 80047; 80048; 80053; 82550; 82553; 84484; 85025; 85027; 85610; 85730; 87631; 93005; 93041; 94760; 97112; 97116; 97162; 99285; G0378; J7512

== ENCOUNTER 2022-10-25 14:36 | Emergency (ER) | payer MEDICARE, OTHER ==
[~2022-10-25] VITALS: Ht 172.7 cm; Wt 75.0 kg
[~2022-10-25 14:36] MED LIST changes: +ACET-907 PO; +MECL-86 PO; +MIRA3350 PO; +PRED20TA PO
[2022-10-25] MEDS ORDERED: NS 1,000 ML IV ONE (15:35)
[2022-10-25 15:49] LABS: BASO % 0.2 % (0.0-1.0); EOS # 0.1 10^3/uL (0.0-0.5); EOS % 0.5 % (0.0-3.0); HEMOGLOBIN 12.7 g/dl (13.5-17.5); LYMPH # 0.4 10^3/uL (1.5-5.0); MEAN CORPUSCULAR HEMOGLOBIN 29.3 pg (27.0-33.0); MEAN CORPUSCULAR HGB CONC 32.6 g/dl (32.0-36.5); MEAN CORPUSCULAR VOLUME 89.9 fl (80.0-96.0); MONO # 0.9 10^3/uL (0.0-0.8); MONO % 4.6 % (2.0-8.0); NEUTROPHILS # 17.1 10^3/uL (1.5-8.5); NEUTROPHILS % 91.9 % (36.0-66.0); PLATELET COUNT, AUTOMATED 330 10^3/uL (150-450); RED BLOOD COUNT 4.34 10^6/uL (4.30-6.10); WHITE BLOOD COUNT 18.6 10^3/uL (4.0-10.0)
[2022-10-25 16:11] LABS: CK-MB VALUE MASS 4.6 NG/ML (<3.6)
[2022-10-25 16:13] LABS: MB/CK RELATIVE INDEX 3.19 (< OR =4)
[2022-10-25 16:14] LABS: INR 2.31; PROTHROMBIN TIME 24.8 SECONDS (12.5-14.5)
[2022-10-25 16:20] LABS: RSV AMPLIFICATION NEGATIVE (NEGATIVE)
[2022-10-25 17:12] LABS: ALBUMIN 2.7 G/DL (3.2-5.2); ALKALINE PHOSPHATASE 250 U/L (46-116); ALT/SGPT 164 U/L (7.0-40); AST/SGOT 143 U/L (<34); BILIRUBIN,DIRECT 1.7 MG/DL (<0.4); BILIRUBIN,TOTAL 2.1 MG/DL (0.3-1.2); BLOOD UREA NITROGEN 44 MG/DL (9-23); CALCIUM LEVEL 8.2 MG/DL (8.3-10.6); CARBON DIOXIDE LEVEL 22 MMOL/L (20-31); CHLORIDE LEVEL 104 MMOL/L (98-107); CK-MB VALUE MASS 4.3 NG/ML (<3.6); CREATININE FOR GFR 2.36 MG/DL (0.70-1.30); GLOMERULAR FILTRATION RATE 29.2 (>42); GLUCOSE, FASTING 112 MG/DL (74-106); POTASSIUM SERUM 4.4 MMOL/L (3.5-5.1); SODIUM LEVEL 135 MMOL/L (136-145)
[2022-10-25 17:24] LABS: PROCALCITONIN 18.58 ng/ml
[2022-10-25 17:30] LABS: CPK CREATINE PHOSPHOKINASE 128 U/L (46-171); MB/CK RELATIVE INDEX 3.35 (< OR =4)
[2022-10-25] MEDS ORDERED: PIPERACILLIN/TAZOBACTAM SOD 4.5 GM in D5W MINI-BAG PLUS 50 ML IV ONE (17:45)
[2022-10-25 19:08] LABS: HEPATITIS C VIRUS ABY INDEX 0.12 INDEX (<0.8)
[2022-10-25 19:09] LABS: HEPATITIS B CORE ANTIBODY IGM NEGATIVE (NEGATIVE)
[2022-10-25] MEDS ORDERED: NS 1,250 ML in IV 1 EA IV ONE (19:25)
[2022-10-25] MEDS ORDERED: LIDOCAINE 2% 5ML JELLY UROJET TOP ONE (20:20)
[2022-10-25] MEDS ORDERED: HOME MED LIST COMPLETE! XX SCH (22:05)
[2022-10-25 23:15] LABS: ALBUMIN 2.6 G/DL (3.2-5.2); BILIRUBIN,DIRECT 1.7 MG/DL (<0.4); BILIRUBIN,TOTAL 2.1 MG/DL (0.3-1.2); TOTAL PROTEIN 5.7 G/DL (5.7-8.2)
[2022-10-25] MEDS ORDERED: VANCOMYCIN HCL 1,500 MG in NS 250 ML IV ONE (23:35)
[2022-10-25] MEDS ORDERED: NS 1,000 ML IV SCH (23:35)
[2022-10-26] MEDS ORDERED: VANCOMYCIN HCL 750 MG, VIAL MATE ADAPTER 1 EACH in D5W 250 ML IV ONE ×6
[2022-10-26 07:45] VITALS: BP 126/90; TEMP 98.9; O2SAT 95
== END 2022-10-26 07:45 | disposition short-term general hospital (02) ==
LOC: M ED 14:36
DX: J18.9 Pneumonia, unspecified organism (principal); A41.9 Sepsis, unspecified organism; K83.09 Other cholangitis; E86.0 Dehydration; N39.0 Urinary tract infection, site not specified; I10 Essential (primary) hypertension; E78.5 Hyperlipidemia, unspecified; Z95.0 Presence of cardiac pacemaker; Z79.01 Long term (current) use of anticoagulants
CPT/HCPCS: 70450; 71045; 71250; 74176; 76705; 80047; 80048; 80076; 81001; 82550; 82553; 83605; 84145; 84484; 85025; 85610; 85730; 86705; 86709; 86803; 86850; 86900; 86901; 87040; 87086; 87340; 87631; 93005; 93041; 94760; 96361; 96365; 96367; 99285; J2543

== ENCOUNTER → 2022-11-13 | Outpatient (REF) | payer MEDICARE, OTHER | LOC: M LAB REF 16:19 | PROVIDERS: ATTEND Family Medicine | DX: I50.32 Chronic diastolic (congestive) heart failure (principal) ==

== ENCOUNTER → 2022-12-31 | Outpatient (CLI) | payer MEDICARE, OTHER ==
[2022-12-31 16:29] LABS: BLOOD UREA NITROGEN 15 MG/DL (9-23); CALCIUM LEVEL 9.6 MG/DL (8.3-10.6); CARBON DIOXIDE LEVEL 28 MMOL/L (20-31); CHLORIDE LEVEL 104 MMOL/L (98-107); GLOMERULAR FILTRATION RATE > 60.0 (>42); GLUCOSE, FASTING 78 MG/DL (74-106); POTASSIUM SERUM 5.2 MMOL/L (3.5-5.1); SODIUM LEVEL 138 MMOL/L (136-145)
== END ==
LOC: M PLALAB 12:25
PROVIDERS: ATTEND Physician Assistant
DX: I50.32 Chronic diastolic (congestive) heart failure (principal)

== ENCOUNTER → 2023-01-18 | Outpatient (CLI) | payer MEDICARE, OTHER | LOC: M SLEEP HO 10:28 | PROVIDERS: ATTEND Physician Assistant | DX: I27.29 Other secondary pulmonary hypertension (principal); G47.9 Sleep disorder, unspecified ==

== ENCOUNTER → 2023-02-16 | Outpatient (CLI) | payer MEDICARE, OTHER | LOC: M EKG 08:59 | PROVIDERS: ATTEND Physician Assistant | DX: I48.0 Paroxysmal atrial fibrillation (principal) ==

== ENCOUNTER → 2023-04-01 | Outpatient (CLI) | payer MEDICARE, OTHER ==
[2023-04-01 14:10] LABS: BLOOD UREA NITROGEN 21 MG/DL (9-23); CALCIUM LEVEL 9.2 MG/DL (8.3-10.6); CARBON DIOXIDE LEVEL 30 MMOL/L (20-31); CHLORIDE LEVEL 106 MMOL/L (98-107); CREATININE FOR GFR 0.84 MG/DL (0.70-1.30); GLOMERULAR FILTRATION RATE > 60.0 (>42); GLUCOSE, FASTING 70 MG/DL (74-106); POTASSIUM SERUM 4.6 MMOL/L (3.5-5.1); SODIUM LEVEL 141 MMOL/L (136-145)
[2023-04-01 14:11] LABS: HEMATOCRIT 39.8 % (42.0-52.0); HEMOGLOBIN 12.7 g/dl (13.5-17.5); MEAN CORPUSCULAR HEMOGLOBIN 27.5 pg (27.0-33.0); MEAN CORPUSCULAR HGB CONC 31.9 g/dl (32.0-36.5); MEAN CORPUSCULAR VOLUME 86.3 fl (80.0-96.0); PLATELET COUNT, AUTOMATED 389 10^3/uL (150-450); RED BLOOD COUNT 4.61 10^6/uL (4.30-6.10); WHITE BLOOD COUNT 7.6 10^3/uL (4.0-10.0)
== END ==
LOC: M PLALAB 10:13
PROVIDERS: ATTEND Physician Assistant
DX: I50.32 Chronic diastolic (congestive) heart failure (principal); I48.0 Paroxysmal atrial fibrillation

== ENCOUNTER → 2023-06-29 | Outpatient (CLI) | payer MEDICARE, OTHER | LOC: M WHC 13:11 | PROVIDERS: ATTEND Family Medicine | DX: N64.4 Mastodynia (principal) | CPT/HCPCS: 77066; G0279 ==

== ENCOUNTER → 2023-07-05 | Outpatient (CLI) | payer MEDICARE, OTHER ==
[2023-07-05 12:30] LABS: BLOOD UREA NITROGEN 28 MG/DL (9-23); CALCIUM LEVEL 9.7 MG/DL (8.3-10.6); CARBON DIOXIDE LEVEL 28 MMOL/L (20-31); CHLORIDE LEVEL 107 MMOL/L (98-107); CREATININE FOR GFR 0.91 MG/DL (0.70-1.30); GLOMERULAR FILTRATION RATE > 60.0 (>42); GLUCOSE, FASTING 87 MG/DL (74-106); HEMATOCRIT 40.3 % (42.0-52.0); HEMOGLOBIN 12.9 g/dl (13.5-17.5); MEAN CORPUSCULAR HEMOGLOBIN 28.4 pg (27.0-33.0); MEAN CORPUSCULAR VOLUME 88.6 fl (80.0-96.0); PLATELET COUNT, AUTOMATED 404 10^3/uL (150-450); POTASSIUM SERUM 4.7 MMOL/L (3.5-5.1); RED BLOOD COUNT 4.55 10^6/uL (4.30-6.10); SODIUM LEVEL 143 MMOL/L (136-145); WHITE BLOOD COUNT 8.6 10^3/uL (4.0-10.0)
== END ==
LOC: M PLALAB 08:27
PROVIDERS: ATTEND Physician Assistant
DX: I48.0 Paroxysmal atrial fibrillation (principal)

== ENCOUNTER → 2023-08-04 | Outpatient (CLI) | payer MEDICARE, OTHER | LOC: M WUC 08:45 | PROVIDERS: ATTEND Internal Medicine | DX: M25.572 Pain in left ankle and joints of left foot (principal); M79.672 Pain in left foot ==

== ENCOUNTER → 2023-08-20 | Outpatient (REF) | payer MEDICARE, OTHER ==
[2023-08-24 12:36] LABS: FERRITIN 20.4 NG/ML (10.5-307.3); FOLATE > 24.0 NG/ML (>5.4)
[2023-08-24 12:37] LABS: VITAMIN B12 LEVEL 457 PG/ML (211-911)
== END ==
LOC: M LAB REF 11:58
PROVIDERS: ATTEND Family Medicine
DX: D64.9 Anemia, unspecified (principal)

== ENCOUNTER 2023-09-27 22:44 | Emergency (ER) | payer MEDICARE, OTHER ==
[~2023-09-27] VITALS: Ht 172.7 cm; Wt 78.9 kg
[~2023-09-27 22:44] MED LIST changes: +TRAM-443 PO; -TRAM37.53 PO
[2023-09-27 23:39] LABS: BASO # 0.1 10^3/uL (0.0-0.2); EOS # 0.3 10^3/uL (0.0-0.5); EOS % 4.4 % (0.0-3.0); HEMATOCRIT 37.6 % (42.0-52.0); HEMOGLOBIN 12.2 g/dl (13.5-17.5); LYMPH # 0.8 10^3/uL (1.5-5.0); LYMPH % 11.9 % (24.0-44.0); MEAN CORPUSCULAR HEMOGLOBIN 28.6 pg (27.0-33.0); MEAN CORPUSCULAR HGB CONC 32.4 g/dl (32.0-36.5); MEAN CORPUSCULAR VOLUME 88.1 fl (80.0-96.0); MONO # 1.1 10^3/uL (0.0-0.8); MONO % 15.9 % (2.0-8.0); NEUTROPHILS # 4.6 10^3/uL (1.5-8.5); NEUTROPHILS % 66.7 % (36.0-66.0); PLATELET COUNT, AUTOMATED 364 10^3/uL (150-450); RED BLOOD COUNT 4.27 10^6/uL (4.30-6.10); WHITE BLOOD COUNT 6.9 10^3/uL (4.0-10.0)
[2023-09-27 23:53] LABS: INR 1.13; PROTHROMBIN TIME 14.2 SECONDS (12.5-14.5)
[2023-09-28 00:10] LABS: BLOOD UREA NITROGEN 28 MG/DL (9-23); CALCIUM LEVEL 8.9 MG/DL (8.3-10.6); CARBON DIOXIDE LEVEL 26 MMOL/L (20-31); CHLORIDE LEVEL 109 MMOL/L (98-107); CK-MB VALUE MASS 10.9 NG/ML (<3.6); CPK CREATINE PHOSPHOKINASE 671 U/L (46-171); CREATININE FOR GFR 0.81 MG/DL (0.70-1.30); GLOMERULAR FILTRATION RATE > 60.0 (>42); GLUCOSE, FASTING 106 MG/DL (74-106); MB/CK RELATIVE INDEX 1.62 (< OR =4); POTASSIUM SERUM 4.1 MMOL/L (3.5-5.1); SODIUM LEVEL 141 MMOL/L (136-145)
[2023-09-28] MEDS: NS 1,000 ML IV ONE (00:45)
[2023-09-28 02:13] LABS: CK-MB VALUE MASS 9.3 NG/ML (<3.6)
[2023-09-28 02:19] LABS: MB/CK RELATIVE INDEX 1.58 (< OR =4)
[2023-09-28 03:15] VITALS: BP 142/74; O2SAT 97
[2023-09-28 03:37] VITALS: TEMP 97.9
== END 2023-09-28 03:44 | disposition home or self-care (01) ==
LOC: M ED 22:44
DX: R55 Syncope and collapse (principal); E86.0 Dehydration; I10 Essential (primary) hypertension; K21.9 Gastro-esophageal reflux disease without esophagitis; F10.10 Alcohol abuse, uncomplicated; Z86.79 Personal history of other diseases of the circulatory system; Z95.0 Presence of cardiac pacemaker; Z91.040 Latex allergy status; Z88.1 Allergy status to other antibiotic agents; Z88.8 Allergy status to other drugs, medicaments and biological substances; Z79.01 Long term (current) use of anticoagulants; Z79.02 Long term (current) use of antithrombotics/antiplatelets; Z79.811 Long term (current) use of aromatase inhibitors; Z79.899 Other long term (current) drug therapy

== ENCOUNTER → 2023-10-11 | Outpatient (CLI) | payer MEDICARE, OTHER ==
[~2023-10-11] MED LIST changes: -TRAM-443 PO; +TRAM1TAB42 PO
[2023-10-11 10:54] LABS: HEMATOCRIT 40.9 % (42.0-52.0); MEAN CORPUSCULAR HEMOGLOBIN 28.4 pg (27.0-33.0); MEAN CORPUSCULAR HGB CONC 31.8 g/dl (32.0-36.5); MEAN CORPUSCULAR VOLUME 89.5 fl (80.0-96.0); PLATELET COUNT, AUTOMATED 438 10^3/uL (150-450); RED BLOOD COUNT 4.57 10^6/uL (4.30-6.10); WHITE BLOOD COUNT 7.4 10^3/uL (4.0-10.0)
[2023-10-11 11:21] LABS: ALKALINE PHOSPHATASE 100 U/L (46-116); ALT/SGPT 30 U/L (7.0-40); AST/SGOT 26 U/L (<34); BILIRUBIN,TOTAL 0.6 MG/DL (0.3-1.2); BLOOD UREA NITROGEN 20 MG/DL (9-23); CALCIUM LEVEL 9.4 MG/DL (8.3-10.6); CARBON DIOXIDE LEVEL 30 MMOL/L (20-31); CHLORIDE LEVEL 106 MMOL/L (98-107); CHOLESTEROL LEVEL 172 MG/DL (<200); CHOLESTEROL RISK RATIO 4.11 (<5); CREATININE FOR GFR 0.87 MG/DL (0.70-1.30); GLOMERULAR FILTRATION RATE > 60.0 (>42); GLUCOSE, FASTING 80 MG/DL (74-106); HDL CHOLESTEROL 41.8 MG/DL (>40); LDL CHOLESTEROL 94.4 MG/DL (<100); MAGNESIUM LEVEL 2.2 MG/DL (1.8-2.4); NON-HDL-C 130.2 MG/DL; POTASSIUM SERUM 5.2 MMOL/L (3.5-5.1); SODIUM LEVEL 139 MMOL/L (136-145); TOTAL PROTEIN 7.1 G/DL (5.7-8.2); TRIGLYCERIDES LEVEL 179 MG/DL (<150)
== END ==
LOC: M PLALAB 08:51
PROVIDERS: ATTEND Physician Assistant
DX: I50.32 Chronic diastolic (congestive) heart failure (principal); I48.0 Paroxysmal atrial fibrillation; E78.00 Pure hypercholesterolemia, unspecified; Z79.01 Long term (current) use of anticoagulants

== ENCOUNTER 2023-12-19 11:09 | Inpatient (IN) | payer MEDICARE, OTHER ==
[~2023-12-19] VITALS: Ht 172.7 cm; Wt 78.6 kg
[2023-12-19] VITALS (13 sets, daily range): BP systolic 107–138; BP diastolic 54–74; TEMP 97.7–98.8; O2SAT 93–99
[2023-12-19] MEDS: LIDOCAINE 1% MDV 20ML VIAL SC ONE
[~2023-12-19 11:09] MED LIST changes: +GABA-1172 PO; -GABA-282 PO
[2023-12-19 11:59] LABS: BASO # 0.1 10^3/uL (0.0-0.2); BASO % 0.4 % (0.0-1.0); EOS # 0.1 10^3/uL (0.0-0.5); EOS % 0.9 % (0.0-3.0); HEMATOCRIT 38.5 % (42.0-52.0); HEMOGLOBIN 12.6 g/dl (13.5-17.5); LYMPH # 0.6 10^3/uL (1.5-5.0); LYMPH % 5.1 % (24.0-44.0); MEAN CORPUSCULAR HGB CONC 32.7 g/dl (32.0-36.5); MEAN CORPUSCULAR VOLUME 88.5 fl (80.0-96.0); MONO # 0.9 10^3/uL (0.0-0.8); MONO % 7.5 % (2.0-8.0); NEUTROPHILS # 9.7 10^3/uL (1.5-8.5); NEUTROPHILS % 85.8 % (36.0-66.0); PLATELET COUNT, AUTOMATED 374 10^3/uL (150-450); RED BLOOD COUNT 4.35 10^6/uL (4.30-6.10); WHITE BLOOD COUNT 11.3 10^3/uL (4.0-10.0)
[2023-12-19 12:11] LABS: INR 1.35; PARTIAL THROMBOPLASTIN TIME 28.8 SECONDS (24.8-34.2); PROTHROMBIN TIME 16.3 SECONDS (12.5-14.5)
[2023-12-19 12:23] LABS: ETHYL ALCOHOL (ETHANOL) < 0.003 % (0.000-0.010)
[2023-12-19 12:24] LABS: AMYLASE 93 U/L (30-118)
[2023-12-19 12:27] LABS: THYROID STIMULATING HORMONE 2.576 uIU/ML (0.55-4.78)
[2023-12-19 12:32] LABS: ALBUMIN 3.9 G/DL (3.2-5.2); ALKALINE PHOSPHATASE 101 U/L (46-116); ALT/SGPT 32 U/L (7.0-40); AST/SGOT 51 U/L (<34); BILIRUBIN,DIRECT < 0.1 MG/DL (<0.4); BILIRUBIN,TOTAL 0.5 MG/DL (0.3-1.2); CK-MB VALUE MASS 5.8 NG/ML (<3.6); CPK CREATINE PHOSPHOKINASE 411 U/L (46-171); LIPASE 53 U/L (12-53); MB/CK RELATIVE INDEX 1.41 (< OR =4); TOTAL PROTEIN 7.2 G/DL (5.7-8.2)
[2023-12-19] MEDS ORDERED: CARV6.25 PO (12:38)
[2023-12-19] MEDS ORDERED: FURO20TA2 PO (12:38)
[2023-12-19 14:16] LABS: CK-MB VALUE MASS 5.2 NG/ML (<3.6)
[2023-12-19 14:17] LABS: MB/CK RELATIVE INDEX 1.46 (< OR =4)
[2023-12-19 14:49] LABS: BLOOD UREA NITROGEN 27 MG/DL (9-23); CALCIUM LEVEL 9.4 MG/DL (8.3-10.6); CARBON DIOXIDE LEVEL 23 MMOL/L (20-31); CHLORIDE LEVEL 109 MMOL/L (98-107); CREATININE FOR GFR 0.77 MG/DL (0.70-1.30); GLOMERULAR FILTRATION RATE > 60.0 (>42); GLUCOSE, FASTING 111 MG/DL (74-106); MAGNESIUM LEVEL 2.2 MG/DL (1.8-2.4); POTASSIUM SERUM 4.9 MMOL/L (3.5-5.1); SODIUM LEVEL 140 MMOL/L (136-145)
[2023-12-19 15:39] LABS: APPEARANCE, URINE CLEAR (CLEAR); BACTERIA, URINE AUTO NEGATIVE (NEGATIVE); BILIRUBIN, URINE AUTO NEGATIVE (NEGATIVE); BLOOD, URINE BLOOD NEGATIVE (NEGATIVE); COLOR, URINE STRAW (YELLOW); GLUCOSE, URINE (UA) AUTO NEGATIVE (NEGATIVE); KETONE, URINE AUTO NEGATIVE (NEGATIVE); LEUKOCYTE ESTERASE, URINE AUTO NEGATIVE (NEGATIVE); NITRITE, URINE AUTO NEGATIVE (NEGATIVE); PROTEIN, URINE AUTO NEGATIVE (NEGATIVE); RBC, URINE AUTO 0 /HPF (0-3); SPECIFIC GRAVITY URINE AUTO 1.008 (1.002-1.035); SQUAMOUS EPITHELIAL CELL UR AU 0 /HPF (0-6); UROBILINOGEN, URINE AUTO 0.2 mg/dL (0.0-2.0); WBC, URINE AUTO 0 /HPF (0-3)
[2023-12-19 16:00] LABS: AMPHETAMINES LEVEL URINE NEGATIVE (NEGATIVE); BARBITURATES URINE NEGATIVE (NEGATIVE); BENZODIAZEPINES URINE NEGATIVE (NEGATIVE); COCAINE METABOLITE URINE NEGATIVE (NEGATIVE)
[2023-12-19 16:01] LABS: CANNABINOIDS URINE NEGATIVE (NEGATIVE); METHADONE URINE NEGATIVE (NEGATIVE); OPIATES URINE NEGATIVE (NEGATIVE); PHENCYCLIDINE URINE NEGATIVE (NEGATIVE)
[2023-12-19] MEDS ORDERED: MOM 30ML SUSPENSION UDC PO PRN (16:10)
[2023-12-19] MEDS ORDERED: ACETAMINOPHEN 325 MG TAB PO PRN (16:10)
[2023-12-19 16:59] LABS: THYROID STIMULATING HORMONE 2.245 uIU/ML (0.55-4.78)
[2023-12-19] MEDS ORDERED: HOME MED LIST COMPLETE! XX SCH (17:50)
[2023-12-19] MEDS: DOCUSATE SODIUM 100MG CAPSULE PO SCH (19:54)
[2023-12-19] MEDS ORDERED: ATROPINE SULF 1MG/10ML SYRINGE IV PRN (21:10)
[2023-12-19 21:57] LABS: BLOOD UREA NITROGEN 25 MG/DL (9-23); CALCIUM LEVEL 9.4 MG/DL (8.3-10.6); CARBON DIOXIDE LEVEL 26 MMOL/L (20-31); CHLORIDE LEVEL 108 MMOL/L (98-107); CREATININE FOR GFR 0.77 MG/DL (0.70-1.30); GLOMERULAR FILTRATION RATE > 60.0 (>42); GLUCOSE, FASTING 127 MG/DL (74-106); MAGNESIUM LEVEL 2.3 MG/DL (1.8-2.4); SODIUM LEVEL 140 MMOL/L (136-145)
[2023-12-19] MEDS: MIDAZOLAM INJ 2MG/2ML VIAL IV PRN (23:09)
[2023-12-19] MEDS: DOPamine HCL 400 MG in IV 1 EA IV SCH (23:11)
[2023-12-19] MEDS ORDERED: LIDOCAINE 1% MDV 20ML VIAL As Ordered ONE (23:34)
[2023-12-20] VITALS (24 sets, daily range): BP systolic 98–146; BP diastolic 54–69; TEMP 97.6–98.8; O2SAT 91–98
[2023-12-20] MEDS ORDERED: LIDOCAINE 5% (LIDODERM) PATCH TD PRN (01:20)
[2023-12-20 05:14] LABS: HEMATOCRIT 39.4 % (42.0-52.0); HEMOGLOBIN 12.9 g/dl (13.5-17.5); MEAN CORPUSCULAR HEMOGLOBIN 28.9 pg (27.0-33.0); MEAN CORPUSCULAR HGB CONC 32.7 g/dl (32.0-36.5); MEAN CORPUSCULAR VOLUME 88.1 fl (80.0-96.0); PLATELET COUNT, AUTOMATED 410 10^3/uL (150-450); RED BLOOD COUNT 4.47 10^6/uL (4.30-6.10); WHITE BLOOD COUNT 9.9 10^3/uL (4.0-10.0)
[2023-12-20 05:39] LABS: BLOOD UREA NITROGEN 27 MG/DL (9-23); CALCIUM LEVEL 9.6 MG/DL (8.3-10.6); CARBON DIOXIDE LEVEL 26 MMOL/L (20-31); CHLORIDE LEVEL 110 MMOL/L (98-107); CREATININE FOR GFR 0.78 MG/DL (0.70-1.30); GLOMERULAR FILTRATION RATE > 60.0 (>42); GLUCOSE, FASTING 96 MG/DL (74-106); MAGNESIUM LEVEL 2.4 MG/DL (1.8-2.4); POTASSIUM SERUM 4.2 MMOL/L (3.5-5.1); SODIUM LEVEL 141 MMOL/L (136-145)
[2023-12-20] MEDS: LR 1,000 ML IV SCH (06:31)
[2023-12-20] MEDS: ceFAZolin SOD 2 GM in IV 1 EA IV ONE (09:35)
[2023-12-20] MEDS ORDERED: fentaNYL 100 MCG/2 ML INJECTION As Ordered ONE (17:01)
[2023-12-20] MEDS ORDERED: LIDOCAINE 2% 100MG/5ML SDV (FOR ANES.) As Ordered ONE (17:01)
[2023-12-20] MEDS ORDERED: MIDAZOLAM INJ 2MG/2ML VIAL As Ordered ONE (17:01)
[2023-12-20] MEDS ORDERED: propofoL 200 MG/20 ML VIAL As Ordered ONE (17:01)
[2023-12-20] MEDS ORDERED: ONDANSETRON 4MG 2ML VIAL As Ordered ONE (17:01)
[2023-12-20] MEDS: ceFAZolin 2 GM/D5W 50 ML IV BAG As Ordered ONE (17:39)
[2023-12-20] MEDS ORDERED: ACETAMINOPHEN 1000MG 100ML IV BAG As Ordered ONE (17:48)
[2023-12-20] MEDS: ceFAZolin 1GM VIAL As Ordered ONE (17:52)
[2023-12-20] MEDS: LIDOCAINE 1% SDV 30ML VIAL As Ordered ONE (18:00)
[2023-12-20] MEDS ORDERED: fentaNYL 100 MCG/2 ML INJECTION IV PRN (18:20)
[2023-12-20] MEDS ORDERED: HYDROMORPHONE HCL 0.5 MG/ 0.5 ML SYRINGE IV PRN (18:20)
[2023-12-20] MEDS ORDERED: LR 1,000 ML IV SCH (18:20)
[2023-12-20] MEDS ORDERED: ONDANSETRON 4MG 2ML VIAL IV PRN (18:20)
[2023-12-20] MEDS ORDERED: oxyCODONE 5MG TAB PO PRN (18:20)
== END 2023-12-20 19:25 | disposition home or self-care (01) | DRG 259 ==
LOC: M ED 11:09 → M ED INP 16:08 → M MSPAV 17:02 → M PCU 20:53 → M ICU 21:55
PROVIDERS: ADMIT Student in an Organized Health Care Education/Training Program; ATTEND Student in an Organized Health Care Education/Training Program
PROC: 0JPT0PZ Removal of Cardiac Rhythm Related Device from Trunk Subcutaneous Tissue and Fascia, Open Approach (ICD-10-PCS; 2023-12-20)
PROC: 0JH606Z Insertion of Pacemaker, Dual Chamber into Chest Subcutaneous Tissue and Fascia, Open Approach (ICD-10-PCS; principal; 2023-12-20 15:00)
DX: T82.118A Breakdown (mechanical) of other cardiac electronic device, initial encounter (principal); I48.92 Unspecified atrial flutter; I44.2 Atrioventricular block, complete; K86.2 Cyst of pancreas; T82.111A Breakdown (mechanical) of cardiac pulse generator (battery), initial encounter; R55 Syncope and collapse; I48.0 Paroxysmal atrial fibrillation; Z95.3 Presence of xenogenic heart valve; I10 Essential (primary) hypertension; E78.5 Hyperlipidemia, unspecified; K21.9 Gastro-esophageal reflux disease without esophagitis; M54.40 Lumbago with sciatica, unspecified side; N28.1 Cyst of kidney, acquired; I25.2 Old myocardial infarction; G43.909 Migraine, unspecified, not intractable, without status migrainosus; M47.812 Spondylosis without myelopathy or radiculopathy, cervical region; L71.9 Rosacea, unspecified; Y83.1 Surgical operation with implant of artificial internal device as the cause of abnormal reaction of the patient, or of later complication, without mention of misadventure at the time of the procedure; Z88.1 Allergy status to other antibiotic agents; Z79.01 Long term (current) use of anticoagulants; Z79.899 Other long term (current) drug therapy; Z88.0 Allergy status to penicillin; Z92.3 Personal history of irradiation; Z85.79 Personal history of other malignant neoplasms of lymphoid, hematopoietic and related tissues

== ENCOUNTER → 2024-01-07 | Outpatient (CLI) | payer MEDICARE, OTHER ==
[~2024-01-07] MED LIST changes: +CARV6.25 PO; +FURO20TA2 PO
[2024-01-07 12:43] LABS: PLATELET COUNT, AUTOMATED 440 10^3/uL (150-450)
[2024-01-07 13:01] LABS: INR 1.12; PARTIAL THROMBOPLASTIN TIME 32.4 SECONDS (24.8-34.2); PROTHROMBIN TIME 14.7 SECONDS (12.5-14.5)
== END ==
LOC: M PLALAB 10:58
PROVIDERS: ATTEND Physician Assistant Surgical
DX: Z01.818 Encounter for other preprocedural examination (principal); I50.32 Chronic diastolic (congestive) heart failure

== ENCOUNTER → 2024-01-07 | Outpatient (CLI) | payer MEDICARE, OTHER ==
[2024-01-07 12:55] LABS: BLOOD UREA NITROGEN 22 MG/DL (9-23); CALCIUM LEVEL 9.9 MG/DL (8.3-10.6); CARBON DIOXIDE LEVEL 30 MMOL/L (20-31); CHLORIDE LEVEL 105 MMOL/L (98-107); CREATININE FOR GFR 0.93 MG/DL (0.70-1.30); GLOMERULAR FILTRATION RATE > 60.0 (>42); GLUCOSE, FASTING 90 MG/DL (74-106); POTASSIUM SERUM 4.8 MMOL/L (3.5-5.1); SODIUM LEVEL 140 MMOL/L (136-145)
== END ==
LOC: M PLALAB 10:57
PROVIDERS: ATTEND Physician Assistant
DX: I50.32 Chronic diastolic (congestive) heart failure (principal)

== ENCOUNTER → 2024-03-23 | Outpatient (CLI) | payer MEDICARE, OTHER | LOC: M RAD 14:53 | PROVIDERS: ATTEND Nurse Practitioner Family | DX: K40.31 Unilateral inguinal hernia, with obstruction, without gangrene, recurrent (principal) ==

== ENCOUNTER 2024-05-23 13:33 | Day surgery (SDC) | payer MEDICARE, OTHER ==
[~2024-05-23] VITALS: Ht 172.7 cm; Wt 79.9 kg
[~2024-05-23 13:33] MED LIST changes: +THERTAB52 PO
[2024-05-23] MEDS ORDERED: LR 1,000 ML IV SCH ×2 (13:45→17:00)
[2024-05-23] MEDS ORDERED: CLIN150C17 PO (14:06)
[2024-05-23] MEDS ORDERED: LIDOCAINE 2% 100MG/5ML SDV (FOR ANES.) As Ordered ONE (14:13)
[2024-05-23] MEDS ORDERED: propofoL 200 MG/20 ML VIAL As Ordered ONE (14:13)
[2024-05-23] MEDS ORDERED: ACETAMINOPHEN 1000MG/100ML IV BAG As Ordered ONE (14:13)
[2024-05-23] MEDS ORDERED: ROCURONIUM BROMIDE 50MG/5ML VIAL As Ordered ONE (14:17)
[2024-05-23] MEDS ORDERED: KETOROLAC 30 MG/ML 1ML VIAL As Ordered ONE (14:36)
[2024-05-23] MEDS ORDERED: fentaNYL 100 MCG/2 ML INJECTION As Ordered ONE (14:38)
[2024-05-23] MEDS ORDERED: PHENYLephrine 500MCG 5ML (100MCG/ML) SYRINGE As Ordered ONE (15:42)
[2024-05-23] MEDS: ceFAZolin SOD 2 GM IV ONCE IV ONE (15:44)
[2024-05-23] MEDS ORDERED: ONDANSETRON 4MG 2ML VIAL As Ordered ONE (15:54)
[2024-05-23] MEDS ORDERED: SUGAMMADEX SODIUM 500 MG/5 ML VIAL (BRIDION) As Ordered ONE (15:54)
[2024-05-23] MEDS ORDERED: fentaNYL 100 MCG/2 ML INJECTION IV PRN (17:00)
[2024-05-23] MEDS: HYDROMORPHONE HCL 0.5 MG/ 0.5 ML SYRINGE IV PRN (17:19)
[2024-05-23] MEDS: oxyCODONE 5MG TAB PO PRN (17:19)
[2024-05-23] MEDS: ONDANSETRON 4MG 2ML VIAL IV PRN (17:20)
[2024-05-23 18:25] VITALS: BP 178/84; TEMP 97; O2SAT 98
== END 2024-05-23 18:53 | disposition home or self-care (01) ==
LOC: M SDC 13:33
PROVIDERS: ATTEND Surgery
DX: K40.90 Unilateral inguinal hernia, without obstruction or gangrene, not specified as recurrent (principal); D17.6 Benign lipomatous neoplasm of spermatic cord; K66.0 Peritoneal adhesions (postprocedural) (postinfection); I48.91 Unspecified atrial fibrillation; I25.2 Old myocardial infarction; I05.9 Rheumatic mitral valve disease, unspecified; I35.9 Nonrheumatic aortic valve disorder, unspecified; Z95.0 Presence of cardiac pacemaker; Z88.0 Allergy status to penicillin; Z88.3 Allergy status to other anti-infective agents; Z88.8 Allergy status to other drugs, medicaments and biological substances; Z79.899 Other long term (current) drug therapy
CPT/HCPCS: 49650; C1781; J0131; J0665; J0690; J1100; J1171; J1885; J2371; J2405; J3010; S2900

== ENCOUNTER → 2024-07-17 | Outpatient (CLI) | payer MEDICARE, OTHER ==
[2024-07-17 11:43] LABS: HEMATOCRIT 41.5 % (42.0-52.0); HEMOGLOBIN 12.7 g/dl (13.5-17.5); MEAN CORPUSCULAR HEMOGLOBIN 26.7 pg (27.0-33.0); MEAN CORPUSCULAR HGB CONC 30.6 g/dl (32.0-36.5); MEAN CORPUSCULAR VOLUME 87.4 fl (80.0-96.0); PLATELET COUNT, AUTOMATED 299 10^3/uL (150-450); RED BLOOD COUNT 4.75 10^6/uL (4.30-6.10); WHITE BLOOD COUNT 6.1 10^3/uL (4.0-10.0)
[2024-07-17 12:21] LABS: ALBUMIN 4.2 G/DL (3.2-5.2); ALKALINE PHOSPHATASE 88 U/L (40-129); ALT/SGPT 42 U/L (7.0-40); AST/SGOT 46 U/L (<34); BILIRUBIN,TOTAL 0.7 MG/DL (0.3-1.2); BLOOD UREA NITROGEN 15 MG/DL (9-23); CALCIUM LEVEL 9.4 MG/DL (8.3-10.6); CARBON DIOXIDE LEVEL 27 MMOL/L (20-31); CHLORIDE LEVEL 102 MMOL/L (98-107); CHOLESTEROL LEVEL 177 MG/DL (<200); CREATININE FOR GFR 0.79 MG/DL (0.70-1.30); GLOMERULAR FILTRATION RATE > 90.0 (>42); GLUCOSE, FASTING 79 MG/DL (74-106); HDL CHOLESTEROL 43.1 MG/DL (>40); LDL CHOLESTEROL 97.7 MG/DL (<100); MAGNESIUM LEVEL 2.3 MG/DL (1.8-2.4); NON-HDL-C 133.9 MG/DL; SODIUM LEVEL 142 MMOL/L (136-145); TOTAL PROTEIN 7.2 G/DL (5.7-8.2); TRIGLYCERIDES LEVEL 181 MG/DL (<150)
== END ==
LOC: M PLALAB 09:05
PROVIDERS: ATTEND Physician Assistant
DX: I50.32 Chronic diastolic (congestive) heart failure (principal); I48.0 Paroxysmal atrial fibrillation; E78.00 Pure hypercholesterolemia, unspecified

== ENCOUNTER → 2024-08-23 | Outpatient (CLI) | payer MEDICARE, OTHER | LOC: M EKG 08:57 | PROVIDERS: ATTEND Physician Assistant | DX: I48.0 Paroxysmal atrial fibrillation (principal); Z95.0 Presence of cardiac pacemaker ==

== ENCOUNTER → 2024-09-04 | Outpatient (REF) | payer MEDICARE, OTHER | LOC: M LAB REF 12:07 | PROVIDERS: ATTEND Family Medicine | DX: I48.0 Paroxysmal atrial fibrillation (principal); I11.0 Hypertensive heart disease with heart failure; I50.32 Chronic diastolic (congestive) heart failure ==

== ENCOUNTER → 2024-09-19 | Outpatient (CLI) | payer MEDICARE, OTHER | LOC: M EKG 08:05 | PROVIDERS: ATTEND Physician Assistant | DX: I48.0 Paroxysmal atrial fibrillation (principal) ==

== ENCOUNTER → 2024-12-19 | Outpatient (CLI) | payer MEDICARE, OTHER | LOC: M SOG 11:25 | PROVIDERS: ATTEND Physician Assistant | DX: M79.644 Pain in right finger(s) (principal); S62.600A Fracture of unspecified phalanx of right index finger, initial encounter for closed fracture; X58.XXXA Exposure to other specified factors, initial encounter; Y92.9 Unspecified place or not applicable; Y93.9 Activity, unspecified; Y99.9 Unspecified external cause status ==

== ENCOUNTER → 2025-01-09 | Outpatient (CLI) | payer MEDICARE, OTHER | LOC: M SOG 07:43 | PROVIDERS: ATTEND Physician Assistant | DX: M79.644 Pain in right finger(s) (principal) ==

== ENCOUNTER → 2025-02-13 | Outpatient (CLI) | payer MEDICARE, OTHER | LOC: M SOG 07:44 | PROVIDERS: ATTEND Physician Assistant | DX: M79.644 Pain in right finger(s) (principal) ==